=== PATIENT | male | born 1945 | race African-American/Black ===

== ENCOUNTER 2016-11-12 11:59 | Inpatient (IN) | payer OTHER ==
[2016-11-12 12:15] VITALS: BMI 29.2
[2016-11-12] MEDS ORDERED: ONDANSETRON 4 MG/2 ML VIAL IVPUSH ONE (12:57)
[2016-11-12] MEDS ORDERED: ONDANSETRON 4 MG/2 ML VIAL ONE (13:02)
[2016-11-12 13:28] LABS: URINE APPEARANCE SLCLOUDY; URINE BILIRUBIN NEGATIVE (NEGATIVE); URINE COLOR LTYELLOW; URINE GLUCOSE (UA) 3+ (NEGATIVE); URINE KETONE 1+ (NEGATIVE); URINE NITRITE NEGATIVE (NEGATIVE); URINE UROBILINOGEN NEGATIVE E.U./dl (0.2-1.0)
[2016-11-12 13:36] LABS: INR 1.16 (0.82-1.09); PROTHROMBIN TIME (PATIENT) 12.8 SEC (9.98-11.88)
[2016-11-12 13:39] LABS: URINE BLOOD 1+ (NEGATIVE); URINE LEUK ESTERASE 3+ (NEGATIVE); URINE PROTEIN 1+ (NEGATIVE)
[2016-11-12] MEDS ORDERED: SODIUM CHLORIDE 1,000 ML IV STA (13:49)
[2016-11-12 14:21] LABS: URINE RBC 6 /hpf (0-3); URINE WBC 2 /hpf (3-5)
--- NOTE | 2016-11-12 14:52 | PDOC ---
History of Present Illness - General Chief Complaint: Pain Stated Complaint: ABD PAIN Time Seen by Provider: 11/12/16 12:31 History Source: Patient Exam Limitations: No Limitations - History of Present Illness Travel History: No Initial Comments: 11/12/16 13:46 71-year-old male presents to the ED with complaints of worsening abdominal pain , abdominal distention, nausea, and constipation. Patient states was seen here earlier today was discharged home after receiving an enema and did not start the medication prescribed at home due to the above symptoms so decided bring patient to the ER. Patient denies fever, chills, GI disorders, history of constipation, bowel surgery, recent travel, recent illness. Timing/Duration: reports: getting worse Quality: reports: moderate, cramping, fullness Abdominal Pain Onset Location: reports: generalized abdomen Pain Radiation: reports: no radiation Activities at Onset: reports: none Aggravating Factors: improves with: None Alleviating Factors: improves with: None Past History - Past Medical History Allergies/Adverse Reactions: Allergies Allergy/AdvReac Type Severity Reaction Status Date / Time No Known Allergies Allergy Verified 11/12/16 12:12 Home Medications: Ambulatory Orders Canagliflozin [Invokana] 300 mg PO DAILY 11/12/16 Colesevelam HCl [Welchol (Nf)] 3.75 mg PO DAILY 11/12/16 Glipizide 10 mg PO BID 11/12/16 Metformin HCl [Glucophage] 1,000 mg PO BID 11/12/16 Valsartan [Diovan] 160 mg PO DAILY 11/12/16 Diabetes: Yes - Immunization History Immunization Up to Date: No - Psycho/Social/Smoking Cessation Hx Anxiety: No Suicidal Ideation: No Smoking History: Never smoked Have you smoked in the past 12 months: No Information on smoking cessation initiated: No Hx Alcohol Use: No Drug/Substance Use Hx: No Substance Use Type: None Patient Lives Alone: No Lives with/in: spouse/SO Review of Systems - Review of Systems Able to Perform ROS?: Yes Constitutional: No: Symptoms Reported HEENTM: No: Symptoms Reported Respiratory: No: Symptoms reported Cardiac (ROS): No: Symptoms Reported ABD/GI: Yes: Abdominal Distended, Constipated, Nausea, Vomiting, Abdominal cramping : No: Symptoms Reported Musculoskeletal: No: Symptoms Reported Integumentary: No: Symptoms Reported Neurological: No: Symptoms reported Endocrine: No: Symptoms Reported Hematologic/Lymphatic: No: Symptoms Reported *Physical Exam - Vital Signs Last Vital Signs Temp Pulse Resp BP Pulse Ox 97.6 F 86 18 154/78 98 11/12/16 12:12 11/12/16 14:45 11/12/16 14:45 11/12/16 14:45 11/12/16 14:45 - Physical Exam General Appearance: Yes: Nourished, Appropriately Dressed, Mild Distress HEENT: positive: EOMI, TO. negative: Pale Conjunctivae Neck: positive: Supple Respiratory/Chest: positive: Lungs Clear, Normal Breath Sounds. negative: Respiratory Distress, Accessory Muscle Use Gastrointestinal/Abdominal: positive: Normal Bowel Sounds (lower quadrants), Soft, Decreased BS (right upper quadrant), Distended (generalized), Tenderness ( generalized) Musculoskeletal: negative: CVA Tenderness Extremity: positive: Normal Capillary Refill. negative: Pedal Edema Integumentary: positive: Normal Color, Warm, Moist Neurologic: positive: Motor Strength 5/5 (ambulatory) Heart Score/ECG Review - ECG Intrepretation Rhythm: Regular Rhythm (rate 97.) ED Treatment Course - ADDITIONAL ORDERS Additional order review: Laboratory Results 11/12/16 11/12/16 13:14 12:54 INR 1.16 H Urine Color Ltyellow Urine Appearance Slcloudy Urine pH 5.0 Ur Specific [place] 1.021 Urine Protein 1+ H Urine Glucose (UA) 3+ H Urine Ketones 1+ H Urine Blood 1+ H Urine Nitrite Negative Urine Bilirubin Negative Urine Urobilinogen Negative Ur Leukocyte Esterase 3+ H Urine RBC 6 Urine WBC 2 Ur Epithelial Cells Rare - RADIOLOGY Radiology Studies Ordered: Category Date Time Status ABDOMEN & PELVIS CT W/O CONTR [CT] Stat CT Scan 11/12/16 12:58 Completed - Medications Given in the ED: ED Medications Discontinued Medications Generic Name Dose Route Start Last Admin Trade Name Freq PRN Reason Stop Dose Admin Ondansetron HCl 4 mg 11/12/16 12:57 11/12/16 13:09 Zofran Injection IVPUSH 11/12/16 12:58 4 mg ONCE ONE Administration Medical Decision Making - Critical Care Time Total Critical Care Time (minutes): 35 Critical Care Statement: The care of this patient involved high complexity decision making to prevent further life threatening deterioration of the patient 's condition and/or to evalute & treat vital organ system(s) failure or risk of failure. - Medical Decision Making 11/12/16 13:40 Patient with worsening constipation and abdominal distention and nausea. Patient arrives with abdominal distention decreased bowel sounds of the right upper quadrant no complaints of nausea. Patient concerning for obstruction. Patient ordered for additional labs including type and screen and coags including a CT with by mouth contrast. 11/12/16 14:01 Patient unable to tolerate by mouth and started to vomit brown liquid immediately after taking the contrast. Patient ordered for dry CT and will consider NG tube placement once he returns from CT. 11/12/16 14:24 Patient ordered for IV fluids secondary to ketones in urine and vomiting patient also given Zofran following his episode of vomiting in the ER. 11/12/16 14:[address] shows moderate dilatation of the mid small bowel loops with normal sized to terminal ileum consistent with mid to distal small bowel obstruction. Minimal free fluid in the right lower quadrant, pericolic gutter which is of uncertain etiology. Small fat-containing right inguinal hernia also noted. Case discussed with Dr. menezes surgeon who agrees to place NG tube to low wall suction. Preop orders added such as EKG chest x-ray and awaiting callback from GI. Case also discussed with hospitalist since Dr. Clement does not admit his patients. 11/12/16 16:[address] call back from dr Pritchett as of yet *DC/Admit/Observation/Transfer Diagnosis at time of Disposition: Small bowel obstruction - Discharge Dispostion Admit: Yes
--- NOTE | 2016-11-12 15:39 | EKG ---
Test Reason : Blood Pressure : / mmHG Vent. Rate : 097 BPM Atrial Rate : 097 BPM P-R Int : 140 ms QRS Dur : 068 ms QT Int : 334 ms P-R-T Axes : 051 016 009 degrees QTc Int : 424 ms NORMAL SINUS RHYTHM NORMAL ECG NO PREVIOUS ECGS AVAILABLE Confirmed by KARLOS WADE MD ([id number]) on 11/12/2016 3:39:27 PM Referred By: Confirmed By:KARLOS WADE MD
--- NOTE | 2016-11-12 16:02 | CONSULT ---
Consult Consult Specialty:: Surgery: Referred by:: HospitalistMunira M.D. - History of Present Illness Chief Complaint: Abdominal pain since yesterday, last night with vomiting. He has had no prior surgery. Has been having bowel movements, but small amounts. History of Present Illness: As above, abdominal pain , periumbilical since last night with vomiting. - History Source History Provided By: Patient - Past Medical History Endocrine: Yes: Diabetes Mellitus - Alcohol/Substance Use Hx Alcohol Use: No - Smoking History Smoking history: Never smoked Have you smoked in the past 12 months: No Home Medications - Allergies Allergies/Adverse Reactions: Allergies Allergy/AdvReac Type Severity Reaction Status Date / Time No Known Allergies Allergy Verified 11/12/16 12:12 - Home Medications Home Medications: Ambulatory Orders Canagliflozin [Invokana] 300 mg PO DAILY 11/12/16 Colesevelam HCl [Welchol (Nf)] 3.75 mg PO DAILY 11/12/16 Glipizide 10 mg PO BID 11/12/16 Metformin HCl [Glucophage] 1,000 mg PO BID 11/12/16 Valsartan [Diovan] 160 mg PO DAILY 11/12/16 Physical Exam Vital Signs: Vital Signs Temperature 97.6 F 11/12/16 12:12 Pulse Rate 86 11/12/16 14:45 Respiratory Rate 18 11/12/16 14:45 Blood Pressure 154/78 11/12/16 14:45 O2 Sat by Pulse Oximetry (%) 98 11/12/16 14:45 Gastrointestinal: Yes: Distention (Distended abdomen , soft , not tender . No hernia. No palpable mass.) ...Rectal Exam: Yes: WNL Imaging - Results X-ray: Report Reviewed, Image Reviewed (Dilated loops of small bowel in right upper quadrant of abdomen. No free air, no sign of ischemia.) Cat Scan: Report Reviewed, Image Reviewed Problem List - Problems (1) Intestinal obstruction Code(s): K56.60 - UNSPECIFIED INTESTINAL OBSTRUCTION Qualifiers: Intestinal obstruction type: other intestinal obstruction Qualified Code(s): K56.69 - Other intestinal obstruction (2) Abdominal pain Code(s): R10.9 - UNSPECIFIED ABDOMINAL PAIN Qualifiers: Abdominal location: generalized Qualified Code(s): R10.84 - Generalized abdominal pain (3) Vomiting Code(s): R11.10 - VOMITING, UNSPECIFIED Qualifiers: Vomiting type: bilious vomiting (4) Diabetes Code(s): E11.9 - TYPE 2 DIABETES MELLITUS WITHOUT COMPLICATIONS Assessment/Plan Intestinal obstruction, no prior surgery. He has had colonoscopy in 2010. Plan: NG aspiration , hydrate , follow up CT scn of abdomen in a, ,m, If not improved will need surgery.
[2016-11-12] MEDS ORDERED: morphine CARPU-JECT 2 MG/1 ML DISP.SYRIN IVPUSH PRN (16:24)
[2016-11-12] MEDS ORDERED: ONDANSETRON 4 MG/2 ML VIAL IVPB PRN (16:24)
--- NOTE | 2016-11-12 16:28 | CON.GI ---
Consult Consult Specialty:: GI Referred by:: Hospitalists Reason for Consultation:: Vomiting - History of Present Illness Chief Complaint: "I was vomiting" History of Present Illness: 71M admitted for evaluation of vomiting. He was seen at the [facility] ER early this morning for persistent vomiting and abdominal pain from wednesday. He was sent home and returned in the afternoon for continued vomiting. He had a CT scan revealing suspected SBO. He was seen by surgeon Dr. Jj. NGT was placed. He had a colonoscopy in [address] Hensley that revealed a redundant colon and led to the removal of a diminutive hyperplastic polyp in the rectum. He denies any unintentional weight loss, similar episodes in the past, rectal bleeding, melena. His last BM prior to admission was wednesday. - History Source History Provided By: Patient, Family Member, Medical Record Limitations to Obtaining History: No Limitations - Past Medical History Endocrine: Yes: Diabetes Mellitus - Past Surgical History Past Surgical History: Yes: None - Alcohol/Substance Use Hx Alcohol Use: No History of Substance Use: reports: None - Smoking History Smoking history: Never smoked Have you smoked in the past 12 months: No - Social History Usual Living Arrangement: Alone ADL: Independent Place of : Other ([place]) History of Recent Travel: No Home Medications - Allergies Allergies/Adverse Reactions: Allergies Allergy/AdvReac Type Severity Reaction Status Date / Time No Known Allergies Allergy Verified 11/12/16 12:12 - Home Medications Home Medications: Ambulatory Orders Canagliflozin [Invokana] 300 mg PO DAILY 11/12/16 Colesevelam HCl [Welchol (Nf)] 3.75 mg PO DAILY 11/12/16 Glipizide 10 mg PO BID 11/12/16 Metformin HCl [Glucophage] 1,000 mg PO BID 11/12/16 Valsartan [Diovan] 160 mg PO DAILY 11/12/16 Family Disease History - Family Disease History Family Disease History: Other: Father ( 36: bowel obstruction), Mother ( 90: old age) Other Family History: 6 healthy siblings Review of Systems - Review of Systems Constitutional: denies: Unintentional Wgt. Loss Cardiovascular: denies: Chest Pain Respiratory: denies: SOB Gastrointestinal: reports: Abdominal Pain, Nausea, Vomiting. denies: Constipation, Diarrhea, Melena, Rectal Bleeding, Vomiting Blood Physical Exam-GI Vital Signs: Vital Signs Temperature 97.6 F 11/12/16 12:12 Pulse Rate 87 11/12/16 15:45 Respiratory Rate 18 11/12/16 15:45 Blood Pressure 153/90 11/12/16 15:45 O2 Sat by Pulse Oximetry (%) 99 11/12/16 15:45 Constitutional: Yes: Calm Eyes: No: Sclera Icterus Cardiovascular: Yes: Regular Rate and Rhythm. No: Murmur Respiratory: Yes: CTA Bilaterally Gastrointestinal Inspection: Yes: Distention (mildly protuberant) ...Auscultate: Yes: Hypoactive Bowel Sounds ...Palpate: Yes: Tenderness (TTP Mid abdomen). No: Tenderness, Rebound ...Percussion: Yes: Tympanitic (mildly tympanitic) ...Rectal Exam: Yes: Other (No blood/stool 2 + prostate) Edema: No Neurological: Yes: Alert, Oriented Labs: INR, PTT INR 1.16 (0.82-1.09) H 11/12/16 12:54 Laboratory Tests 11/12/16 11/12/16 02:25 02:25 WBC 8.2 Hgb 16.8 Hct 50.1 H Plt Count 185 Neutrophils % 85.2 H Sodium 142 Potassium 4.8 Chloride 97 L Carbon Dioxide 29 BUN 14 Creatinine 1.3 Total Bilirubin 0.8 AST 38 H ALT 53 Alkaline Phosphatase 99 Creatine Kinase 365 H Albumin 4.4 Lipase 110 Imaging - Results Cat Scan: Report Reviewed, Image Reviewed Problem List - Problems (1) Small bowel obstruction Assessment/Plan: Clay abdomen. ? band, ? internal hernia / alternate pathology Evaluated and being managed by surgery NGT to low suction Timing of repeat imaging per surgery Code(s): K56.69 - OTHER INTESTINAL OBSTRUCTION
--- NOTE | 2016-11-12 17:53 | PN ---
Teaching Attending Note Name of Resident: Isi Horne ATTENDING PHYSICIAN STATEMENT I saw and evaluated the patient. I reviewed the resident's note and discussed the case with the resident. I agree with the resident's findings and plan as documented. SUBJECTIVE: This is a 71-year-old man with a history of HTN, hyperlipidemia, type 2 DM who initially came to the ER last night with abdominal pain. He reported that his last BM was 2 days ago. He denied nausea and vomiting. He was afebrile and tachycardic. His abdomen was distended but non-tender. X-rays showed multiple air-fluid levels with air in the colon. He was treated with an enema and discharged with a prescription for Miralax. He returned this afternoon because the pain was worsening and he developed nausea. He denies fever, chills. He has no history of surgery. CT shows SBO. OBJECTIVE: Vital Signs Period Temp Pulse Resp BP Sys/Balbuena Pulse Ox Last 24 Hr 97.6 F-98.8 F 86-107 18-20 127-154/78-98 97-99 HEART: S1 S2, RRR LUNGS: Clear ABDOMEN: Distended, mild tenderness mid abdomen, decreased BS EXTREMITIES: No edema ASSESSMENT AND PLAN: This is a 71-year-old man with a history of HTN, hyperlipidemia, type 2 DM who presented to the ER with worsening abdominal pain, distention and nausea. 1. SBO - NG tube inserted - NPO - IV fluid - Surgery consult 2. Type 2 diabetes mellitus - Hold metformin, glipizied, Invokana - Fingersticks with Novolog sliding scale 3. Hypertension - Hold Diovan while NPO 4. Hyperlipidemia - Hold Welchol while NPO
[2016-11-12] MEDS: DEXTROSE 5%-0.45% SALINE 1,000 ML IV SCH (17:56)
--- NOTE | 2016-11-12 18:09 | HP ---
CHIEF COMPLAINT: nausea/vomiting PCP: HISTORY OF PRESENT ILLNESS: 71 yea r old amke with PMHX, DM, HTN, HLD, present to the ER with nausea and vomiting. HE was here last night for same symptoms. Abdominal film was unremarkable, he was given 2 emenas and sent home. At home patient did not have a BM, and still with persistent nausea and vomiting. He claims he saw brown emesis, with black coffee ground appearance. Patien have never had any surgeries. He had colonoscopy in 2009, with Dr. Marte, revealed hyperplastic polyp. Denies fever, chilld, DIANE, Chest pain, sob. ER course was notable for: (1) Abdominal CT with dilated loops of bowel; possible SBO (2) (3) Recent Travel:no PAST MEDICAL HISTORY: DM, HTN, HLD PAST SURGICAL HISTORY: none Social History: Smoking:no Alcohol:no Drugs: no Family History: Allergies No Known Allergies Allergy (Verified 11/12/16 12:12) HOME MEDICATIONS: Home Medications Medication Instructions Recorded Canagliflozin [Invokana] 300 mg PO DAILY 11/12/16 Colesevelam HCl [Welchol (Nf)] 3.75 mg PO DAILY 11/12/16 Glipizide 10 mg PO BID 11/12/16 Metformin HCl [Glucophage] 1,000 mg PO BID 11/12/16 Valsartan [Diovan] 160 mg PO DAILY 11/12/16 REVIEW OF SYSTEMS CONSTITUTIONAL: Absent: fever, chills, diaphoresis, generalized weakness, malaise, loss of appetite, weight change HEENT: Absent: rhinorrhea, nasal congestion, throat pain, throat swelling, difficulty swallowing, mouth swelling, ear pain, eye pain, visual changes CARDIOVASCULAR: Absent: chest pain, syncope, palpitations, irregular heart rate, lightheadedness , peripheral edema RESPIRATORY: Absent: cough, shortness of breath, dyspnea with exertion, orthopnea, wheezing, stridor, hemoptysis GASTROINTESTINAL: Positive: nausea, vomiting, distention Absent: abdominal pain,diarrhea, constipation, melena, hematochezia GENITOURINARY: Absent: dysuria, frequency, urgency, hesitancy, hematuria, flank pain, genital pain MUSCULOSKELETAL: Absent: myalgia, arthralgia, joint swelling, back pain, neck pain SKIN: Absent: rash, itching, pallor HEMATOLOGIC/IMMUNOLOGIC: Absent: easy bleeding, easy bruising, lymphadenopathy, frequent infections ENDOCRINE: Absent: unexplained weight gain, unexplained weight loss, heat intolerance, cold intolerance NEUROLOGIC: Absent: headache, focal weakness or paresthesias, dizziness, unsteady gait, seizure, mental status changes, bladder or bowel incontinence PSYCHIATRIC: Absent: anxiety, depression, suicidal or homicidal ideation, hallucinations. PHYSICAL EXAMINATION Vital Signs - 24 hr 11/12/16 11/12/16 15:45 17:41 Temperature 98.8 F Pulse Rate 88 Pulse Rate [ 87 Right Radial] Respiratory 18 20 Rate Blood Pressure 139/84 Blood Pressure 153/90 [Right Arm] O2 Sat by Pulse 99 Oximetry (%) GENERAL: Awake, alert, and fully oriented, in no acute distress. HEAD: Normal with no signs of trauma. EYES: Pupils equal, round and reactive to light, extraocular movements intact, sclera anicteric, conjunctiva clear. No lid lag. EARS, NOSE, THROAT: NG tube in place LUNGS: Breath sounds equal, clear to auscultation bilaterally. No wheezes, and no crackles. No accessory muscle use. HEART: Regular rate and rhythm, normal S1 and S2 without murmur, rub or gallop. ABDOMEN: distended, normoactive bowel sounds, no guarding, no rebound, no masses. No hepatomegaly or splenomegaly. MUSCULOSKELETAL: Normal range of motion at all joints. No bony deformities or tenderness. No CVA tenderness. UPPER EXTREMITIES: 2+ pulses, warm, well-perfused. No cyanosis. No clubbing. Cap refill <2 seconds. No peripheral edema. LOWER EXTREMITIES: 2+ pulses, warm, well-perfused. No calf tenderness. No peripheral edema. NEUROLOGICAL: Cranial nerves II-XII intact. Normal speech. Normal gait. PSYCHIATRIC: Cooperative. Good eye contact. Appropriate mood and affect. SKIN: Warm, dry, normal turgor, no rashes or lesions noted. ASSESSMENT/PLAN: 71 year old male with PMHS DM, HTN , HLD, constipation,no previous surgeries, presents with nause and vomiting brown/black emesis x 1 day. 1. Small bowel obstruction: virgin abdomen r/o hernia/CA or other acute pathology -NPO , NG tube, IVF, anti emetic, pain control -CT abdomen today reveals dilated loops of bowel; transition point not seen -Repeat CT in am ; if symptoms do not improve; most likely need surgery; -Surgery/GI consulted 2. DM : -hypergylcemia: SS -NPO for now ; check BS q4h: insulin SS; on IVF w dextrose 3. HTN: -NPO now; monitor vital for elevated bp; medication prn 4. Acute kidney injury: secondary to prerenal/dehydration -IVF; trend BUN/CR FEN: Fluids: dextrose 1/2 NS 100mls/hr Electrolytes: wnl Diet : NPO VTE prophylaxis: scds for now Problem List - Problem (1) Diabetes Code(s): E11.9 - TYPE 2 DIABETES MELLITUS WITHOUT COMPLICATIONS (2) Small bowel obstruction Code(s): K56.69 - OTHER INTESTINAL OBSTRUCTION (3) Vomiting Code(s): R11.10 - VOMITING, UNSPECIFIED Qualifiers: Vomiting type: bilious vomiting (4) Constipation Code(s): K59.00 - CONSTIPATION, UNSPECIFIED Qualifiers: Constipation type: unspecified constipation type Qualified Code(s): K59.00 - Constipation, unspecified (5) HTN (hypertension) Code(s): I10 - ESSENTIAL (PRIMARY) HYPERTENSION Visit type - Emergency Visit Emergency Visit: Yes ED Registration Date: 11/12/16 Care time: The patient presented to the Emergency Department on the above date and was hospitalized for further evaluation of their emergent condition. - New Patient This patient is new to me today: Yes Date on this admission: 11/12/16 - Critical Care Critical Care patient: No
[2016-11-12] MEDS: PANTOPRAZOLE SODIUM 100 ML IVPB SCH (18:25)
[2016-11-12] MEDS: INSULIN SLIDING SCALE (NOVOLOG) 1 VIAL SQ SCH ×2 (18:25→22:20)
[2016-11-12 21:25] LABS: BASOPHIL 0.1 % (0-2.0); EOSINOPHIL 0.2 % (0-4.5); MCH 28.6 pg (25.7-33.7); MCHC 33.6 g/dl (32.0-35.9); MEAN CELL VOLUME 85.1 fl (80-96); MEAN PLT VOLUME 8.1 fl (7.5-11.1); NEUTROPHILS 81.4 % (42.8-82.8); PLATELET COUNT 163 K/MM3 (134-434); RDW 14.7 % (11.9-15.9); WHITE BLOOD COUNT 6.2 K/mm3 (4.0-10.0)
[2016-11-12 21:48] LABS: CALCIUM 8.9 mg/dL (8.5-10.1)
[2016-11-13] MEDS: INSULIN SLIDING SCALE (NOVOLOG) 1 VIAL SQ SCH ×6 (02:36→21:11)
[2016-11-13] MEDS: DEXTROSE 5%-0.45% SALINE 1,000 ML IV SCH (04:30)
[2016-11-13 07:57] LABS: BASOPHIL 0.4 % (0-2.0); EOSINOPHIL 0.4 % (0-4.5); MCH 28.6 pg (25.7-33.7); MCHC 33.4 g/dl (32.0-35.9); MEAN CELL VOLUME 85.8 fl (80-96); MEAN PLT VOLUME 7.9 fl (7.5-11.1); NEUTROPHILS 69.7 % (42.8-82.8); PLATELET COUNT 150 K/MM3 (134-434)
[2016-11-13 08:22] LABS: CALCIUM 8.8 mg/dL (8.5-10.1); MAGNESIUM 3.2 mg/dL (1.8-2.4)
[2016-11-13 08:25] LABS: CREATININE 1.1 mg/dL (0.7-1.3); PHOSPHOROUS 3.5 mg/dL (2.5-4.9)
[2016-11-13] MEDS: PANTOPRAZOLE SODIUM 100 ML IVPB SCH (10:14)
[2016-11-13] MEDS ORDERED: INSULIN (NOVOLOG) ASPART 100 UNITS/ML 10ML VIAL ONE (11:17)
--- NOTE | 2016-11-13 14:55 | PN ---
GI Progress Note Subjective: GI NOte: Pain has resolved. Had several large BMs since the CT contrast. Tolerated liquids and wants more to eat. NO bleeding. CT reveals no obstruction but there are thickened bowel loops which do not extend to involve the ileum. - Objective Vital Signs: Vital Signs Temperature 97.2 F L 11/13/16 14:29 Pulse Rate 92 H 11/13/16 14:29 Respiratory Rate 20 11/13/16 14:29 Blood Pressure 126/77 11/13/16 14:29 O2 Sat by Pulse Oximetry (%) 99 11/13/16 09:00 Constitutional: Calm Gastrointestinal Inspection: Yes: Distention ...Auscultate: Yes: Normoactive Bowel Sounds ...Palpate: Yes: Soft, Other (nontender) ...Percussion: Yes: Tympanitic Labs: CBC, BMP 11/13/16 06:30 11/13/16 06:30 INR, PTT INR 1.16 (0.82-1.09) H 11/12/16 12:54 Assessment/Plan Suspect resolving mesenteric adenitis or other infectious enteritis but cannot exclude Crohn's Disease, a resolved internal hernia or small bowel diverticulitis. Doubt ischemia or neoplasms. Will advance diet as tolerated. If he fails to fully resolve he will need CT enterography and perhaps a capsule endoscopy.
--- NOTE | 2016-11-13 15:42 | PN ---
<Isi Horne - Last Filed: 11/13/16 15:34> Physical Exam: SUBJECTIVE: Patient seen and examined; NG tube D/c'd. 2 loose BM today. No nausea/vomiting. Denies fever, chills, abdominal pain. OBJECTIVE: Vital Signs Period Temp Pulse Resp BP Sys/Balbuena Pulse Ox Last 24 Hr 97.2 F-98.8 F 86-95 18-20 126-153/77-93 99-99 GENERAL: The patient is awake, alert, and fully oriented, in no acute distress. HEAD: Normal with no signs of trauma. EYES: PERRL, extraocular movements intact, sclera anicteric, conjunctiva clear. No ptosis. LUNGS: Breath sounds equal, clear to auscultation bilaterally, no wheezes, no crackles, no accessory muscle use. HEART: Regular rate and rhythm, S1, S2 without murmur, rub or gallop. ABDOMEN: Soft, less distended, hyperactive bowel sounds, no guarding, no rebound, no hepatosplenomegaly, no masses. EXTREMITIES: 2+ pulses, warm, well-perfused, no edema. NEUROLOGICAL: Cranial nerves II through XII grossly intact. Normal speech, gait not observed. PSYCH: Normal mood, normal affect. SKIN: Warm, dry, normal turgor, no rashes or lesions noted Active Medications CBC, BMP 11/13/16 06:30 11/13/16 06:30 Generic Name Dose Route Start Last Admin Trade Name Freq PRN Reason Stop Dose Admin Dextrose/Sodium Chloride 1,000 mls @ 100 mls/hr 11/12/16 16:30 11/13/16 04:30 D5-1/2ns - IV 100 mls/hr ASDIR DEBBIE Administration Pantoprazole Sodium 100 mls @ 200 mls/hr 11/12/16 18:15 11/13/16 10:14 Protonix 40mg Ivpb (Pre-Docked) IVPB 200 mls/hr DAILY DEBBIE Administration Insulin Aspart 1 vial 11/12/16 18:00 11/13/16 11:15 Novolog Vial Sliding Scale - SQ 4 units Q4HPO DEBBIE Administration Protocol Ondansetron HCl 4 mg 11/12/16 16:24 Zofran Injection IVPB Q6H PRN NAUSEA ASSESSMENT/PLAN: 71 year old male with PMHS DM, HTN , HLD, constipation,no previous surgeries, presents with nausea and vomiting brown/black emesis x [address] this am negative for small bowel obstruction. Advance diet to soft. Patient sisters states today that their father of an "obstruction" at age 40, no other detailed history known. 1. Nausea/ vomiting most likely secondary to resolved SBO/acute infective pathology/ hernia ; r/o inflammatory process or other acute pathology -advance diet; if tolerates and H/H/ are stable; d/c in am -f/u GI as outpatient -Surgery/GI consulted 2. DM : -insulin SS -BS ACHS 3. HTN: -restart valsartan 4. Acute kidney injury: secondary to prerenal/dehydration -IVF; trend 01/10.1 FEN: Fluids: NS 100mls/hr Electrolytes: wnl Diet : soft VTE prophylaxis: scds Disposition: d/c in am if stable; dnaiel diet; Problem List - Problems (1) Diabetes Code(s): E11.9 - TYPE 2 DIABETES MELLITUS WITHOUT COMPLICATIONS (2) Small bowel obstruction Code(s): K56.69 - OTHER INTESTINAL OBSTRUCTION (3) Vomiting Code(s): R11.10 - VOMITING, UNSPECIFIED Qualifiers: Vomiting type: bilious vomiting (4) Constipation Code(s): K59.00 - CONSTIPATION, UNSPECIFIED Qualifiers: Constipation type: unspecified constipation type Qualified Code(s): K59.00 - Constipation, unspecified (5) HTN (hypertension) Code(s): I10 - ESSENTIAL (PRIMARY) HYPERTENSION Visit type - Emergency Visit Emergency Visit: Yes ED Registration Date: 11/12/16 Care time: The patient presented to the Emergency Department on the above date and was hospitalized for further evaluation of their emergent condition. - New Patient This patient is new to me today: No - Critical Care Critical Care patient: No <Alexis Bragg - Last Filed: 11/13/16 16:14> Physical Exam: ATTENDING PHYSICIAN STATEMENT I saw and evaluated the patient. I reviewed the resident's note and discussed the case with the resident. I agree with the resident's findings and plan as documented. SUBJECTIVE: seen and evaluated at the bedside OBJECTIVE: resting comfortably in no distress ASSESSMENT AND PLAN: 71 year old man with PMHX, DM, HTN, HLD admitted for possible SBO -repeat CT shows now SBO and thickened small bowel wall -possibly due to gasteroenteritis -pt tolerating liquids; will advance to soft -Hb stable
[2016-11-13] MEDS ORDERED: SODIUM CHLORIDE 1,000 ML IV SCH (15:45)
[2016-11-13] MEDS: VALSARTAN 160 MG TABLET (UD) PO SCH (16:56)
--- NOTE | 2016-11-13 19:15 | PN ---
Progress Note, Physician - Current Medication List Current Medications: Active Medications Insulin Aspart (Novolog Vial Sliding Scale -) 1 vial SQ Q4HPO DEBBIE PRN Reason: Protocol Last Admin: 11/13/16 18:17 Dose: 2 units Ondansetron HCl (Zofran Injection) 4 mg IVPB Q6H PRN PRN Reason: NAUSEA Pantoprazole Sodium (Protonix -) 40 mg PO DAILY DEBBIE Valsartan (Diovan -) 160 mg PO DAILY [facility] Last Admin: 11/13/16 16:56 Dose: 160 mg - Objective Vital Signs: Vital Signs Temperature 98.1 F 11/13/16 16:25 Pulse Rate 88 11/13/16 16:25 Respiratory Rate 20 11/13/16 16:25 Blood Pressure 121/89 11/13/16 16:25 O2 Sat by Pulse Oximetry (%) 99 11/13/16 09:00 Labs: CBC, BMP 11/13/16 06:30 11/13/16 06:30 INR, PTT INR 1.16 (0.82-1.09) H 11/12/16 12:54 Problem List - Problems (1) Intestinal obstruction Code(s): K56.60 - UNSPECIFIED INTESTINAL OBSTRUCTION Qualifiers: Intestinal obstruction type: other intestinal obstruction Qualified Code(s): K56.69 - Other intestinal obstruction (2) Abdominal pain Code(s): R10.9 - UNSPECIFIED ABDOMINAL PAIN Qualifiers: Abdominal location: generalized Qualified Code(s): R10.84 - Generalized abdominal pain (3) Vomiting Code(s): R11.10 - VOMITING, UNSPECIFIED Qualifiers: Vomiting type: bilious vomiting (4) Diabetes Code(s): E11.9 - TYPE 2 DIABETES MELLITUS WITHOUT COMPLICATIONS Assessment/Plan Patient seen early this morning and again in the evening. Has no abdominal pain . Has had several bowel movements. Abdomen is soft , not tender. Very minimal NG drainage. CT scan shows no intestinal obstruction but enteritis. D/C NG tube , resume feeding. Medical management of enteritis.
[2016-11-14] MEDS ORDERED: INSULIN SLIDING SCALE (NOVOLOG) 1 VIAL SQ SCH (07:00)
[2016-11-14 07:41] LABS: BASOPHIL 0.5 % (0-2.0); EOSINOPHIL 1.7 % (0-4.5); MCH 28.7 pg (25.7-33.7); MCHC 33.2 g/dl (32.0-35.9); MEAN CELL VOLUME 86.7 fl (80-96); MEAN PLT VOLUME 7.8 fl (7.5-11.1); NEUTROPHILS 46.7 % (42.8-82.8); PLATELET COUNT 120 K/MM3 (134-434); RDW 14.8 % (11.9-15.9); WHITE BLOOD COUNT 3.8 K/mm3 (4.0-10.0)
[2016-11-14 08:07] LABS: ALBUMIN 3.4 g/dl (3.4-5.0); ANION GAP 11 (8-16); CALCIUM 8.5 mg/dL (8.5-10.1); CO2 29 mmol/L (21-32); GLUCOSE,RANDOM 149 mg/dL (74-106); SGOT/AST 24 U/L (15-37)
[2016-11-14 08:10] LABS: ALK PHOS 64 U/L (45-117); BILIRUBIN,TOTAL 0.7 mg/dL (0.2-1.0); C-REACTIVE PROTEIN 4.4 MG/DL (0.00-0.3); CREATININE 1.1 mg/dL (0.7-1.3); LDH 216 U/L (87-241); SGPT/ALT 33 U/L (12-78); TOT PROT 6.1 g/dl (6.4-8.2)
[2016-11-14] MEDS ORDERED: PT OWN MED DRAWER 7, Y5N ONE (09:18)
[2016-11-14] MEDS: VALSARTAN 160 MG TABLET (UD) PO SCH (09:21)
--- NOTE | 2016-11-14 09:49 | DS ---
Physical Examination Vital Signs: Vital Signs Temperature 98.8 F 11/14/16 06:00 Pulse Rate 79 11/14/16 06:00 Respiratory Rate 16 11/14/16 06:00 Blood Pressure 119/53 11/14/16 06:00 O2 Sat by Pulse Oximetry (%) 99 11/13/16 21:00 Labs: CBC, BMP 11/14/16 06:00 11/14/16 06:00 Discharge Summary Reason For Visit: SMALL BOWEL OBSTRUCTION Current Active Problems Abdominal pain (Acute) Diabetes (Acute) HTN (hypertension) (Acute) Intestinal obstruction (Acute) Small bowel obstruction (Acute) Vomiting (Acute) Hospital Course: 71 yea r old amke with PMHX, DM, HTN, HLD, present to the ER with nausea and vomiting. HE was here last night for same symptoms. Abdominal film was unremarkable, he was given 2 emenas and sent home. At home patient did not have a BM, and still with persistent nausea and vomiting. He claims he saw brown emesis, with black coffee ground appearance. Patien have never had any surgeries. He had colonoscopy in 2009, with Dr. Marte, revealed hyperplastic polyp. Denies fever, chilld, DIANE, Chest pain, sob. 71 year old man with PMHX, DM, HTN, HLD admitted for possible SBO -repeat CT shows now SBO and thickened small bowel wall -possibly due to gasteroenteritis -tolerating diet well -Hb showed slight decrease but likely dilutional as pt was getting IVF hydration and platelets decreased as well -to follow up with PCP as an outpatient I spent greater than 40 minutes preparing this discharge - Instructions Referrals: Mikie Clement MD [Primary Care Provider] - 2 Weeks - Home Medications Comprehensive Discharge Medication List: Ambulatory Orders Canagliflozin [Invokana] 300 mg PO DAILY 11/12/16 Colesevelam HCl [Welchol (Nf)] 3.75 mg PO DAILY 11/12/16 Glipizide 10 mg PO BID 11/12/16 Metformin HCl [Glucophage] 1,000 mg PO BID 11/12/16 Valsartan [Diovan] 160 mg PO DAILY 11/12/16 This patient is new to me today: No Emergency Visit: Yes ED Registration Date: 11/12/16 Care time: The patient presented to the Emergency Department on the above date and was hospitalized for further evaluation of their emergent condition. Critical Care patient: No - Discharge Referral Referred to [facility] Yes Physician Referral: Mikie Lombardo MD ([facility])
[2016-11-14] MEDS ORDERED: PANTOPRAZOLE 40 MG TABLET (FP) PO SCH (10:00)
[2016-11-14 10:16] VITALS: BP 125/76; PULSE 84; TEMP 98.7
== END 2016-11-14 11:19 | disposition home or self-care (01) | DRG 392 ==
LOC: JER 11:59 → JERBED 15:06 → J8W 16:03
PROVIDERS: ADMIT Internal Medicine; ATTEND Internal Medicine
PROC: 0D9670Z Drainage of Stomach with Drainage Device, Via Natural or Artificial Opening (ICD-10-PCS; principal; 2016-11-13)
DX: K52.9 Noninfective gastroenteritis and colitis, unspecified (principal); N17.9 Acute kidney failure, unspecified; E86.0 Dehydration; E78.5 Hyperlipidemia, unspecified; E11.9 Type 2 diabetes mellitus without complications; I10 Essential (primary) hypertension; Z79.84 Long term (current) use of oral hypoglycemic drugs; K59.00 Constipation, unspecified
CPT/HCPCS: 36415; 71010-TC; 74020-TC; 74176-TC; 80048; 80053; 81003; 81015; 82550; 82553; 83605; 83615; 83690; 83735; 84100; 84484; 85025; 85610; 86140; 86671; 86850; 86900; 86901; 93005; 93010; 99283-25; 99284-25; Q9967

== ENCOUNTER 2018-01-20 07:02 | Emergency (ER) | payer OTHER ==
--- NOTE | 2018-01-20 07:15 | PDOC ---
History of Present Illness - General Stated Complaint: RIGHT KNEE PAIN Time Seen by Provider: 01/20/18 07:15 - History of Present Illness Initial Comments: 01/20/18 07:16 Mr. Cullen is a 73 yo male w/ pmh of DM, HTN, HLD who presents complaining of knee pain since he walked into a chair this morning at approximately 2am on his way to the bathroom. He reports it had initially swollen up a lot but that swelling has now decreased. He is able to walk currently however does so with a limp. He has no other complaints at this time. The patient denies chest pain, shortness of breath, headache and dizziness. Denies fever, chills, nausea, vomit, diarrhea and constipation. Denies dysuria, frequency, urgency and hematuria. Allergies: NKDA Past History - Past Medical History Allergies/Adverse Reactions: Allergies Allergy/AdvReac Type Severity Reaction Status Date / Time No Known Allergies Allergy Verified 11/12/16 12:12 Home Medications: Ambulatory Orders Canagliflozin [Invokana] 300 mg PO DAILY 11/12/16 Colesevelam HCl [Welchol (Nf)] 3.75 mg PO DAILY 11/12/16 Metformin HCl [Glucophage] 1,000 mg PO BID 11/12/16 Exenatide [Byetta] 10 mcg SQ DAILY 01/20/18 Simvastatin 40 mg PO DAILY 01/20/18 Diabetes: Yes HTN: Yes - Immunization History Immunization Up to Date: No - Suicide/Smoking/Psychosocial Hx Smoking History: Never smoked Have you smoked in the past 12 months: No Hx Alcohol Use: No Drug/Substance Use Hx: No Substance Use Type: None Hx Substance Use Treatment: No Review of Systems - Review of Systems Comments:: 01/20/18 07:26 GENERAL/CONSTITUTIONAL: No fever or chills. No weakness. HEAD, EYES, EARS, NOSE AND THROAT: No change in vision. No ear pain or discharge. No sore throat. CARDIOVASCULAR: No chest pain or shortness of breath RESPIRATORY: No cough, wheezing, or hemoptysis. GASTROINTESTINAL: No nausea, vomiting, diarrhea or constipation. GENITOURINARY: No dysuria, frequency, or change in urination. MUSCULOSKELETAL: +Right outside knee pain at impact site SKIN: No rash NEUROLOGIC: No headache, vertigo, loss of consciousness, or change in strength/ sensation. ENDOCRINE: No increased thirst. No abnormal weight change HEMATOLOGIC/LYMPHATIC: No anemia, easy bleeding, or history of blood clots. ALLERGIC/IMMUNOLOGIC: No hives or skin allergy. *Physical Exam - Physical Exam Comments: 01/20/18 07:27 GENERAL: Awake, alert, and fully oriented, in no acute distress HEAD: No signs of trauma, normocephalic, atraumatic EYES: PERRLA, EOMI, sclera anicteric, conjunctiva clear ENT: Auricles normal inspection, hearing grossly normal, nares patent, oropharynx clear without exudates. Moist mucosa NECK: Normal ROM, supple, no lymphadenopathy, JVD, or masses LUNGS: No distress, speaks full sentences, clear to auscultation bilaterally HEART: Regular rate and rhythm, normal S1 and S2, no murmurs, rubs or gallops, peripheral pulses normal and equal bilaterally. ABDOMEN: Soft, nontender, normoactive bowel sounds. No guarding, no rebound. No masses EXTREMITIES: +Right knee appears swollen anteriorly with tenderness to palpation on lateral superior aspect. No limitation of motion. NEUROLOGICAL: Cranial nerves II through XII grossly intact. Normal speech, normal gait, no focal sensorimotor deficits SKIN: Warm, Dry, normal turgor, no rashes or lesions noted. Medical Decision Making - Medical Decision Making 01/20/18 07:28 Mr. Cullen is a 73 yo male w/ pmh as described who presents for evaluation of right knee pain. He is able to walk with a slight limp at this time and declines pain medication. Reports he came here "to get checked out" only. Patient able to range knee completely with only mild swelling and TTP at this time. Patient is retired and will be able to rest and ice knee as needed. Discussed pain control with OTC medicines and patient verbalized understanding and agreement. Will discharge with ortho follow-up as needed. Discharging patient to home. *DC/Admit/Observation/Transfer Diagnosis at time of Disposition: Bursitis of right knee Qualifiers: Knee bursitis location: unspecified Qualified Code(s): M70.51 - Other bursitis of knee, right knee - Discharge Dispostion Disposition: HOME - Referrals Referrals: Mikie Clement MD [Primary Care Provider] - Carter Morales MD [Staff Physician] - - Patient Instructions Printed Discharge Instructions: DI for Knee Pain, DI for Bursitis Additional Instructions: Please return to ER if any increase in pain, fever, chills, or other concerning symptoms. Rest knee and elevate as discussed and take over the counter medications per package instructions for pain control. Follow-up with orthopedics as needed for further evaluation. - Post Discharge Activity
[2018-01-20 07:33] VITALS: BP 155/100; PULSE 85; TEMP 98.1; BMI 29.7
--- NOTE | 2018-01-20 07:51 | PDOC ---
Attending Attestation - Resident Resident Name: Montana Walsh - ED Attending Attestation I have performed the following: I have examined & evaluated the patient, The case was reviewed & discussed with the resident, I agree w/resident's findings & plan, Exceptions are as noted - HPI HPI: 01/20/18 07:51 73y M hx of dm, htn, hl presents with R knee pain after bumping his knee last night against a chair, noticed some swelling and pain on his knee. Notes the swelling has improved and the pain is minimal. Denies any redness/ numnbess/ tingling, no falls or other injuries. GENERAL: The patient is awake, alert, and fully oriented, Nontoxic - in no acute distress. R KNEE Exam: swelling of the R knee bursa, minimal tenderness, no erythema, warmth no focal bony tenderness, normal ROM of R knee. Normal gait. n/v intact distally dx: traumatic bursitis supportive care at home - motrin/tylenol, rest, elevation PMD fu - Physicial Exam PE: 01/20/18 08:07 see above - Medical Decision Making 01/20/18 08:06 see above
== END 2018-01-20 08:27 | disposition home or self-care (01) ==
LOC: JER 07:02
DX: E78.00 Pure hypercholesterolemia, unspecified (principal); E11.9 Type 2 diabetes mellitus without complications; Z79.84 Long term (current) use of oral hypoglycemic drugs; W22.03XA Walked into furniture, initial encounter; Y93.89 Activity, other specified; Y92.038 Other place in apartment as the place of occurrence of the external cause; Y99.8 Other external cause status
CPT/HCPCS: 99282-25

== ENCOUNTER 2019-08-16 18:10 | Inpatient (IN) | payer OTHER ==
[2019-08-16 18:16] VITALS: BMI 30.4
--- NOTE | 2019-08-16 18:17 | PDOC ---
Rapid Medical Evaluation Chief Complaint: Rectal Bleed Time Seen by Provider: 08/16/19 18:13 Medical Evaluation: Allergies Allergy/AdvReac Type Severity Reaction Status Date / Time No Known Allergies Allergy Verified 11/12/16 12:12 08/16/19 18:14 Patient c/o: rectal bleeding since seen by urologist today, states something was put up there and felt some pressure, had 4 bms since this afternoon, no abd pain, + rectal pain Patient on brief exam: tachy, no abd tenderness Patient ordered for: labs, type and screen , iv, ekg Patient to proceed to the ED Discharge Disposition - Diagnosis Rectal bleeding - Discharge Dispostion Condition at time of disposition: Fair - Referrals - Patient Instructions - Post Discharge Activity
[2019-08-16 18:50] LABS: BASO % 0.4 % (0-2.0); EOS % 0.1 % (0-4.5); HEMATOCRIT 40.8 % (35.4-49); HEMOGLOBIN 13.6 GM/dL (11.7-16.9); LYMPH % 18.8 % (8-40); MCH 27.1 pg (25.7-33.7); MCHC 33.3 g/dl (32.0-35.9); MEAN CELL VOLUME 81.3 fl (80-96); MEAN PLT VOLUME 7.3 fl (7.5-11.1); MONO % 6.1 % (3.8-10.2); NEUT % 74.6 % (42.8-82.8); PLATELET COUNT 192 K/MM3 (134-434); RBC 5.02 M/mm3 (4.00-5.60); RDW 17.6 % (11.9-15.9); WHITE BLOOD COUNT 5.9 K/mm3 (4.0-10.0)
[2019-08-16 19:06] LABS: BILIRUBIN,TOTAL 0.6 mg/dL (0.2-1); BLOOD UREA NITROGEN 12.3 mg/dL (7-18); CALCIUM 8.8 mg/dL (8.5-10.1); CREATININE 1.3 mg/dL (0.55-1.3); POTASSIUM 4.2 mmol/L (3.5-5.1)
--- NOTE | 2019-08-16 19:37 | PDOC ---
History of Present Illness - General Chief Complaint: Rectal Bleed Stated Complaint: RECTAL BLEEDING Time Seen by Provider: 08/16/19 18:13 - History of Present Illness Initial Comments: 08/16/19 19:37 74 yo M PMH DM, HTN, HLD, enlarged prostate, p/w bloody bowel movements. Patient reports that he saw his urologist (Dr. Celeste) for some procedure today, and had had 4 bloody bowel movements since then. Patient with poor insight, does not know what the procedure was or the reason it was being performed. Complains of generalized weakness, but denies CP, SOB, abd pain, constipation/ diarrhea, DIAEN. Patient reports that the bowel movements have alternated between bright red, black, and brown streaked with blood. Has no prior history of rectal bleeding and is not on any blood thinners. Past History - Past Medical History Allergies/Adverse Reactions: Allergies Allergy/AdvReac Type Severity Reaction Status Date / Time No Known Allergies Allergy Verified 08/16/19 18:15 Home Medications: Ambulatory Orders Canagliflozin [Invokana] 300 mg PO DAILY 11/12/16 Colesevelam HCl [Welchol (Nf)] 3.75 mg PO DAILY 11/12/16 Metformin HCl [Glucophage] 1,000 mg PO BID 11/12/16 Exenatide [Byetta] 10 mcg SQ DAILY 01/20/18 Simvastatin 40 mg PO DAILY 01/20/18 Brimonidine/Dorzolamide/Pf [Brimonidine 0.15%-Dorzolam 2%] 10 ml OP DAILY Insulin Glargine,Hum.rec.anlog [Tonadeen Solostar] 300 unit SQ WEEKLY 08/16/19 Semaglutide [Ozempic] 0.25 mg SQ DAILY 08/16/19 COPD: No Diabetes: Yes HTN: Yes - Immunization History Immunization Up to Date: No - Psycho Social/Smoking Cessation Hx Smoking History: Never smoked Have you smoked in the past 12 months: No Information on smoking cessation initiated: No Hx Alcohol Use: No Drug/Substance Use Hx: No Substance Use Type: None Hx Substance Use Treatment: No *Physical Exam - Vital Signs Last Vital Signs Temp Pulse Resp BP Pulse Ox 97.6 F 123 H 19 137/82 100 08/16/19 18:13 08/16/19 18:13 08/16/19 18:13 08/16/19 18:13 08/16/19 18:13 - Physical Exam 08/17/19 02:41 Gen: well-developed, well-nourished, NAD Neuro: AAOX4, CN II-XII intact, FTN intact, EOMI, PERRLA, 5/5 strength, SILT HEENT: atraumatic, normocephalic, dry mucous membranes Neck: trachea midline, supple CV: tachycardic, regular rhythm, no murmurs, rubs, or gallops Pulm: CTA b/l, no wheezing Abd: soft, non-distended, non-tender Rectal: dried blood around anus, no apparent hemorrhoids, teresita red blood on exam MSK: full ROM, intact pulses Extr: no edema, no deformities Skin: warm, dry ED Treatment Course - LABORATORY CBC & Chemistry Diagram: 08/16/19 22:50 08/16/19 18:30 - ADDITIONAL ORDERS Additional order review: Laboratory Results 08/16/19 08/16/19 18:30 18:30 Sodium 138 Potassium 4.2 Chloride 104 Carbon Dioxide 24 Anion Gap 10 BUN 12.3 Creatinine 1.3 Est GFR (CKD-EPI)AfAm 63.18 Est GFR (CKD-EPI)NonAf 54.51 Random Glucose 273 H Calcium 8.8 Total Bilirubin 0.6 AST 26 ALT 29 Alkaline Phosphatase 89 Total Protein 7.0 Albumin 4.0 Blood Type O NEGATIVE Antibody Screen Negative 08/16/19 18:30 RBC 5.02 MCV 81.3 MCHC 33.3 RDW 17.6 H MPV 7.3 L Neutrophils % 74.6 D Lymphocytes % 18.8 D Monocytes % 6.1 Eosinophils % 0.1 D Basophils % 0.4 Medical Decision Making - Medical Decision Making 08/16/19 20:48 Concern for acute GI bleed. Potential etiologies include PUD, diverticulosis, hemorrhoids. - CBC, CMP - EKG - PT/INR, PTT - heme occult - 1L LR Initial Hgb 13.6, however patient with dried blood around the anus and bright red stool on heme occult. EKG sinus tachycardia at 113 bpm. Will get repeat CBC to track change. 08/17/19 22:30 Repeat Hgb 12.5. Heme occult with trace blood. Patient with another bloody bowel movement. Unable to contact urologist to clarify what procedure was performed. Will admit. Discharge - Discharge Information Problems reviewed: Yes Clinical Impression/Diagnosis: Rectal bleeding Condition: Fair - Follow up/Referral - Patient Discharge Instructions - Post Discharge Activity
[2019-08-16] MEDS ORDERED: LACTATED RINGERS SOLUTION 1,000 ML/1,000 ML INFUS.BAG IV STA (19:38)
--- NOTE | 2019-08-16 20:42 | PDOC ---
Documentation entered by Alexandro Matthew SCRIBE, acting as scribe for Jennie Begum DO. Jennie Begum DO: This documentation has been prepared by the Vipul childers Xhesika, SCRIBE, under my direction and personally reviewed by me in its entirety. I confirm that the documentation accurately reflects all work, treatment, procedures, and medical decision making performed by me. Attending Attestation - Resident Resident Name: [email or web address] - ED Attending Attestation I have performed the following: I have examined & evaluated the patient, The case was reviewed & discussed with the resident, I agree w/resident's findings & plan, Exceptions are as noted - HPI HPI: 08/16/19 20:13 The patient is a 74 year old male with a significant PMH of IDDM, HTN, HLD and enlarged prostate who presents to the emergency department for rectal bleeding. Patient states he had a procedure with his urologist Dr. Celeste (does not know the name of the procedure) today and since then pt endorsed 4 bowel movements with streaks of blood/ clots and associated weakness. The patient denies chest pain, shortness of breath, headache and dizziness. Denies fever, chills, cough, nausea, vomiting. Denies dysuria, frequency, urgency and hematuria. Allergies: NKDA PCP: Dr. Noonan Urologist: Dr. Elaina Thapa - Physicial Exam PE: 08/16/19 20:32 GENERAL: Awake, alert, and fully oriented, in no acute distress LUNGS: Breath sounds equal, clear to auscultation bilaterally. No wheezes, and no crackles HEART: +tachy. Normal S1 and S2, no murmurs, rubs or gallops ABDOMEN: Soft, nontender, normoactive bowel sounds. No guarding, no rebound. No masses EXTREMITIES: Normal range of motion, no edema. No clubbing or cyanosis. No cords, erythema, or tenderness NEUROLOGICAL: Cranial nerves II through XII grossly intact. SKIN: Warm, Dry, normal turgor, no rashes or lesions noted. - Medical Decision Making 08/16/19 20:39 I, Dr. Jennie Begum DO, attest that this document has been prepared under my direction and personally reviewed by me in its entirety. I further attest, that it accurately reflects all work, treatment, procedures and medical decision -making performed by me. a/p: 74yo male who had a rectal procedure for his prostate today in the office with Dr. Celeste and has had 6 episodes of rectal bleeding since the procedure -feels generally weak -pt arrives tachy -labs sent from [facility] reviewed - hgb 13 however, BRBPR on exam, will monitor and repeat hgb will also discuss with Dr. Joni Thapa -pt follows with a GI specialist - has had 2 colonoscopy in the past 08/16/19 23:12 hgb down to 12 still stable multiple calls placed to Dr. Angeles without a call back 08/16/19 23:35 case discussed with BRITTNY who accepts pt to service Discharge - Discharge Information Problems reviewed: Yes Clinical Impression/Diagnosis: Rectal bleeding Condition: Fair - Admission Yes - Follow up/Referral Referrals: Mikie Clement MD [Primary Care Provider] - - Patient Discharge Instructions - Post Discharge Activity Heart Score/ECG Review - ECG Intrepretation Comment:: 08/16/19 20:59 sinus tach at 113, nl axis, nl interval, no acute st/t wave findings
[2019-08-16 20:56] LABS: INR 1.41 (0.83-1.09); PROTHROMBIN TIME (PATIENT) 16.7 SEC (9.7-13.0)
[2019-08-16 20:59] LABS: ACTIVATED PTT 25.1 SECONDS (25.2-36.5)
[2019-08-16 22:56] LABS: HEMOGLOBIN 12.5 GM/dL (11.7-16.9); MCH 27.2 pg (25.7-33.7); MCHC 33.7 g/dl (32.0-35.9)
[2019-08-16 23:01] LABS: HEMATOCRIT 37.1 % (35.4-49); MEAN CELL VOLUME 80.7 fl (80-96); MEAN PLT VOLUME 6.9 fl (7.5-11.1); PLATELET COUNT 158 K/MM3 (134-434); RDW 17.6 % (11.9-15.9)
--- NOTE | 2019-08-16 23:23 | PN ---
Teaching Attending Note Name of Resident: Arturo Franks ATTENDING PHYSICIAN STATEMENT I saw and evaluated the patient. I reviewed the resident's note and discussed the case with the resident. I agree with the resident's findings and plan as documented. SUBJECTIVE: Patient is a 74 year old man with a PMH of Insulin-treated DM, HTN, HLD and BPH who presents to the ER for rectal bleeding. Patient states he had a procedure with his urologist Dr. Celeste (does not know the name of the procedure) today and since then has had 4 bowel movements with streaks of blood/clots and associated weakness. Has about 6 loose BMs. Patient denies chest pain, shortness of breath, headache, dizziness, fever, chills, cough, nausea, vomiting , dysuria, frequency, urgency and hematuria. Denies tobacco, alcohol or illicit drug use. No recent travels or sick contact. OBJECTIVE: Alert Vital Signs Period Temp Pulse Resp BP Sys/Balbuena Pulse Ox Last 24 Hr 97.6 F 104-123 19-20 108-137/74-82 99-100 HEENT: No Jaundice, eye redness or discharge, PERRLA, EOMI. Normocephalic, atraumatic. External ears are normal and hearing is grossly intact. No nasal discharge. Neck: Supple, nontender. No palpable adenopathy or thyromegaly. No JVD Chest: Good effort. Clear to auscultation and percussion. Heart: Regular. No S3, rub or murmur Abdomen: Not distended, soft, nontender and no HSM. No rebound or guarding. Normal bowel sounds. Ext: Peripheral pulses intact. No leg edema. Skin: Warm and dry. No petechiae, rash or ecchymosis. Neuro: Alert. Oriented x3. CN 2-12 grossly intact. Sensation grossly intact in all four extremities and DTR are symmetric. Psych: Appropriate mood and affect. Good insight. Home Medications Medication Instructions Recorded Canagliflozin [Invokana] 300 mg PO DAILY 11/12/16 Colesevelam HCl [Welchol (Nf)] 3.75 mg PO DAILY 11/12/16 Metformin HCl [Glucophage] 1,000 mg PO BID 11/12/16 Exenatide [Byetta] 10 mcg SQ DAILY 01/20/18 Simvastatin 40 mg PO DAILY 01/20/18 Brimonidine/Dorzolamide/Pf 10 ml OP DAILY 08/16/19 [Brimonidine 0.15%-Dorzolam 2%] Insulin Glargine,Hum.rec.anlog 300 unit SQ WEEKLY 08/16/19 [Tounupur Nuriseddie] Semaglutide [Ozempic] 0.25 mg SQ DAILY 08/16/19 Abnormal Lab Results 08/16/19 08/16/19 08/16/19 18:30 18:30 20:30 RDW 17.6 H MPV 7.3 L Nucleated RBC % 1 H PT with INR 16.70 H INR 1.41 H PTT (Actin FS) 25.1 L Random Glucose 273 H 08/16/19 22:50 RDW 17.6 H MPV 6.9 L Nucleated RBC % PT with INR INR PTT (Actin FS) Random Glucose ASSESSMENT AND PLAN: 1. Rectal bleeding - Patient is unsure, but likely had a prostate biopsy and the loose BMs may be due to the bowel prep he had. Hematocrit is stable bu his EKG shows sinus tachycardia with no significant ST-T wave changes. Will monitor hematocrit q 6 hours, get urinalysis and hydrate him. During the day, will get more details about the procedure he had from his urologist. Will continue comprehensive care for all of patients comorbid conditions. 2. Uncontrolled DM For now, we will hold the home diabetes drugs and implement sliding scale insulin regimen. Provide comprehensive diabetes care with patient teaching and counseling about the importance of adherence to prescribed diabetes regimen, euglycemia, eye care and foot care. 3. Obesity Counseled on the risks associated with obesity. Will provide patient all the necessary assistance, counseling and positive reinforcement to facilitate weight loss. Consult routing clerk. 4. Hypertension - Restart suitable outpatient antihypertensive drugs when clinically appropriate. Revise regimen to ensure [id number] excellent BP control and auto travel counselor patient on the injurious effects of uncontrolled hypertension. Nonpharmacologic measures to control hypertension like weight loss , salt restriction and exercise discussed. Importance of adherence to treatment regimen and attainment of normotension emphasized. 5. DVT prophylaxis - SCD 6. Advance directives - Full code
--- NOTE | 2019-08-16 23:36 | HP ---
CHIEF COMPLAINT: Bloody BM PCP: Dr. Lombardo HISTORY OF PRESENT ILLNESS: 74 y/o male PMH HTN, HLD, insulin treated DM, and enlarged prostate c/o x6 bloody BM s/p procedure with Dr. Omalley today 16 Aug 2019. He is not sure what procedure was done but description is consistent with prostate biopsy. He states that after the procedure he went home and not BRB IA and experienced generalized weakness. He does not have hemorrhoids, this has never happened before, and there was no mucous. He denies recent wt loss, night sweats and FNV , chills and constipation. He hash had no sick contacts, recent illness or recent travel. His last colonoscopy was in 2017 and was NL. He saw both arts and crafts instructor and optho in last year. He denies NSAID use, CP, SOB, DIANE, and dizziness, Recent Travel: denies PAST MEDICAL HISTORY: as above PAST SURGICAL HISTORY: denies Social History: Smoking: denies Alcohol: social Drugs: denies Allergies: No Known Allergies Allergy (Verified 08/16/19 18:15) HOME MEDICATIONS: Medication Instructions Recorded Canagliflozin [Invokana] 300 mg PO DAILY 11/12/16 Colesevelam HCl [Welchol (Nf)] 3.75 mg PO DAILY 11/12/16 Metformin HCl [Glucophage] 1,000 mg PO BID 11/12/16 Exenatide [Byetta] 10 mcg SQ DAILY 01/20/18 Simvastatin 40 mg PO DAILY 01/20/18 Brimonidine/Dorzolamide/Pf 10 ml OP DAILY 08/16/19 [Brimonidine 0.15%-Dorzolam 2%] Insulin Glargine,Hum.rec.anlog 300 unit SQ WEEKLY 08/16/19 [Katerina Infante] Semaglutide [Ozempic] 0.25 mg SQ DAILY 08/16/19 REVIEW OF SYSTEMS CONSTITUTIONAL: Absent: fever, chills, diaphoresis, generalized weakness, malaise, loss of appetite, weight change HEENT: Absent: rhinorrhea, nasal congestion, throat pain, throat swelling, difficulty swallowing, mouth swelling, ear pain, eye pain, visual changes CARDIOVASCULAR: Absent: chest pain, syncope, palpitations, irregular heart rate, lightheadedness , peripheral edema RESPIRATORY: Absent: cough, shortness of breath, dyspnea with exertion, orthopnea, wheezing, stridor, hemoptysis GASTROINTESTINAL: Absent: abdominal pain, abdominal distension, nausea, vomiting, diarrhea, constipation, melena, hematochezia GENITOURINARY: Absent: dysuria, frequency, urgency, hesitancy, hematuria, flank pain, genital pain MUSCULOSKELETAL: Absent: myalgia, arthralgia, joint swelling, back pain, neck pain SKIN: Absent: rash, itching, pallor HEMATOLOGIC/IMMUNOLOGIC: Absent: easy bleeding, easy bruising, lymphadenopathy, frequent infections ENDOCRINE: Absent: unexplained weight gain, unexplained weight loss, heat intolerance, cold intolerance NEUROLOGIC: Absent: headache, focal weakness or paresthesias, dizziness, unsteady gait, seizure, mental status changes, bladder or bowel incontinence PSYCHIATRIC: Absent: anxiety, depression, suicidal or homicidal ideation, hallucinations. PHYSICAL EXAMINATION Vital Signs - 24 hr 08/16/19 08/16/19 18:13 20:32 Temperature 97.6 F Pulse Rate 123 H Pulse Rate [ 104 H Left Radial] Respiratory 19 20 Rate Blood Pressure 137/82 Blood Pressure 108/74 [Right Arm] O2 Sat by Pulse 100 99 Oximetry (%) Orthostatic POSTIVE GENERAL: AOx3, in no acute distress. HEAD: NCAT EYES: SHILA, EOMI, conjunctiva clear. ENT: Ears normal, nares patent, oropharynx clear without exudates. Moist mucous membranes. NECK: Normal range of motion, supple without lymphadenopathy, JVD, or masses. LUNGS: CTAB. No wheezes, and no crackles. No accessory muscle use. HEART: Tachy to 112, RR s1 s2 ABDOMEN: Soft, BS present in all 4 quadrants, non-distended, no JVD. EYAL: gross dried blood at glut cleft and anus, good tone, firm prostate, no stool in vault , teresita dried blood on glove MUSCULOSKELETAL: No bony deformities or tenderness. No CVA tenderness. UPPER EXTREMITIES: 2+ pulses, warm, well-perfused. No cyanosis. No clubbing. No peripheral edema. LOWER EXTREMITIES: 2+ pulses, warm, well-perfused. No calf tenderness. No peripheral edema. NEUROLOGICAL: No focal deficits. Cranial nerves II-XII intact. Normal speech. Gait not appreciated. PSYCHIATRIC: Cooperative. Good eye contact. Appropriate mood and affect. SKIN: Warm, dry, normal turgor, no rashes or lesions noted, normal capillary refill. Laboratory Results - last 24 hr 08/16/19 08/16/19 08/16/19 18:30 18:30 18:30 WBC 5.9 RBC 5.02 Hgb 13.6 Hct 40.8 MCV 81.3 MCH 27.1 MCHC 33.3 RDW 17.6 H Plt Count 192 D MPV 7.3 L Absolute Neuts (auto) 4.4 Neutrophils % 74.6 D Lymphocytes % 18.8 D Monocytes % 6.1 Eosinophils % 0.1 D Basophils % 0.4 Nucleated RBC % 1 H PT with INR INR PTT (Actin FS) Sodium 138 Potassium 4.2 Chloride 104 Carbon Dioxide 24 Anion Gap 10 BUN 12.3 Creatinine 1.3 Est GFR (CKD-EPI)AfAm 63.18 Est GFR (CKD-EPI)NonAf 54.51 Random Glucose 273 H Calcium 8.8 Total Bilirubin 0.6 AST 26 ALT 29 Alkaline Phosphatase 89 Total Protein 7.0 Albumin 4.0 Stool Occult Blood Blood Type O NEGATIVE Antibody Screen Negative 08/16/19 08/16/19 08/16/19 19:55 20:30 22:50 WBC 7.0 RBC 4.60 Hgb 12.5 Hct 37.1 MCV 80.7 MCH 27.2 MCHC 33.7 RDW 17.6 H Plt Count 158 MPV 6.9 L Absolute Neuts (auto) 5.1 Neutrophils % Cap Inspector Lymphocytes % Cap Inspector Monocytes % Cap Inspector Eosinophils % Cap Inspector Basophils % Cap Inspector Nucleated RBC % 0 PT with INR 16.70 H INR 1.41 H PTT (Actin FS) 25.1 L Sodium Potassium Chloride Carbon Dioxide Anion Gap BUN Creatinine Est GFR (CKD-EPI)AfAm Est GFR (CKD-EPI)NonAf Random Glucose Calcium Total Bilirubin AST ALT Alkaline Phosphatase Total Protein Albumin Stool Occult Blood Trace Blood Type Antibody Screen ASSESSMENT/PLAN: 74 y/o male PMH HTN, HLD, insulin treated DM, and enlarged prostate c/o x6 bloody BM. Multiple BM consistent with bowel prep. No obvious bleeding outside of that from procedure but low h/h should be trended for possible bleed. # Poss GI bleed - ML 2/2 procedure - IVF - UA - Repeat CBC # DM - Hold home regimen - ISS ACHS # HTN - Cont. curent home regimen # HLD - Cont. curent home regimen #F/E/N - NS slowly - Cont. to monitor - Low sodium DM diet # DVT prophylaxis - SCD # Disposition - Admit to med/surg Arturo Franks MD Visit type - Emergency Visit Emergency Visit: Yes ED Registration Date: 08/17/19 Care time: The patient presented to the Emergency Department on the above date and was hospitalized for further evaluation of their emergent condition. - New Patient This patient is new to me today: Yes Date on this admission: 08/18/19 - Critical Care Critical Care patient: No ATTENDING PHYSICIAN STATEMENT I saw and evaluated the patient. I reviewed the resident's note and discussed the case with the resident. I agree with the resident's findings and plan as documented. SUBJECTIVE: OBJECTIVE: ASSESSMENT AND PLAN:
[2019-08-17] MEDS ORDERED: SODIUM CHLORIDE 1,000 ML IV SCH (01:15)
[2019-08-17 07:10] LABS: HEMATOCRIT 36.5 % (35.4-49); HEMOGLOBIN 12.1 GM/dL (11.7-16.9); MCH 27.1 pg (25.7-33.7); MCHC 33.3 g/dl (32.0-35.9); MEAN CELL VOLUME 81.4 fl (80-96); PLATELET COUNT 144 K/MM3 (134-434); RBC 4.48 M/mm3 (4.00-5.60); RDW 18.4 % (11.9-15.9); WHITE BLOOD COUNT 5.3 K/mm3 (4.0-10.0)
[2019-08-17] MEDS: INSULIN SLIDING SCALE (NOVOLOG) 1 VIAL SQ SCH ×3 (07:14→17:10)
[2019-08-17 07:33] LABS: ALBUMIN 3.4 g/dl (3.4-5.0); BILIRUBIN,TOTAL 0.6 mg/dL (0.2-1); BLOOD UREA NITROGEN 13.3 mg/dL (7-18); CALCIUM 8.6 mg/dL (8.5-10.1); CREATININE 1.1 mg/dL (0.55-1.3); MAGNESIUM 2.3 mg/dL (1.8-2.4); PHOSPHOROUS 3.3 mg/dL (2.5-4.9); POTASSIUM 4.4 mmol/L (3.5-5.1); TOT PROT 6.3 g/dl (6.4-8.2)
[2019-08-17] MEDS ORDERED: COLESEVELAM HCL PO SCH (10:00)
[2019-08-17] MEDS ORDERED: PATIENT'S OWN MEDICATION (NON-FORMULARY) (Brimonidine/Dorzolamide/Pf [Brimonidine 0.15%-Do OP SCH (10:00)
[2019-08-17] MEDS ORDERED: DORZOLAMIDE 2% HCL OPHTHALMIC SOLUTION 10 ML BOTTLE OU SCH (10:00)
[2019-08-17] MEDS ORDERED: PATIENT'S OWN MEDICATION (NON-FORMULARY) (Simvastatin [Simvastatin] 40 MG) PO SCH (10:00)
[2019-08-17] MEDS ORDERED: BRIMONIDINE TARTRATE 0.2% OPHTHALMIC 5 ML BOTTLE OU SCH (10:00)
--- NOTE | 2019-08-17 10:43 | EKG ---
Test Reason : Blood Pressure : / mmHG Vent. Rate : 113 BPM Atrial Rate : 113 BPM P-R Int : 128 ms QRS Dur : 068 ms QT Int : 314 ms P-R-T Axes : 051 024 043 degrees QTc Int : 430 ms POOR DATA QUALITY, INTERPRETATION MAY BE ADVERSELY AFFECTED SINUS TACHYCARDIA OTHERWISE NORMAL ECG WHEN COMPARED WITH ECG OF 12-NOV-2016 15:13, NO SIGNIFICANT CHANGE WAS FOUND Confirmed by MAURO FAY, KARLOS ([id number]) on 08/17/2019 10:42:35 AM Referred By: Confirmed By:KARLOS WADE MD
--- NOTE | 2019-08-17 12:47 | PN ---
Teaching Attending Note Name of Resident: Jelani Schmidt ATTENDING PHYSICIAN STATEMENT I saw and evaluated the patient. I reviewed the resident's note and discussed the case with the resident. I agree with the resident's findings and plan as documented. SUBJECTIVE: Patient is comfortable with no acute distress, no further bleed. at bedside. OBJECTIVE: Vital Signs Temperature 98.0 F 08/17/19 11:11 Pulse Rate 82 08/17/19 11:11 Respiratory Rate 18 08/17/19 11:11 Blood Pressure 132/73 08/17/19 11:11 O2 Sat by Pulse Oximetry (%) 99 08/17/19 11:11 GENERAL: The patient is awake, alert, and fully oriented, in no acute distress. HEAD: Normal with no signs of trauma. EYES: PERRL, extraocular movements intact, sclera anicteric, conjunctiva clear. ENT: Ears normal, oropharynx clear without exudates, moist mucous membranes. NECK: Trachea midline, full range of motion, supple. LUNGS: Breath sounds equal, clear to auscultation bilaterally, no wheezes, no crackles, no accessory muscle use. HEART: Regular rate and rhythm, S1, S2 without murmur, rub or gallop. ABDOMEN: Soft, nontender, nondistended, normoactive bowel sounds, no guarding, no rebound, no hepatosplenomegaly, no masses. EXTREMITIES: 2+ pulses, warm, well-perfused, no edema. NEUROLOGICAL: Cranial nerves II through XII grossly intact. Normal speech, gait not observed. PSYCH: Normal mood, normal affect. SKIN: Warm, dry, normal turgor, no rashes or lesions noted WBC 5.3 K/mm3 (4.0-10.0) 08/17/19 06:40 RBC 4.48 M/mm3 (4.00-5.60) 08/17/19 06:40 Hgb 12.1 GM/dL (11.7-16.9) 08/17/19 06:40 Hct 36.5 % (35.4-49) 08/17/19 06:40 MCV 81.4 fl (80-96) 08/17/19 06:40 MCHC 33.3 g/dl (32.0-35.9) 08/17/19 06:40 RDW 18.4 % (11.9-15.9) H 08/17/19 06:40 Plt Count 144 K/MM3 (134-434) 08/17/19 06:40 MPV 7.0 fl (7.5-11.1) L 08/17/19 06:40 CMP Sodium 141 mmol/L (136-145) 08/17/19 06:40 Potassium 4.4 mmol/L (3.5-5.1) 08/17/19 06:40 Chloride 107 mmol/L (98-107) 08/17/19 06:40 Carbon Dioxide 29 mmol/L (21-32) 08/17/19 06:40 Anion Gap 6 MMOL/L (8-16) L 08/17/19 06:40 BUN 13.3 mg/dL (7-18) 08/17/19 06:40 Creatinine 1.1 mg/dL (0.55-1.3) 08/17/19 06:40 Random Glucose 115 mg/dL (74-106) H 08/17/19 06:40 Calcium 8.6 mg/dL (8.5-10.1) 08/17/19 06:40 Total Bilirubin 0.6 mg/dL (0.2-1) 08/17/19 06:40 AST 23 U/L (15-37) 08/17/19 06:40 ALT 23 U/L (13-61) 08/17/19 06:40 Alkaline Phosphatase 72 U/L (45-117) 08/17/19 06:40 Total Protein 6.3 g/dl (6.4-8.2) L 08/17/19 06:40 Albumin 3.4 g/dl (3.4-5.0) 08/17/19 06:40 Current Medications Generic Name Dose Route Start Last Admin Trade Name Freq PRN Reason Stop Dose Admin Atorvastatin Calcium 20 mg 08/17/19 22:00 Lipitor - PO HS DEBBIE Brimonidine Tartrate 1 drop 08/17/19 10:00 08/17/19 12:37 Alphagan 0.2% - OU 1 drop BID DEBBIE Administration Dorzolamide HCl 1 drop 08/17/19 10:00 08/17/19 12:37 Trusopt 2% OU 1 drop BID DEBBIE Administration Sodium Chloride 1,000 mls @ 50 mls/hr 08/17/19 01:15 08/17/19 04:07 Normal Saline - IV 08/18/19 01:09 50 mls/hr ASDIR DEBBIE Administration Insulin Aspart 1 vial 08/17/19 07:00 08/17/19 12:38 Novolog Vial Sliding Scale - SQ Not Given TIDAC [facility] Protocol Non-Formulary Medication 3.75 mg 08/17/19 10:00 Colesevelam Hcl [Welchol (Nf)] PO DAILY [facility] Home Medications Medication Instructions Recorded Canagliflozin [Invokana] 300 mg PO DAILY 11/12/16 Colesevelam HCl [Welchol (Nf)] 3.75 mg PO DAILY 11/12/16 Metformin HCl [Glucophage] 1,000 mg PO BID 11/12/16 Exenatide [Byetta] 10 mcg SQ DAILY 01/20/18 Simvastatin 40 mg PO DAILY 01/20/18 Brimonidine/Dorzolamide/Pf 10 ml OP DAILY 08/16/19 [Brimonidine 0.15%-Dorzolam 2%] Insulin Glargine,Hum.rec.anlog 300 unit SQ WEEKLY 08/16/19 [Tounupur [place]] Semaglutide [Ozempic] 0.25 mg SQ DAILY 08/16/19 ASSESSMENT AND PLAN: Patient is a 74 yom with PMHx HTN, HLD, insulin treated DM, and enlarged prostate presented with bloody stool and was found to have hematuria s/p prostate bx by Dr. Acharya. #Hematuria improved, no further bleed noted. also discussed with dr. Diaz , patient was explained that after the procedure can bleed from the site,repeat H/ H is stable . will discharge the patient home. with follow up with in 2 weeks if not sooner. # DM continue home meds # HTN continue current home meds # HLD cont. current home regimen dc patient home
--- NOTE | 2019-08-17 13:20 | PN ---
Physical Exam: SUBJECTIVE: Patient seen and examined 74 y/o M, pmh of HTN, HLD, insulin treated DM, and enlarged prostate is admitted s/p prostate bx 08/[address] Linares is admitted for recurrent rectal bleed. Currently, pt is c/o of mild dizziness when he gets up. Pt reports bloody bowel movement today morning but much more improved than before. Pt is otherwise in good state of health and has no further c/o. Denies f/c/n/v/d/sob/ chest pain. OBJECTIVE: Vital Signs Period Temp Pulse Resp BP Sys/Balbuena Pulse Ox Last 24 Hr 97.6 F-98.0 F 82-123 16-20 108-141/73-86 97-100 GENERAL: The patient is awake, alert, and fully oriented, in no acute distress. EYES: PERRL, extraocular movements intact, sclera anicteric, ENT: oropharynx clear without exudates, moist mucous membranes. NECK: full range of motion, supple. LUNGS: Breath sounds equal, clear to auscultation bilaterally, no wheezes, no crackles HEART: Regular rate and rhythm, S1, S2 without murmur, rub or gallop. ABDOMEN: Soft, nontender, mildly distended but reports its normal for pt, normoactive bowel sounds, no guarding, EXTREMITIES: 2+ pulses, warm, well-perfused, no edema. NEUROLOGICAL: Cranial nerves II through XII grossly intact. Normal speech PSYCH: Normal mood, normal affect. SKIN: Warm, dry, normal turgor Laboratory Results - last 24 hr CBC,CMP WBC 5.3 K/mm3 (4.0-10.0) 08/17/19 06:40 Corrected WBC (auto) Cancelled 08/17/19 11:10 RBC 4.48 M/mm3 (4.00-5.60) 08/17/19 06:40 Hgb 12.1 GM/dL (11.7-16.9) 08/17/19 06:40 Hct 36.5 % (35.4-49) 08/17/19 06:40 MCV 81.4 fl (80-96) 08/17/19 06:40 MCH 27.1 pg (25.7-33.7) 08/17/19 06:40 MCHC 33.3 g/dl (32.0-35.9) 08/17/19 06:40 RDW 18.4 % (11.9-15.9) H 08/17/19 06:40 Plt Count 144 K/MM3 (134-434) 08/17/19 06:40 MPV 7.0 fl (7.5-11.1) L 08/17/19 06:40 Absolute Neuts (auto) 5.1 K/mm3 (1.5-8.0) 08/16/19 22:50 Neutrophils % 76.0 % (42.8-82.8) 08/16/19 22:50 Neutrophils % (Manual) 73.0 % (42.8-82.8) 08/16/19 22:50 Band Neutrophils % 3.0 % 08/16/19 22:50 Lymphocytes % 18.0 % (8-40) 08/16/19 22:50 Lymphocytes % (Manual) 18.0 % (8-40) 08/16/19 22:50 Monocytes % 6.0 % (3.8-10.2) 08/16/19 22:50 Monocytes % (Manual) 6 % (3.8-10.2) 08/16/19 22:50 Eosinophils % Block Mason 08/16/19 22:50 Basophils % Block Mason 08/16/19 22:50 Nucleated RBC % 0 % (0-0) 08/16/19 22:50 Platelet Estimate Cancelled 08/17/19 11:10 Platelet Comment Cancelled 08/17/19 11:10 Sodium 141 mmol/L (136-145) 08/17/19 06:40 Potassium 4.4 mmol/L (3.5-5.1) 08/17/19 06:40 Chloride 107 mmol/L (98-107) 08/17/19 06:40 Carbon Dioxide 29 mmol/L (21-32) 08/17/19 06:40 Anion Gap 6 MMOL/L (8-16) L 08/17/19 06:40 BUN 13.3 mg/dL (7-18) 08/17/19 06:40 Creatinine 1.1 mg/dL (0.55-1.3) 08/17/19 06:40 Est GFR (CKD-EPI)AfAm 77.32 08/17/19 06:40 Est GFR (CKD-EPI)NonAf 66.71 08/17/19 06:40 POC Glucometer 106 UNITS (80-120) 08/17/19 12:33 Random Glucose 115 mg/dL (74-106) H 08/17/19 06:40 Calcium 8.6 mg/dL (8.5-10.1) 08/17/19 06:40 Phosphorus 3.3 mg/dL (2.5-4.9) 08/17/19 06:40 Magnesium 2.3 mg/dL (1.8-2.4) 08/17/19 06:40 Total Bilirubin 0.6 mg/dL (0.2-1) 08/17/19 06:40 AST 23 U/L (15-37) 08/17/19 06:40 ALT 23 U/L (13-61) 08/17/19 06:40 Alkaline Phosphatase 72 U/L (45-117) 08/17/19 06:40 Total Protein 6.3 g/dl (6.4-8.2) L 08/17/19 06:40 Albumin 3.4 g/dl (3.4-5.0) 08/17/19 06:40 Active Medications Generic Name Dose Route Start Last Admin Trade Name Freq PRN Reason Stop Dose Admin Atorvastatin Calcium 20 mg 08/17/19 22:00 Lipitor - PO HS DEBBIE Brimonidine Tartrate 1 drop 08/17/19 10:00 08/17/19 12:37 Alphagan 0.2% - OU 1 drop BID DEBBIE Administration Dorzolamide HCl 1 drop 08/17/19 10:00 08/17/19 12:37 Trusopt 2% OU 1 drop BID DEBBIE Administration Sodium Chloride 1,000 mls @ 50 mls/hr 08/17/19 01:15 08/17/19 04:07 Normal Saline - IV 08/18/19 01:09 50 mls/hr ASDIR DEBBIE Administration Insulin Aspart 1 vial 08/17/19 07:00 08/17/19 12:38 Novolog Vial Sliding Scale - SQ Not Given TIDAC [facility] Protocol Non-Formulary Medication 3.75 mg 08/17/19 10:00 Colesevelam Hcl [Welchol (Nf)] PO DAILY DEBBIE ASSESSMENT/PLAN: 74 y/o M, pmh of HTN, HLD, insulin treated DM, and enlarged prostate is admitted s/p prostate bx 08/[address] Linares is admitted for recurrent rectal bleed #Rectal bleed s/p prostate bx likely 2/2 to procedure BM improved in blood content Heme occult shows trace blood Hb 12.1 today R/p CBC ordered- will f/u #HTN #HLD #DM ISS FEN Diabetic diet IVF at 1000 Visit type - Emergency Visit Emergency Visit: Yes ED Registration Date: 08/17/19 Care time: The patient presented to the Emergency Department on the above date and was hospitalized for further evaluation of their emergent condition. - New Patient This patient is new to me today: Yes Date on this admission: 08/20/19 - Critical Care Critical Care patient: No - Discharge Referral Referred to [facility] Med P.C.: No ATTENDING PHYSICIAN STATEMENT I saw and evaluated the patient. I reviewed the resident's note and discussed the case with the resident. I agree with the resident's findings and plan as documented. SUBJECTIVE: OBJECTIVE: ASSESSMENT AND PLAN:
[2019-08-17 13:24] LABS: HEMATOCRIT 37.8 % (35.4-49); HEMOGLOBIN 12.7 GM/dL (11.7-16.9); MCH 27.2 pg (25.7-33.7); MCHC 33.5 g/dl (32.0-35.9); MEAN CELL VOLUME 81.3 fl (80-96); PLATELET COUNT 155 K/MM3 (134-434); RBC 4.65 M/mm3 (4.00-5.60); RDW 18.4 % (11.9-15.9); WHITE BLOOD COUNT 5.2 K/mm3 (4.0-10.0)
[2019-08-17 15:31] VITALS: BP 109/61; PULSE 89; TEMP 98.4
--- NOTE | 2019-08-17 17:45 | DS ---
Physical Exam: SUBJECTIVE: Patient seen and examined 74 y/o M, pmh of HTN, HLD, insulin treated DM, and enlarged prostate is admitted s/p prostate bx 08/[address] Linares is admitted for recurrent rectal bleed. Currently, pt is c/o of mild dizziness when he gets up. Pt reports bloody bowel movement today morning but much more improved than before. Pt is otherwise in good state of health and has no further c/o. Denies f/c/n/v/d/sob/ chest pain. OBJECTIVE: Vital Signs Period Temp Pulse Resp BP Sys/[place]ena Pulse Ox Last 24 Hr 97.6 F-98.4 F 82-123 16-20 108-141/61-86 97-100 PHYSICAL EXAM GENERAL: The patient is awake, alert, and fully oriented, in no acute distress. EYES: PERRL, extraocular movements intact, sclera anicteric, ENT: oropharynx clear without exudates, moist mucous membranes. NECK: full range of motion, supple. LUNGS: Breath sounds equal, clear to auscultation bilaterally, no wheezes, no crackles HEART: Regular rate and rhythm, S1, S2 without murmur, rub or gallop. ABDOMEN: Soft, nontender, mildly distended but reports its normal for pt, normoactive bowel sounds, no guarding, EXTREMITIES: 2+ pulses, warm, well-perfused, no edema. NEUROLOGICAL: Cranial nerves II through XII grossly intact. Normal speech PSYCH: Normal mood, normal affect. SKIN: Warm, dry, normal turgor LABS Laboratory Results - last 24 hr CBC,CMP WBC 5.2 K/mm3 (4.0-10.0) 08/17/19 12:50 Corrected WBC (auto) Cancelled 08/17/19 11:10 RBC 4.65 M/mm3 (4.00-5.60) 08/17/19 12:50 Hgb 12.7 GM/dL (11.7-16.9) 08/17/19 12:50 Hct 37.8 % (35.4-49) 08/17/19 12:50 MCV 81.3 fl (80-96) 08/17/19 12:50 MCH 27.2 pg (25.7-33.7) 08/17/19 12:50 MCHC 33.5 g/dl (32.0-35.9) 08/17/19 12:50 RDW 18.4 % (11.9-15.9) H 08/17/19 12:50 Plt Count 155 K/MM3 (134-434) 08/17/19 12:50 MPV 7.0 fl (7.5-11.1) L 08/17/19 12:50 Absolute Neuts (auto) 5.1 K/mm3 (1.5-8.0) 08/16/19 22:50 Neutrophils % 76.0 % (42.8-82.8) 08/16/19 22:50 Neutrophils % (Manual) 73.0 % (42.8-82.8) 08/16/19 22:50 Band Neutrophils % 3.0 % 08/16/19 22:50 Lymphocytes % 18.0 % (8-40) 08/16/19 22:50 Lymphocytes % (Manual) 18.0 % (8-40) 08/16/19 22:50 Monocytes % 6.0 % (3.8-10.2) 08/16/19 22:50 Monocytes % (Manual) 6 % (3.8-10.2) 08/16/19 22:50 Eosinophils % [employer] 08/16/19 22:50 Basophils % [employer] 08/16/19 22:50 Nucleated RBC % 0 % (0-0) 08/16/19 22:50 Platelet Estimate Cancelled 08/17/19 11:10 Platelet Comment Cancelled 08/17/19 11:10 Sodium 141 mmol/L (136-145) 08/17/19 06:40 Potassium 4.4 mmol/L (3.5-5.1) 08/17/19 06:40 Chloride 107 mmol/L (98-107) 08/17/19 06:40 Carbon Dioxide 29 mmol/L (21-32) 08/17/19 06:40 Anion Gap 6 MMOL/L (8-16) L 08/17/19 06:40 BUN 13.3 mg/dL (7-18) 08/17/19 06:40 Creatinine 1.1 mg/dL (0.55-1.3) 08/17/19 06:40 Est GFR (CKD-EPI)AfAm 77.32 08/17/19 06:40 Est GFR (CKD-EPI)NonAf 66.71 08/17/19 06:40 POC Glucometer 150 UNITS (80-120) 08/17/19 17:07 Random Glucose 115 mg/dL (74-106) H 08/17/19 06:40 Calcium 8.6 mg/dL (8.5-10.1) 08/17/19 06:40 Phosphorus 3.3 mg/dL (2.5-4.9) 08/17/19 06:40 Magnesium 2.3 mg/dL (1.8-2.4) 08/17/19 06:40 Total Bilirubin 0.6 mg/dL (0.2-1) 08/17/19 06:40 AST 23 U/L (15-37) 08/17/19 06:40 ALT 23 U/L (13-61) 08/17/19 06:40 Alkaline Phosphatase 72 U/L (45-117) 08/17/19 06:40 Total Protein 6.3 g/dl (6.4-8.2) L 08/17/19 06:40 Albumin 3.4 g/dl (3.4-5.0) 08/17/19 06:40 Home Medications Current Medications Atorvastatin Calcium (Lipitor -) 20 mg PO HS [facility] Brimonidine Tartrate (Alphagan 0.2% -) 1 drop OU BID [facility] Last Admin: 08/17/19 12:37 Dose: 1 drop Dorzolamide HCl (Trusopt 2%) 1 drop OU BID [facility] Last Admin: 08/17/19 12:37 Dose: 1 drop Sodium Chloride (Normal Saline -) 1,000 mls @ 50 mls/hr IV ASDIR [facility] Stop: 08/18/19 01:09 Last Admin: 08/17/19 04:07 Dose: 50 mls/hr Insulin Aspart (Novolog Vial Sliding Scale -) 1 vial SQ TIDAC [facility]; Protocol Last Admin: 08/17/19 17:10 Dose: Not Given Non-Formulary Medication (Colesevelam Hcl [Welchol (Nf)]) 3.75 mg PO DAILY [facility] HOSPITAL COURSE: Date of Admission:08/17/19 74 y/o M, pmh of HTN, HLD, insulin treated DM, and enlarged prostate is admitted s/p prostate bx 08/[address] Linares is admitted for recurrent rectal bleed. Pt was seen at Dr. Joni Thapa's for a prostate biopsy procedure which was uneventful. However, later on pt began to develop multiple bloody bowel movements. He was admitted and we worked him up for a GI bleed. Within a few hours, his bowel movements began to return to normal color with less blood each time. Pt stated that his bowel movement are improving. CBC was normal for hg/ Hct. R/p CBC came back normal as well. Pt's symptoms could have been 2/2 to excess blood loss causing dizziness and fatigue. His SOBT was only positive for trace blood. EKG was nsr. Pt was given fluids and then later on a diet to eat. His symptoms improved and he was discharged home. EKG shows sinus tachycardia with no significant ST-T wave changes Date of Discharge: 08/17/19 Minutes to complete discharge: 35 Discharge Summary Problems reviewed: Yes Reason For Visit: RECTAL HEMORRHAGE Condition: Improved - Instructions Diet, Activity, Other Instructions: You were admitted to the hospital for bloody bowel movements after you had a Prostate biopsy done. While you were here, we evaluated you with blood work, lab work, tests including an EKG of your heart. We found that your bloody bowel movements were likely as a result of your prostate biopsy procedure. After a couple of bowel movements, your bloody bowel movement improved. Bloody bowel movements are common after prostate biopsy are done. You will need to complete your course of antibiotics, Levofloxacin prescribed to you by Dr. Omalley Please take all your medications as prescribed Please follow up with Dr. Omalley in 1 week for the results of your prostate biopsy Follow up with your primary care physician in 1 week Return to the emergency room, if you experience any worsening of your symptoms, worsening bloody bowel movements, nausea, vomiting, chest pain, shortness of breath or any other symptoms. Referrals: Alphonso Mcginnis [Other] - 2 Weeks Mikie Clement MD [Primary Care Provider] - 1 Week Disposition: HOME - Home Medications Comprehensive Discharge Medication List: Ambulatory Orders Canagliflozin [Invokana] 300 mg PO DAILY 11/12/16 Metformin HCl [Glucophage] 1,000 mg PO BID 11/12/16 Simvastatin 40 mg PO DAILY 01/20/18 Brimonidine/Dorzolamide/Pf [Brimonidine 0.15%-Dorzolam 2%] 10 ml OU BID Insulin Glargine,Hum.rec.anlog [Katerina Lawlerostchichi] 38 unit SQ HS 08/16/19 Semaglutide [Ozempic] 0.5 mg SQ WEEKLY 08/16/19 Ezetimibe [Zetia] 10 mg PO DAILY 08/17/19 Insulin Lispro [Humalog] 10 unit SQ TID 08/17/19 Levofloxacin [Levaquin] 1 tab PO DAILY 08/17/19 Tamsulosin HCl [Flomax] 0.4 mg PO DAILY 08/17/19 This patient is new to me today: Yes Date on this admission: 08/20/19 Emergency Visit: Yes ED Registration Date: 08/17/19 Care time: The patient presented to the Emergency Department on the above date and was hospitalized for further evaluation of their emergent condition. Critical Care patient: No - Discharge Referral Referred to [facility] No ATTENDING PHYSICIAN STATEMENT I saw and evaluated the patient. I reviewed the resident's note and discussed the case with the resident. I agree with the resident's findings and plan as documented. SUBJECTIVE: OBJECTIVE: ASSESSMENT AND PLAN:
[2019-08-17] MEDS ORDERED: ATORVASTATIN CA 20 MG TABLET (FP) PO SCH (22:00)
== END 2019-08-17 19:37 | disposition home or self-care (01) | DRG 920 ==
LOC: JER 18:10 → UNDOADMIN 23:35 → JERBED 23:35 → OBSVTOIN 08-17 01:06 → JERBED 08-17 10:31
PROVIDERS: ADMIT Internal Medicine; ATTEND Internal Medicine
DX: K91.841 Postprocedural hemorrhage of a digestive system organ or structure following other procedure (principal); K92.2 Gastrointestinal hemorrhage, unspecified; E11.9 Type 2 diabetes mellitus without complications; N40.0 Benign prostatic hyperplasia without lower urinary tract symptoms; E78.5 Hyperlipidemia, unspecified; I10 Essential (primary) hypertension; E66.9 Obesity, unspecified; Z68.30 Body mass index [BMI] 30.0-30.9, adult; R31.9 Hematuria, unspecified; Z79.4 Long term (current) use of insulin
CPT/HCPCS: 36415; 80053; 82272; 82962; 83735; 84100; 85025; 85027; 85610; 85730; 86850; 86900; 86901; 93005; 93010; 99285-25; G0378; J7030

== ENCOUNTER 2019-10-04 16:08 | Inpatient (IN) | payer OTHER ==
[2019-10-04] MEDS ORDERED: ACETAMINOPHEN 1000 MG/100 ML VIAL (NON FORMULARY) IVPB ONE (16:23)
--- NOTE | 2019-10-04 16:24 | PDOC ---
Rapid Medical Evaluation Time Seen by Provider: 10/04/19 16:18 Medical Evaluation: Allergies Allergy/AdvReac Type Severity Reaction Status Date / Time No Known Allergies Allergy Verified 10/04/19 16:17 10/04/19 16:18 Pt presents for generalized weakness for two days. Also admits to generalized body aches Exam: lungs CTAB, tachy Orders: labs, flu Pt to proceed to the ER for further evaluation Discharge Disposition - Diagnosis Weakness - Referrals - Patient Instructions - Post Discharge Activity
--- NOTE | 2019-10-04 16:39 | PDOC ---
Attending Attestation - Resident Resident Name: Issac Ramirez - ED Attending Attestation I have performed the following: I have examined & evaluated the patient, The case was reviewed & discussed with the resident, I agree w/resident's findings & plan, Exceptions are as noted Heart Score/ECG Review - ECG Intrepretation Comment:: 10/04/19 16:46 sinus tach at 120, nl axis, t wave flattening diffusely, no acute st changes
--- NOTE | 2019-10-04 16:39 | PDOC ---
History of Present Illness - General Chief Complaint: Cold Symptoms Stated Complaint: WEAKNESS Time Seen by Provider: 10/04/19 16:18 - History of Present Illness Initial Comments: The pt is a 74M w/ a history of HTN, HLD, DM, BPH who presents for evaluation of 2 days of fevers, cough, generalized weakness, and generalized myalgias. He denies any other associated symptoms. Denies chest pain, trouble breathing, abdominal pain, N/V/C/D, dysuria, hematuria, or changes in sensation 10/04/19 16:56 Past History - Past Medical History Allergies/Adverse Reactions: Allergies Allergy/AdvReac Type Severity Reaction Status Date / Time No Known Allergies Allergy Verified 10/04/19 16:17 Home Medications: Ambulatory Orders Canagliflozin [Invokana] 100 mg PO DAILY 11/12/16 Metformin HCl [Glucophage] 1,000 mg PO BID 11/12/16 Brimonidine/Dorzolamide/Pf [Brimonidine 0.15%-Dorzolam 2%] 1 drop OU BID Semaglutide [Ozempic] 2 mg SQ WEEKLY 08/16/19 Ezetimibe [Zetia] 10 mg PO DAILY 08/17/19 Insulin Lispro [Humalog] 12 unit SQ TID 08/17/19 Tamsulosin HCl [Flomax] 0.4 mg PO DAILY 08/17/19 Glipizide 10 mg PO BID 10/04/19 Latanoprost 0.005% Eye Drops [Xalatan 0.005% Eye Drops -] 1 drop AU HS 10/04/19 COPD: No Diabetes: Yes HTN: Yes - Immunization History Immunization Up to Date: No - Psycho Social/Smoking Cessation Hx Smoking History: Never smoked Have you smoked in the past 12 months: No Hx Alcohol Use: No Drug/Substance Use Hx: No Substance Use Type: None Hx Substance Use Treatment: No Review of Systems - Review of Systems Able to Perform ROS?: Yes Comments:: GENERAL/CONSTITUTIONAL: +fevers, generalized weakness, myalgias HEAD, EYES, EARS, NOSE AND THROAT: No change in vision. No change in hearing. No sore throat CARDIOVASCULAR: No chest pain or shortness of breath RESPIRATORY: +cough; Denies hemoptysis GASTROINTESTINAL: No nausea, vomiting, diarrhea or constipation GENITOURINARY: No dysuria, frequency, or change in urination MUSCULOSKELETAL: No joint or muscle swelling or pain. No neck or back pain SKIN: No rash NEUROLOGIC: No headache, vertigo, loss of consciousness, or change in strength/ sensation ENDOCRINE: No increased thirst. No abnormal weight change HEMATOLOGIC/LYMPHATIC: No anemia, easy bleeding, or history of blood clots ALLERGIC/IMMUNOLOGIC: No hives or skin allergy 10/04/19 16:38 Is the patient limited Mohawk proficient: No *Physical Exam - Vital Signs Last Vital Signs Temp Pulse Resp BP Pulse Ox 102.5 F H 127 H 18 139/83 98 10/04/19 16:17 10/04/19 16:17 10/04/19 16:17 10/04/19 16:17 10/04/19 16:17 - Physical Exam GENERAL: Awake, alert, and oriented to person/place/time HEAD: No signs of trauma, normoc ephalic, atraumatic EYES: PERRLA, EOMI, sclera anicteric, conjunctiva clear ENT: Hearing grossly normal, nares patent, oropharynx clear without exudates. Moist mucosa LUNGS: No distress, speaks in full sentences, clear to auscultation bilaterally HEART: Tachycardic rate with regular rhythm, normal S1 and S2, no murmurs appreciated, peripheral pulses normal and equal bilaterally ABDOMEN: Soft, nontender, normoactive bowel sounds. No guarding, no rebound EXTREMITIES: Normal inspection, Normal range of motion, no edema. No clubbing or cyanosis NEUROLOGICAL: Cranial nerves II through XII grossly intact. Normal speech, normal gait, no focal sensorimotor deficits SKIN: Warm, Dry 10/04/19 16:39 ED Treatment Course - LABORATORY CBC & Chemistry Diagram: 10/05/19 08:45 10/05/19 08:45 - RADIOLOGY Radiology Studies Ordered: Category Date Time Status CHEST X-RAY PORTABLE* [RAD] Stat Radiology 10/04/19 16:37 Ordered Medical Decision Making - Medical Decision Making The pt is a 74M w/ a history of HTN, HLD, DM, BPH who presents for evaluation of 2 days of fevers, cough, generalized weakness, and generalized myalgias. ED Course Sepsis labs sent ECG CXR Tylenol for fever 10/04/19 17:19 ECG w/ sinus tachycardia; HR 120; QTc 407; nonspecific TW abn, no PORFIRIO, no axis deviation; abn ecg UA w/ evidence of UTI, will treat with Ceftriaxone 1g IV once 10/04/19 17:23 No leukocytosis No anemia Lytes unremarkable Cr 1.7, elevated from 1.1, LIDIA noted LFTs unremarkable LA 2.5 Trop I neg IVF 10/04/19 17:48 Zofran 4mg IV once given for vomiting Flat and upright XR with non-obstructive bowel gas pattern Microblog sent at 1750, awaiting call back 10/04/19 18:36 Pt signed out to [facility] Admitting Discharge - Discharge Information Problems reviewed: Yes Clinical Impression/Diagnosis: Weakness, Myalgia Vomiting Qualifiers: Vomiting type: unspecified Vomiting Intractability: non-intractable Nausea presence: with nausea Qualified Code(s): R11.2 - Nausea with vomiting, unspecified UTI (urinary tract infection) Qualifiers: Urinary tract infection type: site unspecified Hematuria presence: with hematuria Qualified Code(s): N39.0 - Urinary tract infection, site not specified Sepsis Qualifiers: Sepsis type: sepsis due to unspecified organism Sepsis acute organ dysfunction status: unspecified Qualified Code(s): A41.9 - Sepsis, unspecified organism Condition: Good - Admission Yes - Follow up/Referral - Patient Discharge Instructions - Post Discharge Activity
[2019-10-04 17:12] LABS: BASO % 0.4 % (0-2.0); HEMATOCRIT 42.6 % (35.4-49); LYMPH % 7.9 % (8-40); MCH 26.6 pg (25.7-33.7); MCHC 32.9 g/dl (32.0-35.9); MEAN CELL VOLUME 80.7 fl (80-96); MEAN PLT VOLUME 7.2 fl (7.5-11.1); MONO % 7.8 % (3.8-10.2); NEUT % 83.9 % (42.8-82.8); PLATELET COUNT 126 K/MM3 (134-434); RBC 5.29 M/mm3 (4.00-5.60); RDW 19.7 % (11.9-15.9); WHITE BLOOD COUNT 7.9 K/mm3 (4.0-10.0)
[2019-10-04 17:13] LABS: VENOUS PH 7.49 (7.31-7.41); VENOUS PO2 59.4 mmHg (28-48)
[2019-10-04 17:19] LABS: EPI CELLS 1.7 /HPF (0-5/HPF); HYALINE CASTS 2 /lpf (0-8); URINE APPEARANCE CLOUDY; URINE BACTERIA 19.8 /hpf (NEGATIVE); URINE BILIRUBIN NEGATIVE (NEGATIVE); URINE COLOR YELLOW; URINE GLUCOSE (UA) 3+ (NEGATIVE); URINE KETONE TRACE (NEGATIVE); URINE LEUK ESTERASE NEGATIVE (NEGATIVE); URINE NITRITE POSITIVE (NEGATIVE); URINE PROTEIN 2+ (NEGATIVE); URINE RBC 2 /hpf (0-4); URINE UROBILINOGEN 0.2 mg/dL (0.2-1.0); URINE WBC 3 /hpf (0-5)
[2019-10-04] MEDS ORDERED: SODIUM CHLORIDE 0.9% 500 ML INFUS.BAG IV ONE ×2 (17:21→17:56)
[2019-10-04] MEDS ORDERED: CEFTRIAXONE 1,000 MG in DEXTROSE 5%-WATER - 50 ML IVPB ONE (17:24)
--- NOTE | 2019-10-04 17:25 | PDOC ---
Documentation entered by Alexandro Matthew SCRIBE, acting as scribe for Jennie Begum DO. Jennie Begum DO: This documentation has been prepared by the Vipul childers Xhesika, SCRIBE, under my direction and personally reviewed by me in its entirety. I confirm that the documentation accurately reflects all work, treatment, procedures, and medical decision making performed by me. Attending Attestation - Resident Resident Name: Issac Ramirez - ED Attending Attestation I have performed the following: I have examined & evaluated the patient, The case was reviewed & discussed with the resident, I agree w/resident's findings & plan, Exceptions are as noted - HPI HPI: 10/04/19 17:09 The patient is a 74 year old male with a significant PMH of HTN, HLD, DM, BPH who presents to the emergency department for 2 days of fever, cough, generalized weakness and generalized myalgia. Pt states he did not recieve his flu shot vaccine this year. The patient denies chest pain, shortness of breath, headache and dizziness. Denies chills, nausea, vomiting, diarrhea and constipation. Denies dysuria, frequency, urgency and hematuria. Allergies: NKDA - Physicial Exam PE: 10/04/19 17:50 GENERAL: Awake, alert, and fully oriented, + ill appearing. +warm to touch HEAD: No signs of trauma ENT: Auricles normal inspection, hearing grossly normal, nares patent. + actively vomiting bright yellow fluid. NECK: Normal ROM, supple, no lymphadenopathy, JVD, or masses LUNGS: Breath sounds equal, clear to auscultation bilaterally. No wheezes, and no crackles HEART: +tachy. normal S1 and S2, no murmurs, rubs or gallops ABDOMEN:+protuberant belly, Soft, nontender, normoactive bowel sounds. No guarding, no rebound. No masses EXTREMITIES: Normal range of motion, no edema. No clubbing or cyanosis. No cords, erythema, or tenderness NEUROLOGICAL: Cranial nerves II through XII grossly intact. SKIN: Warm, Dry, normal turgor, no rashes or lesions noted. - Medical Decision Making 10/04/19 18:01 a/p: 74yo male with fever x 2 days, body aches, generalized weakness -pt with active vomiting in the ER -pt febrile, tachy, ill appearing -labs, cultures, flu sent -pt c/o intermittent dysuria -pt denies abd pain -no cva ttp -protuberant abd -will order xray, hx of ngt in the past, will eval for obstruction -ivf, tylenol ordered -UA +nitrates, bacteria - will start abx -will monitor and reassess 10/04/19 18:06 flu neg cxr clear 10/04/19 18:07 pt with LIDIA trop neg 10/04/19 18:27 microblog sent to [facility] for admission for lidia, uti 10/04/19 18:50 resident discussed the case with [facility] who accepts pt to service Heart Score/ECG Review - ECG Intrepretation Comment:: 10/04/19 17:24 SINUS TACH AT 120, NL AXIS, NL INTERVAL, T WAVE FLATTENING DIFFUSELY, NO ACUTE ST SEGMENT CHANGES
[2019-10-04] MEDS ORDERED: ACETAMINOPHEN INJECTION 100 ML IVPB ONE (17:31)
[2019-10-04] MEDS ORDERED: CEFTRIAXONE 1 GM/50 ML BAG ONE (17:31)
[2019-10-04 17:39] LABS: INR 1.39 (0.83-1.09); PROTHROMBIN TIME (PATIENT) 16.4 SEC (9.7-13.0)
[2019-10-04] MEDS ORDERED: ONDANSETRON 4 MG/2 ML VIAL ONE (17:40)
[2019-10-04 17:41] LABS: ALBUMIN 3.8 g/dl (3.4-5.0); ALK PHOS 110 U/L (45-117); ANION GAP 12 MMOL/L (8-16); BILIRUBIN,TOTAL 0.8 mg/dL (0.2-1); CALCIUM 8.6 mg/dL (8.5-10.1); CHLORIDE 100 mmol/L (98-107); CO2 22 mmol/L (21-32); CREATININE 1.7 mg/dL (0.55-1.3); GLUCOSE,RANDOM 284 mg/dL (74-106); POTASSIUM 3.9 mmol/L (3.5-5.1); SGOT/AST 91 U/L (15-37); SGPT/ALT 54 U/L (13-61); SODIUM 134 mmol/L (136-145); TOT PROT 7.4 g/dl (6.4-8.2)
[2019-10-04] MEDS ORDERED: ONDANSETRON 4 MG/2 ML VIAL IVPUSH ONE (17:43)
[2019-10-04 18:42] LABS: YEAST RARE (NEGATIVE)
--- NOTE | 2019-10-04 18:54 | PN ---
Teaching Attending Note ATTENDING PHYSICIAN STATEMENT I saw and evaluated the patient. I reviewed the resident's note and discussed the case with the resident. I agree with the resident's findings and plan as documented. SUBJECTIVE: OBJECTIVE: ASSESSMENT AND PLAN:
[2019-10-04] MEDS ORDERED: PIPERACILLIN/TAZOB 3.375 GM 3.375 GM in DEXTROSE 5%-WATER - 50 ML IVPB ONE (19:41)
--- NOTE | 2019-10-04 20:00 | HP ---
CHIEF COMPLAINT: weakness and fever PCP: Dr. Lombardo HISTORY OF PRESENT ILLNESS: Esteban Cullen is a 74 year old male with a past medical history of DM, HTN, HLD , and BPH, and a recent TURP procedure [address] Gracia, who presents with a 2 day history of generalized weakness and fevers. Patient reports he has had decreased appetite, nausea, lightheadedness, and weakness which worsened yesterday. Also endorsed myalgias throughout. He also reports urinary frequency and some dysuria, but denies any hematuria and hesitancy. He had 2 episodes of emesis in the ED of yellow liquid, no bile or blood. Endorsed poor appetite yesterday but did have adequate PO fluid intake yesterday. Patient denies any chest pain, shortness of breath, cough, abdominal pain, constipation, diarrhea, headache, or other problems at this time. He received his flu shot and pneumonia shot. No recent sickness. No recent travel. 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 Allergies No Known Allergies Allergy (Verified 10/04/19 16:17) HOME MEDICATIONS: Home Medications Medication Instructions Recorded Canagliflozin [Invokana] 300 mg PO DAILY 11/12/16 Metformin HCl [Glucophage] 1,000 mg PO BID 11/12/16 Simvastatin 40 mg PO DAILY 01/20/18 Brimonidine/Dorzolamide/Pf 10 ml OU BID 08/16/19 [Brimonidine 0.15%-Dorzolam 2%] Insulin Glargine,Hum.rec.anlog 38 unit SQ HS 08/16/19 [Katerina Infante] Semaglutide [Ozempic] 0.5 mg SQ WEEKLY 08/16/19 Ezetimibe [Zetia] 10 mg PO DAILY 08/17/19 Insulin Lispro [Humalog] 10 unit SQ TID 08/17/19 Levofloxacin [Levaquin] 1 tab PO DAILY 08/17/19 Tamsulosin HCl [Flomax] 0.4 mg PO DAILY 08/17/19 REVIEW OF SYSTEMS CONSTITUTIONAL: fever, generalized weakness, loss of appetite Absent: chills, diaphoresis, malaise, weight change HEENT: Absent: rhinorrhea, nasal congestion, throat pain, throat swelling, difficulty swallowing, visual changes CARDIOVASCULAR: lightheadedness Absent: chest pain, syncope, palpitations, irregular heart rate, RESPIRATORY: Absent: cough, shortness of breath, dyspnea with exertion, orthopnea, wheezing GASTROINTESTINAL: nausea, vomiting Absent: abdominal pain, abdominal distension, diarrhea, constipation, melena, hematochezia GENITOURINARY: dysuria, frequency Absent: urgency, hesitancy, hematuria, flank pain, genital pain MUSCULOSKELETAL: myalgia Absent: arthralgia, joint swelling, back pain, neck pain SKIN: Absent: rash, itching, pallor HEMATOLOGIC/IMMUNOLOGIC: Absent: easy bleeding, easy bruising, lymphadenopathy, frequent infections ENDOCRINE: Absent: unexplained weight gain, unexplained weight loss, heat intolerance, cold intolerance NEUROLOGIC: Absent: headache, focal weakness or paresthesias, dizziness, unsteady gait, seizure, mental status changes, bladder or bowel incontinence PSYCHIATRIC: Absent: anxiety, depression, suicidal or homicidal ideation, hallucinations. PHYSICAL EXAMINATION Vital Signs - 24 hr 10/04/19 16:17 Temperature 102.5 F H Pulse Rate 127 H Respiratory 18 Rate Blood Pressure 139/83 O2 Sat by Pulse 98 Oximetry (%) GENERAL: Awake, alert, and fully oriented, in no acute distress. HEAD: Normal with no signs of trauma. EYES: Pupils equal, round and reactive to light, extraocular movements intact, sclera anicteric, conjunctiva clear. EARS, NOSE, THROAT: Oropharynx clear without exudates. Dry mucous membranes. NECK: Normal range of motion, supple without lymphadenopathy, JVD. LUNGS: Breath sounds equal, clear to auscultation bilaterally. No wheezes, and no crackles. No accessory muscle use. HEART: Tachycardic rate and regular rhythm, normal S1 and S2 without murmur, rub. ABDOMEN: Soft, nontender, sensation of pressure when palpated in suprapubic region, not distended, normoactive bowel sounds, no guarding, no rebound, no masses. MUSCULOSKELETAL: Normal range of motion at all joints. No bony deformities or tenderness. No CVA tenderness. UPPER EXTREMITIES: 2+ pulses, warm, well-perfused. No cyanosis. No clubbing. No peripheral edema. LOWER EXTREMITIES: 2+ pulses, warm, well-perfused. No calf tenderness. No peripheral edema. NEUROLOGICAL: Cranial nerves II-XII intact. 5/5 muscle strength bilaterally upper and lower extremities. PSYCHIATRIC: Cooperative. Good eye contact. Appropriate mood and affect. SKIN: Warm, dry, normal turgor, no rashes or lesions noted, normal capillary refill. Laboratory Results - last 24 hr 10/04/19 10/04/19 10/04/19 16:30 16:33 16:33 WBC 7.9 RBC 5.29 Hgb 14.0 Hct 42.6 MCV 80.7 MCH 26.6 MCHC 32.9 RDW 19.7 H Plt Count 126 L MPV 7.2 L Absolute Neuts (auto) 6.6 Neutrophils % 83.9 H Lymphocytes % 7.9 L D Monocytes % 7.8 Eosinophils % 0.0 D Basophils % 0.4 Nucleated RBC % 0 PT with INR INR PTT (Actin FS) VBG pH POC VBG pCO2 POC VBG pO2 VBG HCO3 VBG O2 Sat (Kota) VBG Base Excess Sodium Potassium Chloride Carbon Dioxide Anion Gap BUN Creatinine Est GFR (CKD-EPI)AfAm Est GFR (CKD-EPI)NonAf Random Glucose Lactic Acid Calcium Total Bilirubin AST ALT Alkaline Phosphatase Troponin I Total Protein Albumin Urine Color Yellow Urine Appearance Cloudy Urine pH 5.0 Ur Specific Dewar 1.022 Urine Protein 2+ H Urine Glucose (UA) 3+ H Urine Ketones Trace H Urine Blood 2+ H Urine Nitrite Positive H Urine Bilirubin Negative Urine Urobilinogen 0.2 Ur Leukocyte Esterase Negative Urine WBC (Auto) 3 Urine RBC (Auto) 2 Urine Casts (Auto) 2 U Epithel Cells (Auto) 1.7 Urine Bacteria (Auto) 19.8 Urine Yeast (Auto) Rare Influenza A (Rapid) Negative Influenza B (Rapid) Negative 10/04/19 10/04/19 10/04/19 16:33 16:33 16:33 WBC RBC Hgb Hct MCV MCH MCHC RDW Plt Count MPV Absolute Neuts (auto) Neutrophils % Lymphocytes % Monocytes % Eosinophils % Basophils % Nucleated RBC % PT with INR INR PTT (Actin FS) VBG pH 7.49 H POC VBG pCO2 30.0 L POC VBG pO2 59.4 H VBG HCO3 22.9 L VBG O2 Sat (Kota) 91.2 H VBG Base Excess 1.0 Sodium 134 L Potassium 3.9 Chloride 100 Carbon Dioxide 22 Anion Gap 12 BUN 20.0 H Creatinine 1.7 H Est GFR (CKD-EPI)AfAm 45.68 Est GFR (CKD-EPI)NonAf 39.41 Random Glucose 284 H Lactic Acid 2.5 H* Calcium 8.6 Total Bilirubin 0.8 AST 91 H ALT 54 Alkaline Phosphatase 110 Troponin I < 0.02 Total Protein 7.4 Albumin 3.8 Urine Color Urine Appearance Urine pH Ur Specific Dewar Urine Protein Urine Glucose (UA) Urine Ketones Urine Blood Urine Nitrite Urine Bilirubin Urine Urobilinogen Ur Leukocyte Esterase Urine WBC (Auto) Urine RBC (Auto) Urine Casts (Auto) U Epithel Cells (Auto) Urine Bacteria (Auto) Urine Yeast (Auto) Influenza A (Rapid) Influenza B (Rapid) 10/04/19 16:50 WBC RBC Hgb Hct MCV MCH MCHC RDW Plt Count MPV Absolute Neuts (auto) Neutrophils % Lymphocytes % Monocytes % Eosinophils % Basophils % Nucleated RBC % PT with INR 16.40 H INR 1.39 H PTT (Actin FS) 41.0 H VBG pH POC VBG pCO2 POC VBG pO2 VBG HCO3 VBG O2 Sat (Koat) VBG Base Excess Sodium Potassium Chloride Carbon Dioxide Anion Gap BUN Creatinine Est GFR (CKD-EPI)AfAm Est GFR (CKD-EPI)NonAf Random Glucose Lactic Acid Calcium Total Bilirubin AST ALT Alkaline Phosphatase Troponin I Total Protein Albumin Urine Color Urine Appearance Urine pH Ur Specific Dewar Urine Protein Urine Glucose (UA) Urine Ketones Urine Blood Urine Nitrite Urine Bilirubin Urine Urobilinogen Ur Leukocyte Esterase Urine WBC (Auto) Urine RBC (Auto) Urine Casts (Auto) U Epithel Cells (Auto) Urine Bacteria (Auto) Urine Yeast (Auto) Influenza A (Rapid) Influenza B (Rapid) EKG--> Sinus tachycardia, non-specific T wave changes, no ST segment changes, QTc 407 ASSESSMENT/PLAN: Esteban Cullen is a 74 year old male with a past medical history of DM, HTN, HLD , and BPH, and a recent TURP procedure admitted for sepsis secondary to UTI due to recent instrumentation. Sepsis secondary to UTI - recent instrumentation in the penis - Temp 102.5, HR 127, UA with positive nitrites, lots of glucose in urine predisposing to infection - elevated lactic acid on admission, trended down to 1.8 - given ceftriaxone in ED - continue Zosyn 3.375 q6h - continue LR at 100cc/hr - urine and blood cultures pending - CT abd/pelvis prelim read noting Left renal collecting system dilation seen. No definite obstructing calculus. This may be due to passed stone, or urinary tract infection. Mild prostate enlargement noted. - urology consulted - ID consulted - will need to get records from Dr. Gracia's office as to what procedure was performed in the office LIDIA - baseline CRE 1.1-1.3 - likely in setting of sepsis - kidney/bladder U/S - FeNa 0.4% suggesting pre-renal LIDIA, continue to hydrate and monitor for resolution - I+Os, weights Elevated Liver Enzymes - likely in setting of sepsis - continue hydration - monitor for resolution DM - BGM q4h - ISS q4h - can decrease rate of checks as BGMs improve - A1c - on Ozempic on Fridays Thrombocytopenia - likely component of sepsis - continue to monitor as sepsis is treated HLD - continue home Zetia BPH - continue home tamsulosin DVT PPx - heparin 5000 units subq tid FEN - LR at 100cc/hr, encourage PO intake - continue to monitor electrolytes and replete as necessary, minor hyponatremia noted and giving fluids - diabetic/sodium/fat controlled diet Dispo - admit to Med-surg Family Medical History Family Hx Cardiac Disorders: Mother (HTN), Father (unknown cardiac disorder) Family Hx Congestive Heart Failure: Mother Family Hx Diabetes: Mother Visit type - Emergency Visit Emergency Visit: Yes ED Registration Date: 10/04/19 Care time: The patient presented to the Emergency Department on the above date and was hospitalized for further evaluation of their emergent condition. - New Patient This patient is new to me today: Yes Date on this admission: 10/05/19 - Critical Care Critical Care patient: No
[2019-10-04] MEDS ORDERED: PIPERACILLIN/TAZOB 3.375 GM 3.375 GM/50 ML BAG IVPB ONE (20:09)
[2019-10-04] MEDS: LACTATED RINGERS SOLUTION 1,000 ML IV SCH (20:53)
[2019-10-04] MEDS ORDERED: INSULIN SLIDING SCALE (NOVOLOG) 1 VIAL SQ SCH (22:00)
[2019-10-04] MEDS ORDERED: PATIENT'S OWN MEDICATION (NON-FORMULARY) (Brimonidine/Dorzolamide/Pf [Brimonidine 0.15%-Do OU SCH (22:00)
[2019-10-04] MEDS ORDERED: HEPARIN NA (PORCINE) 5,000 UNITS/ML 1ML VIAL ONE (22:35)
[2019-10-04] MEDS ORDERED: INSULIN (NOVOLOG) ASPART 100 UNITS/ML 10ML VIAL ONE (22:42)
[2019-10-04] MEDS: HEPARIN NA (PORCINE) 5,000 UNITS/ML 1ML VIAL SQ SCH (22:43)
--- NOTE | 2019-10-04 23:11 | PN ---
Teaching Attending Note Name of Resident: Bipin Morejon ATTENDING PHYSICIAN STATEMENT I saw and evaluated the patient. I reviewed the resident's note and discussed the case with the resident. I agree with the resident's findings and plan as documented. SUBJECTIVE: 74 year old male with a past medical history of DM, HTN, HLD, and BPH, and a recent TURP procedure [address] Gracia, complains of a 2 to 3-day history of fevers, chills, generalized weakness, nausea, dysuria associated with at least 2 episodes of vomitingnon-bilious/nonbloody. No recent travels or sick contacts. Reported receiving antibiotics postop but cannot remember which ones. Patient is a very poor historian and was not very reliable for history. Given Rocephin in the emergency room as well as IV fluid. Subsequently added Zosyn for additional coverage in light of sepsis. OBJECTIVE: Last Vital Signs Temp Pulse Resp BP Pulse Ox 102.5 F H 127 H 18 139/83 98 10/04/19 16:17 10/04/19 16:17 10/04/19 16:17 10/04/19 16:17 10/04/19 16:17 GENERAL: Well developed, well nourished. Awake and alert. No acute distress. HEENT: Normocephalic, atraumatic. PERRLA, EOMI. No conjunctival pallor. Sclera are non- icteric. Moist mucous membranes. Oropharynx is clear. NECK: Supple. Full ROM. No JVD. Carotid pulses 2+ and symmetric, without bruits. No thyromegaly. No lymphadenopathy. CARDIOVASCULAR: Regular rate and rhythm. No murmurs, rubs, or gallops. Distal pulses are 2+ and symmetric. PULMONARY: No evidence of respiratory distress. Lungs clear to auscultation bilaterally. No wheezing, rales or rhonchi. ABDOMINAL: Soft. Non-tender. Non-distended. No rebound or guarding. No organomegaly. Normoactive bowel sounds. MUSCULOSKELETAL Normal range of motion at all joints. No bony deformities or tenderness. No CVA tenderness. EXTREMITIES: No cyanosis. No clubbing. No edema. No calf tenderness. SKIN: Warm and dry. Normal capillary refill. No rashes. No jaundice. PSYCHIATRIC: Cooperative. Good eye contact. Appropriate mood and affect. Patient thought to have borderline dysarthria however may be dialect of Hungarian. As per his sister, Jeimy Cullen, the speech pattern is chronic Abnormal Lab Results 10/04/19 10/04/19 10/04/19 16:33 16:33 16:33 RDW 19.7 H Plt Count 126 L MPV 7.2 L Neutrophils % 83.9 H Lymphocytes % 7.9 L D PT with INR INR PTT (Actin FS) VBG pH POC VBG pCO2 POC VBG pO2 VBG HCO3 VBG O2 Sat (Kota) Sodium 134 L BUN 20.0 H Creatinine 1.7 H Random Glucose 284 H Lactic Acid AST 91 H Urine Protein 2+ H Urine Glucose (UA) 3+ H Urine Ketones Trace H Urine Blood 2+ H Urine Nitrite Positive H Ur Random Sodium Ur Random Chloride 10/04/19 10/04/19 10/04/19 16:33 16:33 16:50 RDW Plt Count MPV Neutrophils % Lymphocytes % PT with INR 16.40 H INR 1.39 H PTT (Actin FS) 41.0 H VBG pH 7.49 H POC VBG pCO2 30.0 L POC VBG pO2 59.4 H VBG HCO3 22.9 L VBG O2 Sat (Kota) 91.2 H Sodium BUN Creatinine Random Glucose Lactic Acid 2.5 H* AST Urine Protein Urine Glucose (UA) Urine Ketones Urine Blood Urine Nitrite Ur Random Sodium Ur Random Chloride 10/04/19 16:50 RDW Plt Count MPV Neutrophils % Lymphocytes % PT with INR INR PTT (Actin FS) VBG pH POC VBG pCO2 POC VBG pO2 VBG HCO3 VBG O2 Sat (Kota) Sodium BUN Creatinine Random Glucose Lactic Acid AST Urine Protein Urine Glucose (UA) Urine Ketones Urine Blood Urine Nitrite Ur Random Sodium 25 L Ur Random Chloride 19 L Imaging studies reviewed ASSESSMENT AND PLAN: 74-year-old male with severely uncontrolled diabetes mellitus with sepsis secondary to complicated urinary tract infection in light of recent TURP. Suspect bacterial seeding status post procedure. Suspect metabolic encephalopathy secondary to infection. Mild lactic acidosis, thrombocytopenia, AKIlikely secondary to sepsis. Neutrophil predominance on CBC dif. Should rule out postsurgical complications with abdomen/pelvic imaging. Flu swab was negative in the emergency room. Continue with empiric Zosyn 3.375 IV every 6 hours IV fluid hydration Blood and urine cultures were sent Infectious disease consultation Urology consultationDr. Joni Hoover Repeat lactic acid to ensure improvement CT of abdomen/pelvis to rule out any postsurgical complications #AKIsecondary to sepsis Avoid nephrotoxins I's and O's Daily weights Urine lites #Uncontrolled diabetes mellitus NovoLog sliding scale Glargine insulin Diabetic diet A1c #BPH Continue with home dose Flomax #DVT prophylaxisheparin subcutaneously
[2019-10-05 00:13] VITALS: BMI 30.3
[2019-10-05] MEDS: LACTATED RINGERS SOLUTION 1,000 ML IV SCH ×2 (01:01→11:11)
[2019-10-05] MEDS ORDERED: PIPERACILLIN/TAZOBACTAM 3.375 GM VIAL IVPB ONE ×2 (01:09→08:37)
[2019-10-05] MEDS ORDERED: DEXTROSE 5%-WATER - 50 ML IVPB ONE ×2 (01:09→08:38)
[2019-10-05] MEDS: PIPERACILLIN/TAZOB 3.375 GM 3.375 GM in DEXTROSE 5%-WATER - 50 ML IVPB SCH ×2 (03:00→08:44)
[2019-10-05] MEDS ORDERED: PIPERACILLIN/TAZOB 3.375 GM 3.375 GM in DEXTROSE 5%-WATER - 50 ML IVPB SCH (03:00)
[2019-10-05] MEDS: HEPARIN NA (PORCINE) 5,000 UNITS/ML 1ML VIAL SQ SCH ×3 (06:10→21:16)
[2019-10-05] MEDS: INSULIN SLIDING SCALE (NOVOLOG) 1 VIAL SQ SCH ×5 (06:11→21:22)
[2019-10-05] MEDS ORDERED: TAMSULOSIN HCL 0.4 MG CAP PO SCH ×2 (08:30→10:42)
[2019-10-05] MEDS: EZETIMIBE 10 MG TABLET (FP) PO SCH ×2 (08:42→09:43)
[2019-10-05 09:40] LABS: BASO % 0.5 % (0-2.0); HEMATOCRIT 36.9 % (35.4-49); HEMOGLOBIN 12.1 GM/dL (11.7-16.9); LYMPH % 11.8 % (8-40); MCH 26.5 pg (25.7-33.7); MCHC 32.9 g/dl (32.0-35.9); MEAN CELL VOLUME 80.5 fl (80-96); MEAN PLT VOLUME 7.4 fl (7.5-11.1); MONO % 12.1 % (3.8-10.2); NEUT % 75.6 % (42.8-82.8); RBC 4.58 M/mm3 (4.00-5.60); RDW 19.7 % (11.9-15.9); WHITE BLOOD COUNT 6.1 K/mm3 (4.0-10.0)
[2019-10-05] MEDS ORDERED: LATANOPROST 0.005% OPHTH SOLN 2.5ML BOTTLE OU SCH (10:00)
[2019-10-05 10:06] LABS: ALBUMIN 3.1 g/dl (3.4-5.0); BILIRUBIN,TOTAL 0.7 mg/dL (0.2-1); BLOOD UREA NITROGEN 16.5 mg/dL (7-18); CALCIUM 7.8 mg/dL (8.5-10.1); CREATININE 1.5 mg/dL (0.55-1.3); MAGNESIUM 2.1 mg/dL (1.8-2.4); PHOSPHOROUS 1.8 mg/dL (2.5-4.9); POTASSIUM 3.8 mmol/L (3.5-5.1); TOT PROT 6.3 g/dl (6.4-8.2)
[2019-10-05] MEDS ORDERED: SODIUM CHLORIDE 500 ML IV STA (10:43)
[2019-10-05] MEDS ORDERED: MEROPENEM 500 MG in DEXTROSE 5%-WATER 100 ML IVPB SCH ×2 (10:45→13:00)
[2019-10-05] MEDS ORDERED: FINASTERIDE 5 MG TABLET (FP) PO SCH (10:45)
[2019-10-05] MEDS ORDERED: MEROPENEM 500 MG VIAL (RESTRICTED TO ID) IVPB ONE (11:12)
[2019-10-05] MEDS ORDERED: DEXTROSE 5%-WATER 100 ML IVPB ONE ×2 (11:12→16:05)
[2019-10-05 11:42] LABS: PLATELET COUNT 85 K/MM3 (134-434)
[2019-10-05] MEDS ORDERED: ACETAMINOPHEN 325 MG TABLET (FP) PO PRN (12:46)
--- NOTE | 2019-10-05 12:57 | PN ---
<Jordan Martínez - Last Filed: 10/05/19 16:47> Physical Exam: SUBJECTIVE: Patient seen and examined at bedside. Denies any complaints. States he is urinatin okay and no burning at this time. Bolused pt with 500cc NS to help rehydrate him, pre-renal azotemia as Cr elevated from baseline. OBJECTIVE: Vital Signs Period Temp Pulse Resp BP Sys/Balbuena Pulse Ox Last 24 Hr 97.6 F-102.7 F 77-127 18-20 135-150/76-83 98-98 GENERAL: The patient is awake, alert, and fully oriented, in no acute distress. HEAD: Normal with no signs of trauma. NECK: supple. LUNGS: Breath sounds equal, clear to auscultation bilaterally, no wheezes, no crackles, no accessory muscle use. HEART: Regular rate and rhythm, S1, S2 without murmur, rub or gallop. ABDOMEN: Soft, nontender, nondistended, normoactive bowel sounds, no guarding, no rebound, no hepatosplenomegaly, no masses. EXTREMITIES: 2+ pulses, warm, well-perfused, no edema. NEUROLOGICAL: Cranial nerves II through XII grossly intact. Normal speech, gait not observed. no weakness in extremities 5/5. sensation intact b/l. PSYCH: Normal mood, normal affect. SKIN: dry skin on back (chronic) normal turgor, no rashes or lesions noted Laboratory Results - last 24 hr 10/04/19 10/04/19 10/04/19 16:30 16:33 16:33 WBC 7.9 RBC 5.29 Hgb 14.0 Hct 42.6 MCV 80.7 MCH 26.6 MCHC 32.9 RDW 19.7 H Plt Count 126 L MPV 7.2 L Absolute Neuts (auto) 6.6 Neutrophils % 83.9 H Lymphocytes % 7.9 L D Monocytes % 7.8 Eosinophils % 0.0 D Basophils % 0.4 Nucleated RBC % 0 PT with INR INR PTT (Actin FS) VBG pH POC VBG pCO2 POC VBG pO2 VBG HCO3 VBG O2 Sat (Kota) VBG Base Excess Sodium Potassium Chloride Carbon Dioxide Anion Gap BUN Creatinine Est GFR (CKD-EPI)AfAm Est GFR (CKD-EPI)NonAf POC Glucometer Random Glucose Hemoglobin A1c % Lactic Acid Calcium Phosphorus Magnesium Total Bilirubin AST ALT Alkaline Phosphatase Troponin I Total Protein Albumin Urine Color Yellow Urine Appearance Cloudy Urine pH 5.0 Ur Specific [place] 1.022 Urine Protein 2+ H Urine Glucose (UA) 3+ H Urine Ketones Trace H Urine Blood 2+ H Urine Nitrite Positive H Urine Bilirubin Negative Urine Urobilinogen 0.2 Ur Leukocyte Esterase Negative Urine WBC (Auto) 3 Urine RBC (Auto) 2 Urine Casts (Auto) 2 U Epithel Cells (Auto) 1.7 Urine Bacteria (Auto) 19.8 Urine Yeast (Auto) Rare Ur Random Creatinine Ur Random Sodium Ur Random Potassium Ur Random Chloride Influenza A (Rapid) Negative Influenza B (Rapid) Negative Active Medications Generic Name Dose Route Start Last Admin Trade Name Freq PRN Reason Stop Dose Admin Acetaminophen 650 mg 10/05/19 12:46 Tylenol - PO Q6H PRN FEVER Acetaminophen 1,000 mg 10/05/19 12:46 Ofirmev Injection - IVPB 10/05/19 12:47 ONCE ONE Ezetimibe 10 mg 10/05/19 10:00 10/05/19 09:43 Zetia - PO Not Given DAILY DEBBIE Heparin Sodium (Porcine) 5,000 unit 10/04/19 22:00 10/05/19 06:10 Heparin - SQ 5,000 unit TID DEBBIE Administration Meropenem 500 mg/ Dextrose 100 mls @ 200 mls/hr 10/05/19 10:45 IVPB Q12H DEBBIE Lactated Ringer's 1,000 mls @ 125 mls/hr 10/05/19 10:41 10/05/19 11:11 Lactated Ringers Solution IV 125 mls/hr ASDIR DEBBIE Administration Meropenem 500 mg/ Dextrose 100 mls @ 200 mls/hr 10/05/19 13:00 IVPB 10/06/19 13:29 Q12H DEBBIE Insulin Aspart 1 vial 10/05/19 06:15 10/05/19 09:57 Novolog Vial Sliding Scale - SQ 4 units Q4HPO DEBBIE Administration Protocol Latanoprost 1 drop 10/05/19 22:00 Xalatan 0.005% Eye Drops - OU HS DEBBIE Non-Formulary Medication 1 drop 10/04/19 22:00 Brimonidine/Dorzolamide/Pf [Brimonidine 0.15%-Dorzolam 2%] OU BID DEBBIE Non-Formulary Medication 0.5 mg 10/06/19 10:00 Semaglutide [Ozempic] SQ WEEKLY [facility] Tamsulosin HCl 0.4 mg 10/05/19 11:54 Flomax - PO DAILY@0830 [facility] ASSESSMENT/PLAN: EKG--> Sinus tachycardia, non-specific T wave changes, no ST segment changes, QTc 407 Esteban Cullen is a 74 year old male with a past medical history of DM, HTN, HLD , and BPH, and a recent TURP procedure admitted for sepsis secondary to UTI due to recent instrumentation. Sepsis secondary to UTI - recent cystoscopy done a few wks back per Uro. - Temp 102.5, sinus tach with UA with positive nitrites, lots of glucose in urine predisposing to infection - normalized lactate - increased ceftriaxone to 2g to cover complicated UTI - d/c Zosyn switched to meropenem 500mg BID - increased LR to 125cc/hr - urine and blood cultures pending - CT abd/pelvis noting Left renal hydro but per uro its chronic 2/2 BPH. No obstructing calculus. - urology Dr. SAUL Thapa will see pt during admission - ID consulted recommended stat dose vanco in addition to tawanna. - will need to get records from Dr. Celeste's office as to what procedure was performed in the office LIDIA - baseline CRE 1.1-1.3 - todays Cr 1.5 - pre-renal likely in setting of sepsis given FeNA less than 1% - PVR initially increased and will rpt - continue to hydrate LR 125 CC/hr and monitor for resolution - I+Os, - weights Elevated Liver Enzymes - likely in setting of sepsis - continue hydration - monitor for resolution DM - BGM Q4H - ISS AQ4H - can decrease rate of checks as BGMs improve - A1c 7 - on Ozempic on Fridays Thrombocytopenia - likely component of sepsis - continue to monitor as sepsis is treated HLD - continue home Zetia BPH - continue home tamsulosin 0.4, s/w uro who does not think increasing flomax will improve his BPH. DVT PPx - heparin 5000 units subq tid FEN - LR at 125 cc/hr, encourage PO intake - continue to monitor electrolytes and replete as necessary - diabetic/sodium/fat controlled diet Visit type - Emergency Visit Emergency Visit: Yes ED Registration Date: 10/04/19 Care time: The patient presented to the Emergency Department on the above date and was hospitalized for further evaluation of their emergent condition. - New Patient This patient is new to me today: Yes Date on this admission: 10/05/19 - Critical Care Critical Care patient: No - Discharge Referral Referred to [facility] Med P.C.: No ATTENDING PHYSICIAN STATEMENT I saw and evaluated the patient. I reviewed the resident's note and discussed the case with the resident. I agree with the resident's findings and plan as documented. SUBJECTIVE: OBJECTIVE: ASSESSMENT AND PLAN: <YoanJomar - Last Filed: 10/06/19 17:42> Physical Exam: SUBJECTIVE: Patient seen and examined OBJECTIVE: Vital Signs Period Temp Pulse Resp BP Sys/Balbuena Pulse Ox Last 24 Hr 99.1 F-102.9 F 90-114 16-20 138-180/60-91 97 GENERAL: The patient is awake, alert, and fully oriented, in no acute distress. HEAD: Normal with no signs of trauma. EYES: PERRL, extraocular movements intact, sclera anicteric, conjunctiva clear. No ptosis. ENT: Ears normal, nares patent, oropharynx clear without exudates, moist mucous membranes. NECK: Trachea midline, full range of motion, supple. LUNGS: Breath sounds equal, clear to auscultation bilaterally, no wheezes, no crackles, no accessory muscle use. HEART: Regular rate and rhythm, S1, S2 without murmur, rub or gallop. ABDOMEN: Soft, nontender, nondistended, normoactive bowel sounds, no guarding, no rebound, no hepatosplenomegaly, no masses. EXTREMITIES: 2+ pulses, warm, well-perfused, no edema. NEUROLOGICAL: Cranial nerves II through XII grossly intact. Normal speech, gait not observed. PSYCH: Normal mood, normal affect. SKIN: Warm, dry, normal turgor, no rashes or lesions noted Laboratory Results - last 24 hr 10/05/19 10/05/19 10/05/19 08:45 13:13 17:17 WBC RBC Hgb Hct MCV MCH MCHC RDW Plt Count 85 L D MPV Absolute Neuts (auto) Neutrophils % Lymphocytes % Monocytes % Eosinophils % Basophils % Nucleated RBC % Sodium Potassium Chloride Carbon Dioxide Anion Gap BUN Creatinine Est GFR (CKD-EPI)AfAm Est GFR (CKD-EPI)NonAf POC Glucometer 212 169 Random Glucose Calcium Total Bilirubin AST ALT Alkaline Phosphatase Total Protein Albumin 10/05/19 10/06/19 10/06/19 21:19 02:18 04:30 WBC RBC Hgb Hct MCV MCH MCHC RDW Plt Count MPV Absolute Neuts (auto) Neutrophils % Lymphocytes % Monocytes % Eosinophils % Basophils % Nucleated RBC % Sodium Potassium Chloride Carbon Dioxide Anion Gap BUN Creatinine Est GFR (CKD-EPI)AfAm Est GFR (CKD-EPI)NonAf POC Glucometer 218 154 149 Random Glucose Calcium Total Bilirubin AST ALT Alkaline Phosphatase Total Protein Albumin 10/06/19 10/06/19 10/06/19 07:22 07:22 09:59 WBC 5.8 RBC 4.85 Hgb 12.7 Hct 38.9 MCV 80.2 MCH 26.2 MCHC 32.6 RDW 20.0 H Plt Count 68 L MPV 8.1 Absolute Neuts (auto) 4.1 Neutrophils % 70.2 Lymphocytes % 13.0 Monocytes % 16.1 H Eosinophils % 0.0 Basophils % 0.7 Nucleated RBC % 0 Sodium 137 Potassium 4.1 Chloride 102 Carbon Dioxide 26 Anion Gap 8 BUN 15.1 Creatinine 1.3 Est GFR (CKD-EPI)AfAm 63.18 Est GFR (CKD-EPI)NonAf 54.51 POC Glucometer 202 Random Glucose 131 H Calcium 8.2 L Total Bilirubin 1.0 AST 99 H ALT 65 H Alkaline Phosphatase 95 Total Protein 6.9 Albumin 3.3 L Active Medications Generic Name Dose Route Start Last Admin Trade Name Freq PRN Reason Stop Dose Admin Acetaminophen 1,000 mg 10/06/19 00:00 10/06/19 08:17 Ofirmev Injection - IVPB 10/07/19 00:00 1,000 mg Q6H PRN Administration FEVER Ezetimibe 10 mg 10/05/19 10:00 10/06/19 09:09 Zetia - PO 10 mg DAILY DEBBIE Administration Heparin Sodium (Porcine) 5,000 unit 10/04/19 22:00 10/06/19 05:58 Heparin - SQ 5,000 unit TID DEBBIE Administration Lactated Ringer's 1,000 mls @ 125 mls/hr 10/05/19 10:41 10/06/19 07:24 Lactated Ringers Solution IV 125 mls/hr ASDIR DEBBIE Administration Meropenem 1 gm/ Dextrose 100 mls @ 200 mls/hr 10/05/19 18:00 10/06/19 09:09 IVPB 200 mls/hr Q8H-IV DEBBIE Administration Insulin Aspart 1 vial 10/05/19 06:15 10/06/19 10:02 Novolog Vial Sliding Scale - SQ 4 units Q4HPO DEBBIE Administration Protocol Latanoprost 1 drop 10/05/19 22:00 10/05/19 21:17 Xalatan 0.005% Eye Drops - OU 1 drop HS DEBBIE Administration Non-Formulary Medication 1 drop 10/04/19 22:00 Brimonidine/Dorzolamide/Pf [Brimonidine 0.15%-Dorzolam 2%] OU BID DEBBIE Tamsulosin HCl 0.4 mg 10/05/19 11:54 10/06/19 08:16 Flomax - PO 0.4 mg DAILY@0830 DEBBIE Administration ASSESSMENT/PLAN: ATTENDING PHYSICIAN STATEMENT I saw and evaluated the patient. I reviewed the resident's note and discussed the case with the resident. I agree with the resident's findings and plan as documented. SUBJECTIVE: OBJECTIVE: ASSESSMENT AND PLAN:
[2019-10-05] MEDS ORDERED: ACETAMINOPHEN 1000 MG/100 ML VIAL (NON FORMULARY) IVPB ONE (13:15)
--- NOTE | 2019-10-05 15:08 | PN ---
Progress Note (short form) - Note Progress Note: ID CONSULT DICTATED SEPSIS ? SOURCE HYDRONEPHROSIS BPH S/P TURP LACTIC ACIDOSIS THROMBOCYTOPENIA AZOTEMIA TRANSAMINITIS AWAIT SEPSIS W/U EMPIRIC MEROPENEM + STAT DOSE VANCOMYCIN EVALUATION
--- NOTE | 2019-10-05 15:12 | EKG ---
Test Reason : Blood Pressure : / mmHG Vent. Rate : 120 BPM Atrial Rate : 120 BPM P-R Int : 142 ms QRS Dur : 068 ms QT Int : 288 ms P-R-T Axes : 046 013 028 degrees QTc Int : 407 ms SINUS TACHYCARDIA POSSIBLE LEFT ATRIAL ENLARGEMENT NONSPECIFIC T WAVE ABNORMALITY ABNORMAL ECG WHEN COMPARED WITH ECG OF 16-AUG-2019 18:25, NONSPECIFIC T WAVE ABNORMALITY NOW EVIDENT IN INFERIOR LEADS NONSPECIFIC T WAVE ABNORMALITY NOW EVIDENT IN ANTEROLATERAL LEADS Confirmed by KARLOS WADE MD ([id number]) on 10/05/2019 3:11:54 PM Referred By: Confirmed By:KARLOS WADE MD
--- NOTE | 2019-10-05 15:40 | CONS ---
INFECTIOUS DISEASE CONSULTATION DATE OF CONSULTATION: DATE OF DICTATION: 10/05/2019 HISTORY: The patient is a 74-year-old male who was evaluated for fever. History was obtained primarily from the chart as well as the patient's sister as he does not give a reliable history. She reports that he underwent a urologic procedure on Sunday, September 29, 2019, presumably a TURP. She was unaware of whether or not he had taken antibiotics around the time of the procedure. He is now admitted with complaints of 2 days of worsening generalized weakness, arthralgias, myalgias, dysuria, fever, and dry cough. He was evaluated in the emergency room where he was noted to be febrile above 102. He was also tachycardic. Patient had experienced vomiting in the ER. A CAT scan of the abdomen and pelvis was performed and showed evidence of hydronephrosis without obvious obstruction. An influenza swab was performed and was negative. His chest x-ray was negative for acute infiltrate. At the present time, he is awake. He complains of generalized weakness. He also complains of some dysuria. No reports of hematuria. PAST MEDICAL HISTORY: Positive for hypertension, hyperlipidemia, diabetes mellitus BPH. ALLERGIES: No known allergies. MEDICATIONS: Include Zosyn, meropenem, Tylenol, ceftriaxone, Zetia, Flomax. SOCIAL HISTORY: Lives at home in the community. He is a nonsmoker. SYSTEMS REVIEW: Neurologic: No loss of consciousness, seizure activity, focal weakness. Cardiac: Negative chest pain or palpitations. Respiratory: Positive for cough. Gastrointestinal: Positive for vomiting. No diarrhea. Genitourinary: As per HPI. LABORATORY DATA: White count 6.1, hematocrit 36.9, platelets 85, creatinine 1.5. Influenza swab negative. Urinalysis, 3 white cells, 2 red cells. Lactic acid 2.5, total bilirubin 0.7, alkaline phosphatase 86, AST 88. PHYSICAL EXAMINATION: General: He is ill appearing. Vital Signs: Maximum temperature 102.7, blood pressure 147/76, pulse 109 regular, respirations 18 per minute. HEENT: Sclerae anicteric. Heart: Sounds tachycardic. S1, S2. Lungs: Clear. Abdomen: Distended. Tympanitic. No tenderness elicited. No suprapubic tenderness or flank tenderness. Extremities: Negative for edema. IMPRESSION: 1. Sepsis possibly secondary to genitourinary focus. 2. Hydronephrosis. 3. Status post transurethral resection of the prostate. 4. Lactic acidosis. 5. Thrombocytopenia possibly secondary to sepsis. 6. Azotemia. 7. Transaminitis. PLAN: Await sepsis workup. Empiric antibiotic coverage with meropenem plus STAT dose of vancomycin. Urology evaluation. We will follow. Thank you for the kind referral. HOWIE RICHARD M.D. [id number]
[2019-10-05] MEDS ORDERED: VANCOMYCIN 1 GRAM (PRE-DOCKED) 1,000 MG/250 ML BAG IVPB ONE (15:45)
[2019-10-05] MEDS ORDERED: MEROPENEM 1 GM VIAL (RESTRICTED TO ID) IVPB ONE (16:05)
[2019-10-05] MEDS: MEROPENEM 1 GM in DEXTROSE 5%-WATER 100 ML IVPB SCH (17:15)
[2019-10-05] MEDS: LATANOPROST 0.005% OPHTH SOLN 2.5ML BOTTLE OU SCH (21:17)
[2019-10-06] MEDS: ACETAMINOPHEN 1000 MG/100 ML VIAL (NON FORMULARY) IVPB PRN ×2 (00:10→08:17)
[2019-10-06] MEDS ORDERED: MEROPENEM 1 GM VIAL (RESTRICTED TO ID) IVPB ONE ×3 (02:08→16:08)
[2019-10-06] MEDS ORDERED: DEXTROSE 5%-WATER 100 ML IVPB ONE ×3 (02:09→16:08)
[2019-10-06] MEDS: MEROPENEM 1 GM in DEXTROSE 5%-WATER 100 ML IVPB SCH ×3 (02:19→17:02)
[2019-10-06] MEDS: INSULIN SLIDING SCALE (NOVOLOG) 1 VIAL SQ SCH ×6 (02:22→21:56)
[2019-10-06] MEDS: HEPARIN NA (PORCINE) 5,000 UNITS/ML 1ML VIAL SQ SCH (05:58)
--- NOTE | 2019-10-06 06:57 | PN ---
Physical Exam: SUBJECTIVE: Patient seen and examined at bedside today. No acute complaints. He vomited once small amount nbnb emesis. 102 temp over night again subsided with ofirmev. OBJECTIVE: Vital Signs Period Temp Pulse Resp BP Sys/Balbuena Pulse Ox Last 24 Hr 99.4 F-102.9 F 90-110 18-20 138-158/60-90 97-98 GENERAL: The patient is awake, alert, and fully oriented, in no acute distress. NECK: supple. LUNGS: Breath sounds equal, clear to auscultation bilaterally, no wheezes, no crackles, no accessory muscle use. HEART: Regular rate and rhythm, S1, S2 without murmur, rub or gallop. ABDOMEN: Soft, nontender, nondistended EXTREMITIES: 2+ pulses, warm, well-perfused, no edema. NEUROLOGICAL: Cranial nerves II through XII grossly intact. Normal speech, gait not observed. PSYCH: Normal mood, normal affect. SKIN: Warm, dry skin on back, no rashes or lesions noted Laboratory Results - last 24 hr 10/05/19 10/05/19 10/05/19 08:45 08:45 08:45 WBC 6.1 RBC 4.58 Hgb 12.1 Hct 36.9 MCV 80.5 MCH 26.5 MCHC 32.9 RDW 19.7 H Plt Count 85 L D MPV 7.4 L Absolute Neuts (auto) 4.6 Neutrophils % 75.6 Lymphocytes % 11.8 D Monocytes % 12.1 H Eosinophils % 0.0 Basophils % 0.5 Nucleated RBC % 0 Sodium 136 Potassium 3.8 Chloride 104 Carbon Dioxide 24 Anion Gap 8 BUN 16.5 Creatinine 1.5 H Est GFR (CKD-EPI)AfAm 53.14 Est GFR (CKD-EPI)NonAf 45.85 POC Glucometer Random Glucose 178 H Hemoglobin A1c % 7.0 H Calcium 7.8 L Phosphorus 1.8 L Magnesium 2.1 Total Bilirubin 0.7 AST 88 H ALT 54 Alkaline Phosphatase 86 Total Protein 6.3 L Albumin 3.1 L 10/05/19 10/05/19 10/05/19 09:44 13:13 17:17 WBC RBC Hgb Hct MCV MCH MCHC RDW Plt Count MPV Absolute Neuts (auto) Neutrophils % Lymphocytes % Monocytes % Eosinophils % Basophils % Nucleated RBC % Sodium Potassium Chloride Carbon Dioxide Anion Gap BUN Creatinine Est GFR (CKD-EPI)AfAm Est GFR (CKD-EPI)NonAf POC Glucometer 222 212 169 Random Glucose Hemoglobin A1c % Calcium Phosphorus Magnesium Total Bilirubin AST ALT Alkaline Phosphatase Total Protein Albumin 10/05/19 10/06/19 10/06/19 21:19 02:18 04:30 WBC RBC Hgb Hct MCV MCH MCHC RDW Plt Count MPV Absolute Neuts (auto) Neutrophils % Lymphocytes % Monocytes % Eosinophils % Basophils % Nucleated RBC % Sodium Potassium Chloride Carbon Dioxide Anion Gap BUN Creatinine Est GFR (CKD-EPI)AfAm Est GFR (CKD-EPI)NonAf POC Glucometer 218 154 149 Random Glucose Hemoglobin A1c % Calcium Phosphorus Magnesium Total Bilirubin AST ALT Alkaline Phosphatase Total Protein Albumin Active Medications Generic Name Dose Route Start Last Admin Trade Name Freq PRN Reason Stop Dose Admin Acetaminophen 1,000 mg 10/06/19 00:00 10/06/19 00:10 Ofirmev Injection - IVPB 10/07/19 00:00 1,000 mg Q6H PRN Administration FEVER Ezetimibe 10 mg 10/05/19 10:00 10/05/19 09:43 Zetia - PO Not Given DAILY DEBBIE Heparin Sodium (Porcine) 5,000 unit 10/04/19 22:00 10/06/19 05:58 Heparin - SQ 5,000 unit TID DEBBIE Administration Lactated Ringer's 1,000 mls @ 125 mls/hr 10/05/19 10:41 10/05/19 11:11 Lactated Ringers Solution IV 125 mls/hr ASDIR DEBBIE Administration Meropenem 1 gm/ Dextrose 100 mls @ 200 mls/hr 10/05/19 18:00 10/06/19 02:19 IVPB 200 mls/hr Q8H-IV DEBBIE Administration Insulin Aspart 1 vial 10/05/19 06:15 10/06/19 05:55 Novolog Vial Sliding Scale - SQ Not Given Q4HPO DEBBIE Protocol Latanoprost 1 drop 10/05/19 22:00 10/05/19 21:17 Xalatan 0.005% Eye Drops - OU 1 drop HS DEBBIE Administration Non-Formulary Medication 1 drop 10/04/19 22:00 Brimonidine/Dorzolamide/Pf [Brimonidine 0.15%-Dorzolam 2%] OU BID DEBBIE Non-Formulary Medication 0.5 mg 10/06/19 10:00 Semaglutide [Ozempic] SQ WEEKLY [facility] Tamsulosin HCl 0.4 mg 10/05/19 11:54 Flomax - PO DAILY@0830 [facility] ASSESSMENT/PLAN: EKG--> Sinus tachycardia, non-specific T wave changes, no ST segment changes, QTc 407 Esteban Cullen is a 74 year old male with a past medical history of DM, HTN, HLD , and BPH, and a recent TURP procedure admitted for sepsis secondary to UTI due to recent instrumentation. Sepsis secondary to UTI - recent cystoscopy done a few wks back per Uro. - Temp 102.5, sinus tach with UA with positive nitrites, lots of glucose in urine predisposing to infection - normalized lactate - increased ceftriaxone to 2g to cover complicated UTI - continue meropenem 500mg BID - c/w LR 125cc/hr - urine and blood cultures pending - CT abd/pelvis noting Left renal hydro but per uro its chronic 2/2 BPH. No obstructing calculus. - urology Dr. SAUL Thapa would like him to f/u as o/p. Pt sent home on macrobid for 10 days post cysto for UTI coverage. Await UA cultures. - stat dose vanco given yesterday in addition to tawanna. LIDIA - baseline CRE 1.1-1.3 - pre-renal likely in setting of sepsis given FeNA less than 1% - PVR initially increased and will rpt - continue to hydrate LR 125 CC/hr and monitor for resolution - I+Os, - weights Elevated Liver Enzymes - likely in setting of sepsis - continue hydration - monitor for resolution DM - BGM Q4H - ISS AQ4H - can decrease rate of checks as BGMs improve - A1c 7 - on Ozempic on Fridays Thrombocytopenia - likely component of sepsis - continue to monitor as sepsis is treated HLD - continue home Zetia BPH - continue home tamsulosin 0.4, s/w uro who does not think increasing flomax will improve his BPH. DVT PPx - holding heparin in view of thrombocytopenia - ? HIT so will monitor plt's after d/c of heparin - SCD's in place FEN - LR at 125 cc/hr, encourage PO intake - continue to monitor electrolytes and replete as necessary - diabetic/sodium/fat controlled diet Visit type - Emergency Visit Emergency Visit: Yes ED Registration Date: 10/04/19 Care time: The patient presented to the Emergency Department on the above date and was hospitalized for further evaluation of their emergent condition. - New Patient This patient is new to me today: No - Critical Care Critical Care patient: No - Discharge Referral Referred to [facility] Med P.C.: No ATTENDING PHYSICIAN STATEMENT I saw and evaluated the patient. I reviewed the resident's note and discussed the case with the resident. I agree with the resident's findings and plan as documented. SUBJECTIVE: OBJECTIVE: ASSESSMENT AND PLAN:
[2019-10-06] MEDS: LACTATED RINGERS SOLUTION 1,000 ML IV SCH ×3 (07:24→18:05)
[2019-10-06 08:04] LABS: BASO % 0.7 % (0-2.0); HEMATOCRIT 38.9 % (35.4-49); HEMOGLOBIN 12.7 GM/dL (11.7-16.9); MCH 26.2 pg (25.7-33.7); MCHC 32.6 g/dl (32.0-35.9); MEAN CELL VOLUME 80.2 fl (80-96); MEAN PLT VOLUME 8.1 fl (7.5-11.1); MONO % 16.1 % (3.8-10.2); NEUT % 70.2 % (42.8-82.8); PLATELET COUNT 68 K/MM3 (134-434); RBC 4.85 M/mm3 (4.00-5.60); WHITE BLOOD COUNT 5.8 K/mm3 (4.0-10.0)
--- NOTE | 2019-10-06 08:14 | CON.GU ---
Consult Consult Specialty:: urology - History of Present Illness Chief Complaint: uti History of Present Illness: Patient is a 74 year old male s/p office cystoscopy about 10 days ago who had been placed on macrobid for one week post procedure. Patient presents with uti and fever to ER. Patient is doing well and denies gross hematuria ane is afebrile. Patient denies difficulty voiding. Blood cultures have been negative and urine cultures are pending. The patient is currently afebrile with a normal WBC. Patient denies flank pain. - Past Medical History Endocrine: Yes: Diabetes Mellitus - Past Surgical History Past Surgical History: Yes: None - Alcohol/Substance Use Hx Alcohol Use: No History of Substance Use: reports: None - Smoking History Smoking history: Never smoked Have you smoked in the past 12 months: No - Social History Usual Living Arrangement: Alone ADL: Independent History of Recent Travel: No Home Medications - Allergies Allergies/Adverse Reactions: Allergies Allergy/AdvReac Type Severity Reaction Status Date / Time No Known Allergies Allergy Verified 10/04/19 16:17 - Home Medications Home Medications: Ambulatory Orders Canagliflozin [Invokana] 100 mg PO DAILY 11/12/16 Metformin HCl [Glucophage] 1,000 mg PO BID 11/12/16 Brimonidine/Dorzolamide/Pf [Brimonidine 0.15%-Dorzolam 2%] 1 drop OU BID Semaglutide [Ozempic] 2 mg SQ WEEKLY 08/16/19 Ezetimibe [Zetia] 10 mg PO DAILY 08/17/19 Insulin Lispro [Humalog] 12 unit SQ TID 08/17/19 Tamsulosin HCl [Flomax] 0.4 mg PO DAILY 08/17/19 Glipizide 10 mg PO BID 10/04/19 Latanoprost 0.005% Eye Drops [Xalatan 0.005% Eye Drops -] 1 drop AU HS 10/04/19 Physical Exam- Vital Signs: Vital Signs Temperature 101.4 F H 10/06/19 08:04 Pulse Rate 106 H 10/06/19 08:04 Respiratory Rate 16 10/06/19 08:04 Blood Pressure 155/89 10/06/19 08:04 O2 Sat by Pulse Oximetry (%) 97 10/05/19 21:00 Constitutional: Yes: Well Nourished, No Distress, Calm Eyes: Yes: WNL, Conjunctiva Clear, EOM Intact HENT: Yes: WNL, Atraumatic, Normocephalic Neck: Yes: WNL, Supple, Trachea Midline Cardiovascular: Yes: Regular Rate and Rhythm Respiratory: Yes: Regular Gastrointestinal: Yes: WNL, Normal Bowel Sounds, Soft Renal/: Yes: WNL Kidneys: Yes: WNL Pelvis: Yes: WNL Testicles: Yes: WNL Scrotum: Yes: WNL Prostate Exam: Yes: Swollen (no fluctuance) Musculoskeletal: Yes: WNL Imaging - Results Cat Scan: Report Reviewed Ultrasound: Report Reviewed Assessment/Plan imp chronic kidney disease mild left hydronephrosis secondary to bph bph uti plan change to po antibiotics once urine cultures are available will follow up as outpatient continue flomax
[2019-10-06] MEDS: TAMSULOSIN HCL 0.4 MG CAP PO SCH (08:16)
[2019-10-06 08:36] LABS: ALBUMIN 3.3 g/dl (3.4-5.0); BLOOD UREA NITROGEN 15.1 mg/dL (7-18); CALCIUM 8.2 mg/dL (8.5-10.1); CREATININE 1.3 mg/dL (0.55-1.3); POTASSIUM 4.1 mmol/L (3.5-5.1); TOT PROT 6.9 g/dl (6.4-8.2)
[2019-10-06] MEDS: EZETIMIBE 10 MG TABLET (FP) PO SCH (09:09)
[2019-10-06] MEDS ORDERED: SEMAGLUTIDE 0.5 MG SQ SCH (10:00)
[2019-10-06] MEDS ORDERED: INSULIN (NOVOLOG) ASPART 100 UNITS/ML 10ML VIAL ONE (10:01)
--- NOTE | 2019-10-06 11:28 | PN ---
Teaching Attending Note Name of Resident: Jelani Schmidt ATTENDING PHYSICIAN STATEMENT I saw and evaluated the patient. I reviewed the resident's note and discussed the case with the resident. I agree with the resident's findings and plan as documented. Seen and examined; please see resident note for further historical information. I personally verified all david historical information and exam findings. Personally interpreted all imaging and diagnostics and reviewed appropriate consults. I reviewed all labs and vital signs as per resident note and EMR as documented. I agree with the above assessment and plan unless supplemented by myself in the following. Seen and examined, denies flank pain, hemodynamically stable and afebrile. Pending urology evaluation. Discussed with her service over the phone and is indicated that the patient had a cystoscopy rather than a true TURP. Infectious disease continues to follow, appreciate expert opinion. Monitoring on the floor. Please see my addendum to the attending note from yesterday for the 24-hour for billing for yesterday. 10 item review of systems completed and is negative aside from as discussed in the subjective data in my own/the resident documentation. VS, labs, imaging reviewed NAD, AAO, resting comfortably in bed. RRR s1/2 no mgr Normal muscle tone, moves all 5 extremities with normal apparent strength Neck is supple, trachea midline, no teresita LN Lungs CTAB with sym expansion NT ND +BS no teresita organomegaly CN2-12 wnl; no FND NC AT EOMI PERRLA Normal mood, appropriate behavior, euthymic affect No skin breakdown or rashes noted No signs of bowel obstruction with fecal retention throughout the colon noted on abdominal x-ray. Ultrasound of the kidney and bladder show morphologically normal kidneys and urinary bladder with no evidence of hydronephrosis large postvoid residual volume with prostatic hypertrophy. Requested repeat PVR. Pending CT abdomen and pelvis shows mild left-sided hydronephrosis and hydroureter without obstruction. Prostate enlargement with calcification posterior to the seminal vesicles is noted with no additional evidence of acute pathology. The patient is noted to have prostatomegaly to 5.6-4 0.6 to 5.5 cm. No growth to date blood or urine cultures Assessment and plan: Patient is noted to present with sepsis secondary to urinary tract infection with recent urologic procedure. Urology is following, pending consultation. Renal function is noted to be improved compared to admission trending down to 1.5. Hyperglycemia is controlled. Transaminitis is persisting with normal bilirubin. Hypoalbuminemia noted to 3.3. Influenza negative. Infectious diseases seen the patient and they recommend empiric antibiotic coverage with meropenem plus a stat dose of vancomycin with the urology evaluation. Problems include: Sepsis secondary to a urinary source, sepsis improved UTI with recent cystoscopy, pending urology evaluation. Mild left-sided hydronephrosis with hydroureter without obstruction as noted on CT scan. Disagrees with renal ultrasound. Considering follow-up imaging. BPH with calcification, uptitrating tamsulosin. Diabetes mellitus with hyperglycemia. Hypoalbuminemia History of hypertension, avoid antihypertensives in the setting of sepsis. Fecal retention, daily MiraLAX.
[2019-10-06] MEDS: ACETAMINOPHEN 500 MG TABLET (FP) PO PRN ×2 (16:14→22:22)
--- NOTE | 2019-10-06 17:05 | PN ---
Progress Note, Physician History of Present Illness: SUPINE IN BED C/O LOOSE BMS DENIES DYSURIA REMAINS INTERMITTANTLY FEBRILE WBC WNL THROMBOCYTOPENIC LACTIC ACIDOSIS RESOLVED F/U NOTED - Current Medication List Current Medications: Active Medications Acetaminophen (Tylenol -) 1,000 mg PO Q6H PRN PRN Reason: FEVER Last Admin: 10/06/19 16:14 Dose: 1,000 mg Ezetimibe (Zetia -) 10 mg PO DAILY [facility] Last Admin: 10/06/19 09:09 Dose: 10 mg Lactated Ringer's (Lactated Ringers Solution) 1,000 mls @ 125 mls/hr IV ASDIR DEBBIE Last Admin: 10/06/19 16:09 Dose: 125 mls/hr Meropenem 1 gm/ Dextrose 100 mls @ 200 mls/hr IVPB Q8H-IV DEBBIE Last Admin: 10/06/19 17:02 Dose: 200 mls/hr Insulin Aspart (Novolog Vial Sliding Scale -) 1 vial SQ Q4HPO [facility]; Protocol Last Admin: 10/06/19 13:49 Dose: 4 units Latanoprost (Xalatan 0.005% Eye Drops -) 1 drop OU HS DEBBIE Last Admin: 10/05/19 21:17 Dose: 1 drop Non-Formulary Medication (Brimonidine/Dorzolamide/Pf [Brimonidine 0.15%- Dorzolam 2%]) 1 drop OU BID DEBBIE Tamsulosin HCl (Flomax -) 0.4 mg PO DAILY@0830 [facility] Last Admin: 10/06/19 08:16 Dose: 0.4 mg - Objective Vital Signs: Vital Signs Temperature 100.5 F H 10/06/19 16:07 Pulse Rate 98 H 10/06/19 15:09 Respiratory Rate 10/06/19 15:09 Blood Pressure 152/96 10/06/19 15:09 O2 Sat by Pulse Oximetry (%) 97 10/06/19 09:00 Constitutional: Yes: No Distress Cardiovascular: Yes: Regular Rate and Rhythm, S1, S2 Respiratory: Yes: CTA Bilaterally Gastrointestinal: Yes: Normal Bowel Sounds, Soft, Other (DISTENDED, TYMPANITIC) . No: Tenderness Edema: No Labs: CBC, BMP 10/06/19 07:22 10/06/19 07:22 INR, PTT INR 1.39 (0.83-1.09) H 10/04/19 16:50 Assessment/Plan FEVER ? SEPSIS SECONDARY TO SOURCE S/P CYSTO, COURSE OF NITROFURANTOIN BPH HYDRONEPHROSIS THROMBOCYTOPENIA ? SEPSIS LACTIC ACIDOSIS RESOLVED AWAIT C/S CONTINUE MEROPENEM
--- NOTE | 2019-10-06 17:54 | PN ---
Teaching Attending Note Name of Resident: Jordan Martínez ATTENDING PHYSICIAN STATEMENT I saw and evaluated the patient. I reviewed the resident's note and discussed the case with the resident. I agree with the resident's findings and plan as documented. Seen and examined; please see resident note for further historical information. I personally verified all david historical information and exam findings. Personally interpreted all imaging and diagnostics and reviewed appropriate consults. I reviewed all labs and vital signs as per resident note and EMR as documented. I agree with the above assessment and plan unless supplemented by myself in the following. Clinically improved today, urology saw the patient and states that the mild left hydro-is secondary to BPH and to change to p.o. antibiotics when cultures are available. He did have a fever later on in the day. Repeating renal ultrasound tomorrow 10 item review of systems completed and is negative aside from as discussed in the subjective data in my own/the resident documentation. VS, labs, imaging reviewed NAD, AAO, resting comfortably in bed. RRR s1/2 no mgr Normal muscle tone, moves all 5 extremities with normal apparent strength Neck is supple, trachea midline, no teresita LN Lungs CTAB with sym expansion NT ND +BS no teresita organomegaly CN2-12 wnl; no FND NC AT EOMI PERRLA Normal mood, appropriate behavior, euthymic affect No skin breakdown or rashes noted No signs of bowel obstruction with fecal retention throughout the colon noted on abdominal x-ray. Ultrasound of the kidney and bladder show morphologically normal kidneys and urinary bladder with no evidence of hydronephrosis large postvoid residual volume with prostatic hypertrophy. Requested repeat PVR. Pending CT abdomen and pelvis shows mild left-sided hydronephrosis and hydroureter without obstruction. Prostate enlargement with calcification posterior to the seminal vesicles is noted with no additional evidence of acute pathology. The patient is noted to have prostatomegaly to 5.6-4 0.6 to 5.5 cm. No growth to date blood or urine cultures Assessment and plan: Improved, renal function improving. Did have fever later on in the day. Continue with antibiotics per ID. Rechecking ultrasound and will reculture if necessary. Still no growth to date. Did have a small bowel movement, if he does not have a moderate to normal size tomorrow we can give a dose of lactulose alongside the MiraLAX. Problems include: Sepsis secondary to a urinary source, sepsis improved UTI with recent cystoscopy, pending urology evaluation. Mild left-sided hydronephrosis with hydroureter without obstruction as noted on CT scan. Disagrees with renal ultrasound. Considering follow-up imaging. BPH with calcification, uptitrating tamsulosin. Diabetes mellitus with hyperglycemia. Hypoalbuminemia History of hypertension, avoid antihypertensives in the setting of sepsis. Fecal retention, daily MiraLAX. Full code
[2019-10-06] MEDS: ONDANSETRON 4 MG/2 ML VIAL IVPUSH PRN (18:03)
[2019-10-06] MEDS: POLYETHYLENE GLYCOL 3350 119 GM BTL PO SCH (18:06)
[2019-10-06] MEDS: LATANOPROST 0.005% OPHTH SOLN 2.5ML BOTTLE OU SCH (22:00)
[2019-10-07] MEDS ORDERED: MEROPENEM 1 GM VIAL (RESTRICTED TO ID) IVPB ONE ×3 (01:02→17:49)
[2019-10-07] MEDS ORDERED: DEXTROSE 5%-WATER 100 ML IVPB ONE ×3 (01:02→17:49)
[2019-10-07] MEDS: MEROPENEM 1 GM in DEXTROSE 5%-WATER 100 ML IVPB SCH ×3 (01:08→18:08)
[2019-10-07] MEDS: HEPARIN NA (PORCINE) 5,000 UNITS/ML 1ML VIAL SQ SCH (01:16)
[2019-10-07] MEDS: INSULIN SLIDING SCALE (NOVOLOG) 1 VIAL SQ SCH ×6 (01:54→22:06)
[2019-10-07] MEDS: ACETAMINOPHEN 500 MG TABLET (FP) PO PRN ×2 (05:27→22:08)
[2019-10-07] MEDS: LACTATED RINGERS SOLUTION 1,000 ML IV SCH ×3 (06:18→18:56)
[2019-10-07 06:53] LABS: BASO % 0.7 % (0-2.0); EOS % 0.1 % (0-4.5); HEMATOCRIT 37.3 % (35.4-49); HEMOGLOBIN 12.3 GM/dL (11.7-16.9); LYMPH % 22.3 % (8-40); MCH 26.2 pg (25.7-33.7); MCHC 32.9 g/dl (32.0-35.9); MEAN CELL VOLUME 79.7 fl (80-96); MEAN PLT VOLUME 8.7 fl (7.5-11.1); NEUT % 48.9 % (42.8-82.8); PLATELET COUNT 61 K/MM3 (134-434); RBC 4.68 M/mm3 (4.00-5.60); RDW 19.9 % (11.9-15.9); WHITE BLOOD COUNT 4.1 K/mm3 (4.0-10.0)
[2019-10-07 07:15] LABS: ALBUMIN 3.1 g/dl (3.4-5.0); BILIRUBIN,TOTAL 0.7 mg/dL (0.2-1); BLOOD UREA NITROGEN 14.1 mg/dL (7-18); CALCIUM 8.4 mg/dL (8.5-10.1); CREATININE 1.1 mg/dL (0.55-1.3); POTASSIUM 3.9 mmol/L (3.5-5.1); TOT PROT 6.6 g/dl (6.4-8.2)
[2019-10-07] MEDS: TAMSULOSIN HCL 0.4 MG CAP PO SCH (08:18)
[2019-10-07] MEDS: EZETIMIBE 10 MG TABLET (FP) PO SCH (11:03)
[2019-10-07] MEDS: POLYETHYLENE GLYCOL 3350 119 GM BTL PO SCH (11:05)
[2019-10-07] MEDS ORDERED: INSULIN (NOVOLOG) ASPART 100 UNITS/ML 10ML VIAL ONE ×2 (11:07→15:42)
--- NOTE | 2019-10-07 11:13 | PN ---
Physical Exam: SUBJECTIVE: Patient seen and examined; had BM and will move miralax to PRN dosing tomorrow. No fevers. Will discuss with infectious disease regarding tapering off of the antibiotics and converting to an oral course. He has ongoing chronic thrombocytopenia but now he is less than half of his most recent low at 126, with a thrombocytopenia dating back to 2017. We are checking HCV and HIV and can consult hematology nonurgently. No bleeding noted 10 item review of systems completed and is negative aside from as discussed in the subjective data in my own/the resident documentation. OBJECTIVE: Vital Signs Period Temp Pulse Resp BP Sys/Balbuena Pulse Ox Last 24 Hr 98.6 F-101.3 F 92-98 16-20 146-160/90-98 97 GENERAL: The patient is awake, alert, and fully oriented, in no acute distress. HEAD: Normal with no signs of trauma. EYES: PERRL, extraocular movements intact, sclera anicteric, conjunctiva clear. No ptosis. ENT: Ears normal, nares patent, oropharynx clear without exudates, moist mucous membranes. NECK: Trachea midline, full range of motion, supple. LUNGS: Breath sounds equal, clear to auscultation bilaterally, no wheezes, no crackles, no accessory muscle use. HEART: Regular rate and rhythm, S1, S2 without murmur, rub or gallop. ABDOMEN: Soft, nontender, nondistended, normoactive bowel sounds, no guarding, no rebound, no hepatosplenomegaly, no masses. EXTREMITIES: 2+ pulses, warm, well-perfused, no edema. NEUROLOGICAL: Cranial nerves II through XII grossly intact. Normal speech, gait not observed. PSYCH: Normal mood, normal affect. SKIN: Warm, dry, normal turgor, no rashes or lesions noted Laboratory Results - last 24 hr 10/06/19 10/06/19 10/06/19 13:46 17:31 21:42 WBC RBC Hgb Hct MCV MCH MCHC RDW Plt Count MPV Absolute Neuts (auto) Neutrophils % Lymphocytes % Monocytes % Eosinophils % Basophils % Nucleated RBC % Sodium Potassium Chloride Carbon Dioxide Anion Gap BUN Creatinine Est GFR (CKD-EPI)AfAm Est GFR (CKD-EPI)NonAf POC Glucometer 216 214 186 Random Glucose Calcium Total Bilirubin AST ALT Alkaline Phosphatase Total Protein Albumin 01/25/20 01/25/20 01/25/20 01:52 05:51 06:00 WBC 4.1 RBC 4.68 Hgb 12.3 Hct 37.3 MCV 79.7 L MCH 26.2 MCHC 32.9 RDW 19.9 H Plt Count 61 L MPV 8.7 Absolute Neuts (auto) 2.0 Neutrophils % 48.9 D Lymphocytes % 22.3 D Monocytes % 28.0 H Eosinophils % 0.1 D Basophils % 0.7 Nucleated RBC % 0 Sodium Potassium Chloride Carbon Dioxide Anion Gap BUN Creatinine Est GFR (CKD-EPI)AfAm Est GFR (CKD-EPI)NonAf POC Glucometer 177 145 Random Glucose Calcium Total Bilirubin AST ALT Alkaline Phosphatase Total Protein Albumin 10/07/19 10/07/19 06:00 10:16 WBC RBC Hgb Hct MCV MCH MCHC RDW Plt Count MPV Absolute Neuts (auto) Neutrophils % Lymphocytes % Monocytes % Eosinophils % Basophils % Nucleated RBC % Sodium 136 Potassium 3.9 Chloride 103 Carbon Dioxide 28 Anion Gap 6 L BUN 14.1 Creatinine 1.1 Est GFR (CKD-EPI)AfAm 77.32 Est GFR (CKD-EPI)NonAf 66.71 POC Glucometer 226 Random Glucose 141 H Calcium 8.4 L Total Bilirubin 0.7 AST 83 H ALT 53 Alkaline Phosphatase 88 Total Protein 6.6 Albumin 3.1 L Active Medications Generic Name Dose Route Start Last Admin Trade Name Freq PRN Reason Stop Dose Admin Acetaminophen 1,000 mg 10/06/19 15:47 10/07/19 05:27 Tylenol - PO 1,000 mg Q6H PRN Administration FEVER Ezetimibe 10 mg 10/05/19 10:00 10/07/19 11:03 Zetia - PO 10 mg DAILY DEBBIE Administration Meropenem 1 gm/ Dextrose 100 mls @ 200 mls/hr 10/05/19 18:00 10/07/19 11:03 IVPB 200 mls/hr Q8H-IV DEBBIE Administration Lactated Ringer's 1,000 mls @ 100 mls/hr 10/06/19 17:52 10/07/19 06:18 Lactated Ringers Solution IV 100 mls/hr ASDIR DEBBIE Administration Insulin Aspart 1 vial 10/05/19 06:15 10/07/19 11:08 Novolog Vial Sliding Scale - SQ 4 units Q4HPO DEB[facility]E Administration Protocol Latanoprost 1 drop 10/05/19 22:00 10/06/19 22:00 Xalatan 0.005% Eye Drops - OU 1 drop HS DEBBIE Administration Non-Formulary Medication 1 drop 10/04/19 22:00 Brimonidine/Dorzolamide/Pf [Brimonidine 0.15%-Dorzolam 2%] OU BID DEBBIE Ondansetron HCl 4 mg 10/06/19 17:13 10/06/19 18:03 Zofran Injection IVPUSH 4 mg Q4H PRN Administration NAUSEA Polyethylene Glycol 17 gm 10/06/19 18:00 10/07/19 11:05 Miralax (For Daily Use) - PO 17 gm DAILY [facility] Administration Tamsulosin HCl 0.4 mg 10/05/19 11:54 10/07/19 08:18 Flomax - PO 0.4 mg DAILY@0830 [facility] Administration Microbiology 10/04/19 16:33 Urine - Urine Clean Catch Urine Culture - Final Contaminated: Please Repeat 10/04/19 16:50 Blood - Peripheral Venous Blood Culture - Preliminary NO GROWTH OBTAINED AFTER 48 HOURS, INCUBATION TO CONTINUE FOR 3 DAYS. 10/04/19 16:50 Blood - Peripheral Venous Blood Culture - Preliminary NO GROWTH OBTAINED AFTER 48 HOURS, INCUBATION TO CONTINUE FOR 3 DAYS. Culture contaminated and encourages us to repeat, but the patient has ready been on antibiotics. We will go ahead and discuss this with infectious disease and defer to them ASSESSMENT/PLAN: Patient is improving in terms of his fevers but is noted to have persisting thrombocytopenia, awaiting for final discussion with infectious disease to determine if he could be converted from meropenem to an oral agent. He failed nitrofurantoin as an outpatient. There is no hydronephrosis on repeat renal ultrasound. Problems include: Sepsis secondary to a urinary source, sepsis improved UTI with recent cystoscopy, pending urology evaluation. Mild left-sided hydronephrosis with hydroureter without obstruction as noted on CT scan. Disagrees with renal ultrasound. Considering follow-up imaging. BPH with calcification, uptitrating tamsulosin. Diabetes mellitus with hyperglycemia. Hypoalbuminemia History of hypertension, avoid antihypertensives in the setting of sepsis. Fecal retention, daily MiraLAX. Visit type - Emergency Visit Emergency Visit: No - New Patient This patient is new to me today: No - Critical Care Critical Care patient: No
--- NOTE | 2019-10-07 12:29 | PN ---
Progress Note (short form) - Note Progress Note: continues with intermittent fevers now with regular bowel movements frequent urination denies headache or cough renal sonogram no obstruction Vital Signs Period Temp Pulse Resp BP Sys/Balbuena Pulse Ox Last 24 Hr 98.6 F-101.3 F 92-98 16-20 146-160/90-98 97 cor-rrr lungs clear abd soft, protuberant ext no edema CBC, BMP 10/07/19 06:00 10/07/19 06:00 Microbiology 10/04/19 16:33 Urine - Urine Clean Catch Urine Culture - Final Contaminated: Please Repeat 10/04/19 16:50 Blood - Peripheral Venous Blood Culture - Preliminary NO GROWTH OBTAINED AFTER 48 HOURS, INCUBATION TO CONTINUE FOR 3 DAYS. 10/04/19 16:50 Blood - Peripheral Venous Blood Culture - Preliminary NO GROWTH OBTAINED AFTER 48 HOURS, INCUBATION TO CONTINUE FOR 3 DAYS. a/p bph s/p outpt cystoscopy per dr garcia fevers thrombocytopenia continue meropenem repeat blood cultures sent
[2019-10-07 12:44] LABS: ANISOCYTOSIS 1+; PLATELET ESTIMATE DECREASED; TEAR DROP CELLS 1+
[2019-10-07 12:53] LABS: BASO % 0.7 % (0-2.0); EOS % 0.1 % (0-4.5); HEMATOCRIT 37.2 % (35.4-49); HEMOGLOBIN 12.2 GM/dL (11.7-16.9); LYMPH % 23.3 % (8-40); MCH 26.2 pg (25.7-33.7); MCHC 32.8 g/dl (32.0-35.9); MEAN PLT VOLUME 8.4 fl (7.5-11.1); MONO % 22.6 % (3.8-10.2); NEUT % 53.3 % (42.8-82.8); PLATELET COUNT 59 K/MM3 (134-434); RBC 4.66 M/mm3 (4.00-5.60); RDW 19.9 % (11.9-15.9); WHITE BLOOD COUNT 3.4 K/mm3 (4.0-10.0)
[2019-10-07 13:51] LABS: ANISOCYTOSIS 1+; PLATELET ESTIMATE DECREASED
--- NOTE | 2019-10-07 19:16 | CONSULT ---
Consult Consult Specialty:: Hematology Referred by:: Medicine Reason for Consultation:: Thrombocytopenia - History of Present Illness Chief Complaint: Admitted with UTI, on Abics, with dropping platelet count noted in hospital. History of Present Illness: Recent TURP, complicated by UTI, admitted for continuation of antibiotics. Noted in addition to have decrement in renal function as well as liver transaminitis, all attributed to sepsis. Platelet count on admission 126 (3 days ago), following day 85, and today 59. Patient unaware of any prior episodes of thrombocytopenia. Denies history of easy bruising , bleeding. Exposed to several antibiotics last several days. No family history of hematological issues - History Source History Provided By: Patient, Medical Record - Past Medical History Endocrine: Yes: Diabetes Mellitus - Past Surgical History Past Surgical History: Yes: None - Alcohol/Substance Use Hx Alcohol Use: No History of Substance Use: reports: None - Smoking History Smoking history: Never smoked Have you smoked in the past 12 months: No - Social History Usual Living Arrangement: Alone ADL: Independent History of Recent Travel: No Home Medications - Allergies Allergies/Adverse Reactions: Allergies Allergy/AdvReac Type Severity Reaction Status Date / Time No Known Allergies Allergy Verified 10/04/19 16:17 - Home Medications Home Medications: Ambulatory Orders Canagliflozin [Invokana] 100 mg PO DAILY 11/12/16 Metformin HCl [Glucophage] 1,000 mg PO BID 11/12/16 Brimonidine/Dorzolamide/Pf [Brimonidine 0.15%-Dorzolam 2%] 1 drop OU BID Semaglutide [Ozempic] 2 mg SQ WEEKLY 08/16/19 Ezetimibe [Zetia] 10 mg PO DAILY 08/17/19 Insulin Lispro [Humalog] 12 unit SQ TID 08/17/19 Tamsulosin HCl [Flomax] 0.4 mg PO DAILY 08/17/19 Glipizide 10 mg PO BID 10/04/19 Latanoprost 0.005% Eye Drops [Xalatan 0.005% Eye Drops -] 1 drop AU HS 10/04/19 Review of Systems - Review of Systems Constitutional: reports: Chills, Fever HENT: reports: No Symptoms Neck: reports: No Symptoms Cardiovascular: reports: No Symptoms Respiratory: reports: No Symptoms Gastrointestinal: reports: No Symptoms Integumentary: denies: Bruising Hematology/Lymphatic: denies: Easily Bruised, Excessive Bleeding Physical Exam Vital Signs: Vital Signs Temperature 99.4 F 10/07/19 15:04 Pulse Rate 97 H 10/07/19 15:04 Respiratory Rate 18 10/07/19 15:04 Blood Pressure 138/74 10/07/19 15:04 O2 Sat by Pulse Oximetry (%) 98 10/07/19 09:00 Constitutional: Yes: Well Nourished, No Distress Eyes: Yes: Conjunctiva Clear HENT: Yes: Atraumatic, Normocephalic Neck: Yes: Trachea Midline. No: Decreased ROM, Lymphadenopathy Cardiovascular: Yes: S1, S2. No: Gallop, Murmur Respiratory: Yes: Regular, CTA Bilaterally Gastrointestinal: Yes: Normal Bowel Sounds Musculoskeletal: Yes: WNL Edema: No Integumentary: No: Petechiae ...Motor Strength: WNL Psychiatric: Yes: WNL Labs: CBC, BMP 10/07/19 12:25 10/07/19 06:00 Assessment/Plan Urinary sepsis, following TURP, on antibiotics Mild thrombocytopenia on admission 3 days ago, with dropping counts since. No other cell lines similarly affected. Peripheral smear reviewed. No clumping seen. Occasional giant platelets. Red cell morphology unremarkable, no red cell fragmentation. Thrombocytopenia is likely secondary, either due to sepsis, or possibly drug- related. If drug-related, since counts are stable, no change in regimen is warranted. If attributable to sepsis would expect improvement in counts. Ongoing observation only. HIT is unlikely, but would avoid heparin and heparinoids at present.
[2019-10-07] MEDS: LATANOPROST 0.005% OPHTH SOLN 2.5ML BOTTLE OU SCH (22:09)
[2019-10-08] MEDS ORDERED: MEROPENEM 1 GM VIAL (RESTRICTED TO ID) IVPB ONE ×4 (00:45→16:50)
[2019-10-08] MEDS ORDERED: DEXTROSE 5%-WATER 100 ML IVPB ONE ×4 (00:46→16:50)
[2019-10-08] MEDS: MEROPENEM 1 GM in DEXTROSE 5%-WATER 100 ML IVPB SCH ×3 (01:07→17:44)
[2019-10-08] MEDS: INSULIN SLIDING SCALE (NOVOLOG) 1 VIAL SQ SCH ×6 (02:03→21:13)
[2019-10-08] MEDS: ONDANSETRON 4 MG/2 ML VIAL IVPUSH PRN (06:38)
[2019-10-08] MEDS: LACTATED RINGERS SOLUTION 1,000 ML IV SCH ×4 (06:39→21:17)
[2019-10-08 08:38] LABS: HEMATOCRIT 33.9 % (35.4-49); HEMOGLOBIN 11.3 GM/dL (11.7-16.9); MCH 26.1 pg (25.7-33.7); MCHC 33.2 g/dl (32.0-35.9); MEAN CELL VOLUME 78.5 fl (80-96); MEAN PLT VOLUME 8.5 fl (7.5-11.1); PLATELET COUNT 67 K/MM3 (134-434); RBC 4.32 M/mm3 (4.00-5.60); RDW 20.3 % (11.9-15.9); WHITE BLOOD COUNT 3.4 K/mm3 (4.0-10.0)
[2019-10-08] MEDS ORDERED: PT OWN MED DRAWER 7, Y5N ONE (10:27)
[2019-10-08] MEDS: EZETIMIBE 10 MG TABLET (FP) PO SCH (10:38)
[2019-10-08] MEDS: TAMSULOSIN HCL 0.4 MG CAP PO SCH (10:38)
[2019-10-08] MEDS ORDERED: INSULIN (NOVOLOG) ASPART 100 UNITS/ML 10ML VIAL ONE ×2 (11:33→18:01)
[2019-10-08 12:25] LABS: URINE APPEARANCE Clear; URINE BILIRUBIN Negative (NEGATIVE); URINE COLOR Yellow; URINE GLUCOSE (UA) 2+ (NEGATIVE); URINE KETONE 1+ (NEGATIVE); URINE LEUK ESTERASE Negative (NEGATIVE); URINE NITRITE Negative (NEGATIVE); URINE PROTEIN 1+ (NEGATIVE); URINE UROBILINOGEN 0.2 mg/dL (0.2-1.0)
--- NOTE | 2019-10-08 12:33 | PN ---
Progress Note (short form) - Note Progress Note: fevers resolving feels better denies headache or cough renal sonogram no obstruction Vital Signs Period Temp Pulse Resp BP Sys/Balbuena Pulse Ox Last 24 Hr 98.4 F-100.4 F 85-99 17-20 131-138/71-74 96-98 cor-rrr lungs clear abd soft,nt ext no edema CBC, BMP 10/08/19 08:15 10/07/19 06:00 Microbiology 10/07/19 06:00 Blood - Peripheral Venous Blood Culture - Preliminary NO GROWTH OBTAINED AFTER 24 HOURS, INCUBATION TO CONTINUE FOR 4 DAYS. 10/07/19 06:00 Blood - Peripheral Venous Blood Culture - Preliminary NO GROWTH OBTAINED AFTER 24 HOURS, INCUBATION TO CONTINUE FOR 4 DAYS. 10/07/19 11:25 Urine - Urine Clean Catch Urine Culture - Final NO GROWTH OBTAINED 10/04/19 16:50 Blood - Peripheral Venous Blood Culture - Preliminary NO GROWTH OBTAINED AFTER 72 HOURS, INCUBATION TO CONTINUE FOR 2 DAYS. 10/04/19 16:50 Blood - Peripheral Venous Blood Culture - Preliminary NO GROWTH OBTAINED AFTER 72 HOURS, INCUBATION TO CONTINUE FOR 2 DAYS. 10/04/19 16:33 Urine - Urine Clean Catch Urine Culture - Final Contaminated: Please Repeat a/p bph s/p outpt cystoscopy per dr garcia fevers-felt to be secondary to source (s/p cysto) thrombocytopenia continue meropenem repeat blood cultures pending platelest starting to improve
[2019-10-08 12:37] LABS: EPI CELLS 2.2 /HPF (0-5/HPF); HYALINE CASTS 1.86 /lpf (0-8); URINE BACTERIA 1.4 /hpf (NEGATIVE); URINE RBC 3.2 /hpf (0-4); URINE WBC 0.9 /hpf (0-5)
[2019-10-08] MEDS: PHENAZOPYRIDINE HCL 100 MG TABLET (FP) PO SCH ×3 (13:17→17:55)
--- NOTE | 2019-10-08 14:31 | PN ---
Physical Exam: SUBJECTIVE: Patient seen and examined. No acute events overnight. Patient had a 100.4F fever last night which improved after medication. Complains of burning pain when urinating. OBJECTIVE: Vital Signs Period Temp Pulse Resp BP Sys/Balbuena Pulse Ox Last 24 Hr 98.4 F-100.4 F 85-99 17-20 131-138/71-74 96-98 GENERAL: The patient is awake, alert, and fully oriented, in no acute distress. NECK: supple. LUNGS: Breath sounds equal, clear to auscultation bilaterally, no wheezes, no crackles, no accessory muscle use. HEART: Regular rate and rhythm, S1, S2 without murmur, rub or gallop. ABDOMEN: Soft, nontender, nondistended : normal prostate exam, no abnormalities felt. RECTAL: no external hemorrhoids noted, no teresita blood. brown stool on gloved finger. normal rectal tone EXTREMITIES: 2+ pulses, warm, well-perfused, no edema. NEUROLOGICAL: Normal speech, gait not observed. PSYCH: Normal mood, normal affect. SKIN: Warm, dry skin on back, no rashes or lesions noted Laboratory Results - last 24 hr 10/07/19 10/07/19 10/07/19 12:25 15:38 18:17 WBC RBC Hgb Hct MCV MCH MCHC RDW Plt Count MPV POC Glucometer 188 249 Urine Color Urine Appearance Urine pH Ur Specific [place] Urine Protein Urine Glucose (UA) Urine Ketones Urine Blood Urine Nitrite Urine Bilirubin Urine Urobilinogen Ur Leukocyte Esterase Urine WBC (Auto) Urine RBC (Auto) Urine Casts (Auto) U Epithel Cells (Auto) Urine Bacteria (Auto) Hep C Ab Diagnostic <0.1 HIV 1&2 Ag/Ab, 4th Gen Non reactive 10/07/19 10/08/19 10/08/19 20:55 02:02 05:33 WBC RBC Hgb Hct MCV MCH MCHC RDW Plt Count MPV POC Glucometer 157 138 132 Urine Color Urine Appearance Urine pH Ur Specific [place] Urine Protein Urine Glucose (UA) Urine Ketones Urine Blood Urine Nitrite Urine Bilirubin Urine Urobilinogen Ur Leukocyte Esterase Urine WBC (Auto) Urine RBC (Auto) Urine Casts (Auto) U Epithel Cells (Auto) Urine Bacteria (Auto) Hep C Ab Diagnostic HIV 1&2 Ag/Ab, 4th Gen 10/08/19 10/08/19 10/08/19 08:15 11:32 11:50 WBC 3.4 L RBC 4.32 Hgb 11.3 L Hct 33.9 L MCV 78.5 L MCH 26.1 MCHC 33.2 RDW 20.3 H Plt Count 67 L MPV 8.5 POC Glucometer 218 Urine Color Yellow Urine Appearance Clear Urine pH 7.0 D Ur Specific [place] 1.015 Urine Protein 1+ H Urine Glucose (UA) 2+ H Urine Ketones 1+ H Urine Blood 2+ H Urine Nitrite Negative Urine Bilirubin Negative Urine Urobilinogen 0.2 Ur Leukocyte Esterase Negative Urine WBC (Auto) 0.9 Urine RBC (Auto) 3.2 Urine Casts (Auto) 1.86 U Epithel Cells (Auto) 2.2 Urine Bacteria (Auto) 1.4 Hep C Ab Diagnostic HIV 1&2 Ag/Ab, 4th Gen Active Medications Generic Name Dose Route Start Last Admin Trade Name Freq PRN Reason Stop Dose Admin Acetaminophen 1,000 mg 10/06/19 15:47 10/07/19 22:08 Tylenol - PO 1,000 mg Q6H PRN Administration FEVER Ezetimibe 10 mg 10/05/19 10:00 10/08/19 10:38 Zetia - PO 10 mg DAILY DEBBIE Administration Meropenem 1 gm/ Dextrose 100 mls @ 200 mls/hr 10/05/19 18:00 10/08/19 10:38 IVPB 200 mls/hr Q8H-IV DEBBIE Administration Lactated Ringer's 1,000 mls @ 100 mls/hr 10/06/19 17:52 10/08/19 10:39 Lactated Ringers Solution IV 100 mls/hr ASDIR DEBBIE Administration Insulin Aspart 1 vial 10/05/19 06:15 10/08/19 11:35 Novolog Vial Sliding Scale - SQ 4 units Q4HPO DEBBIE Administration Protocol Latanoprost 1 drop 10/05/19 22:00 10/07/19 22:09 Xalatan 0.005% Eye Drops - OU 1 drop HS DEBBIE Administration Non-Formulary Medication 1 drop 10/04/19 22:00 Brimonidine/Dorzolamide/Pf [Brimonidine 0.15%-Dorzolam 2%] OU BID DEBBIE Ondansetron HCl 4 mg 10/06/19 17:13 10/08/19 06:38 Zofran Injection IVPUSH 4 mg Q4H PRN Administration NAUSEA Phenazopyridine HCl 100 mg 10/08/19 09:00 10/08/19 13:17 Pyridium - PO 100 mg PC DEBBIE Administration Tamsulosin HCl 0.4 mg 10/05/19 11:54 10/08/19 10:38 Flomax - PO 0.4 mg DAILY@0830 DEBBIE Administration ASSESSMENT/PLAN: 74 y/o/m with PMHx of DM, HTN, HLD, and BPH, and a recent TURP procedure admitted for sepsis secondary to UTI due to recent instrumentation. Sepsis secondary to UTI - recent cystoscopy done a few weeks back per Uro - febrile to 100.4F yesterday night - normalized lactate - continue meropenem 500mg BID as per ID - c/w LR 100mls/hr - Initial urine culture contaminated, repeat Urine cx negative to date - CT abd/pelvis noting Left renal hydro but per uro its chronic 2/2 BPH. No obstructing calculus. - urology Dr. SAUL Thapa would like him to f/u as o/p. Pt sent home on macrobid for 10 days post cysto for UTI coverage. Await UA cultures. - repeat UA 10/08 showing 1+ protein, 2+ glucose, 1+ ketones, 2+ blood, 0.9 WBC, 1.4 bacteria - Repeat blood cultures negative to date LIDIA - baseline CRE 1.1-1.3 - pre-renal likely in setting of sepsis given FeNA less than 1% - PVR initially increased and will rpt - I+Os - weights Elevated Liver Enzymes - likely in setting of sepsis - continue hydration - monitor for resolution DM - BGM Q4H - ISS Q4H - can decrease rate of checks as BGMs improve - A1c 7 - Pt on Ozempic on fridays, will hold while in the hospital Thrombocytopenia - likely component of sepsis - continue to monitor, today showing slight improvement - HIT unlikely as per Heme/Onc but would avoid heparin and Heparinoids HLD - continue home Zetia BPH - continue home tamsulosin 0.4, d/w uro who does not think increasing flomax will improve his BPH. DVT PPx - SCD's FEN - LR at 100 cc/hr, encourage PO intake - continue to monitor electrolytes and replete as necessary - diabetic/sodium/fat controlled diet Dispo - D/C with clinical improvement, likely tomorrow if afebrile for >24 hours and pending abx recs Visit type - Emergency Visit Emergency Visit: Yes ED Registration Date: 10/04/19 Care time: The patient presented to the Emergency Department on the above date and was hospitalized for further evaluation of their emergent condition. - New Patient This patient is new to me today: No - Critical Care Critical Care patient: No ATTENDING PHYSICIAN STATEMENT I saw and evaluated the patient. I reviewed the resident's note and discussed the case with the resident. I agree with the resident's findings and plan as documented. SUBJECTIVE: OBJECTIVE: ASSESSMENT AND PLAN:
--- NOTE | 2019-10-08 17:03 | PN ---
Progress Note (short form) - Note Progress Note: Seen in follow up. No events overnight. Comfortable. Inpatient meds reviewed: Current Medications Acetaminophen (Tylenol -) 1,000 mg PO Q6H PRN PRN Reason: FEVER Last Admin: 10/07/19 22:08 Dose: 1,000 mg Ezetimibe (Zetia -) 10 mg PO DAILY [facility] Last Admin: 10/08/19 10:38 Dose: 10 mg Meropenem 1 gm/ Dextrose 100 mls @ 200 mls/hr IVPB Q8H-IV [facility] Last Admin: 10/08/19 10:38 Dose: 200 mls/hr Lactated Ringer's (Lactated Ringers Solution) 1,000 mls @ 100 mls/hr IV ASDIR [facility] Last Admin: 10/08/19 10:39 Dose: 100 mls/hr Insulin Aspart (Novolog Vial Sliding Scale -) 1 vial SQ Q4HPO [facility]; Protocol Last Admin: 10/08/19 15:21 Dose: 2 units Latanoprost (Xalatan 0.005% Eye Drops -) 1 drop OU HS [facility] Last Admin: 10/07/19 22:09 Dose: 1 drop Non-Formulary Medication (Brimonidine/Dorzolamide/Pf [Brimonidine 0.15%- Dorzolam 2%]) 1 drop OU BID DEBBIE Ondansetron HCl (Zofran Injection) 4 mg IVPUSH Q4H PRN PRN Reason: NAUSEA Last Admin: 10/08/19 06:38 Dose: 4 mg Phenazopyridine HCl (Pyridium -) 100 mg PO PC [facility] Last Admin: 10/08/19 13:17 Dose: 100 mg Tamsulosin HCl (Flomax -) 0.4 mg PO DAILY@0830 [facility] Last Admin: 10/08/19 10:38 Dose: 0.4 mg On Examination: Last Vital Signs Temp Pulse Resp BP Pulse Ox 98.6 F 93 H 17 151/77 96 10/08/19 15:27 10/08/19 15:27 10/08/19 15:27 10/08/19 15:27 10/08/19 09:00 General: In no acute distress, supine in bed. No pallor or icterus. CVS: S1, S2, no gallop or murmur. Chest: breathing comfortably, clear. Abdomen: non-distended, non-tender Neuro: Alert, oriented. Non-focal Labs: CBC, BMP 10/08/19 08:15 10/07/19 06:00 Assessment. Urinary sepsis, following TURP, on antibiotics Mild thrombocytopenia on admission 3 days ago, with dropping counts since. No other cell lines similarly affected. Peripheral smear reviewed. No clumping seen. Occasional giant platelets. Red cell morphology unremarkable, no red cell fragmentation. Thrombocytopenia is likely secondary, either due to sepsis, or possibly drug- related. If drug-related, since counts are stable, no change in regimen is warranted. Today platelet count improved, as expected. Continue observation only. HIT is unlikely, but would avoid heparin and heparinoids at present.
--- NOTE | 2019-10-08 17:27 | PN ---
Teaching Attending Note Name of Resident: Stella Rod ATTENDING PHYSICIAN STATEMENT I saw and evaluated the patient. I reviewed the resident's note and discussed the case with the resident. I agree with the resident's findings and plan as documented. Seen and examined; please see resident note for further historical information. I personally verified all david historical information and exam findings. Personally interpreted all imaging and diagnostics and reviewed appropriate consults. I reviewed all labs and vital signs as per resident note and EMR as documented. I agree with the above assessment and plan unless supplemented by myself in the following. No new events overnight, agree with subjective information as listed in the resident note 10 item review of systems completed and is negative aside from as discussed in the subjective data in my own/the resident documentation. VS, labs, imaging reviewed NAD, AAO, resting comfortably in bed. RRR s1/2 no mgr Normal muscle tone, moves all 5 extremities with normal apparent strength Neck is supple, trachea midline, no teresita LN Lungs CTAB with sym expansion NT ND +BS no teresita organomegaly CN2-12 wnl; no FND NC AT EOMI PERRLA Normal mood, appropriate behavior, euthymic affect No skin breakdown or rashes noted Assessment and plan: Seen and examined, noted input from hematology and oncology regarding the underlying thrombocytopenia. Ralls to be secondary to sepsis with it being unlikely. May also be secondary to drug but less likely due to the count stabilizing. Infectious disease continues to follow. Remains on meropenem Problems include: Sepsis secondary to a urinary source, sepsis improved UTI with recent cystoscopy Hydronephrosis, not present on repeat imaging BPH with calcification, Continue current dose of tamsulosin Diabetes mellitus with hyperglycemia. Hypoalbuminemia History of hypertension, avoid antihypertensives in the setting of sepsis. Fecal retention, Improved, move MiraLAX to as needed Full code
[2019-10-08] MEDS: LATANOPROST 0.005% OPHTH SOLN 2.5ML BOTTLE OU SCH (21:14)
[2019-10-08] MEDS: ACETAMINOPHEN 500 MG TABLET (FP) PO PRN (21:19)
[2019-10-09] MEDS ORDERED: MEROPENEM 1 GM VIAL (RESTRICTED TO ID) IVPB ONE ×2 (00:18→09:56)
[2019-10-09] MEDS ORDERED: DEXTROSE 5%-WATER 100 ML IVPB ONE ×2 (00:18→09:56)
[2019-10-09] MEDS: INSULIN SLIDING SCALE (NOVOLOG) 1 VIAL SQ SCH ×3 (02:01→11:43)
[2019-10-09] MEDS: MEROPENEM 1 GM in DEXTROSE 5%-WATER 100 ML IVPB SCH ×2 (02:01→10:07)
[2019-10-09] MEDS: TAMSULOSIN HCL 0.4 MG CAP PO SCH (08:15)
[2019-10-09] MEDS: LACTATED RINGERS SOLUTION 1,000 ML IV SCH (08:16)
[2019-10-09 08:46] LABS: HEMATOCRIT 32.5 % (35.4-49); HEMOGLOBIN 10.8 GM/dL (11.7-16.9); MCH 26.1 pg (25.7-33.7); MCHC 33.3 g/dl (32.0-35.9); MEAN CELL VOLUME 78.3 fl (80-96); MEAN PLT VOLUME 8.4 fl (7.5-11.1); PLATELET COUNT 86 K/MM3 (134-434); RBC 4.15 M/mm3 (4.00-5.60); RDW 19.9 % (11.9-15.9)
[2019-10-09] MEDS: PHENAZOPYRIDINE HCL 100 MG TABLET (FP) PO SCH ×2 (09:07→12:57)
[2019-10-09] MEDS ORDERED: PT OWN MED DRAWER 7, Y5N ONE ×2 (09:57→12:56)
[2019-10-09] MEDS: EZETIMIBE 10 MG TABLET (FP) PO SCH (10:07)
[2019-10-09 10:45] VITALS: BP 139/84; PULSE 82; TEMP 98.2
[2019-10-09] MEDS ORDERED: INSULIN (NOVOLOG) ASPART 100 UNITS/ML 10ML VIAL ONE (11:56)
--- NOTE | 2019-10-09 17:08 | DS ---
Physical Exam: SUBJECTIVE: Patient seen and examined. Patient states that he feels better. Denies abd pain, chest pain, SOB, fever, chills. OBJECTIVE: Vital Signs Period Temp Pulse Resp BP Sys/Balbuena Pulse Ox Last 24 Hr 98.2 F-98.9 F 82-90 18-20 139-155/84-90 97-97 PHYSICAL EXAM GENERAL: The patient is awake, alert, and fully oriented, in no acute distress. NECK: supple. LUNGS: Breath sounds equal, clear to auscultation bilaterally, no wheezes, no crackles, no accessory muscle use. HEART: Regular rate and rhythm, S1, S2 without murmur, rub or gallop. ABDOMEN: Soft, nontender, nondistended EXTREMITIES: 2+ pulses, warm, well-perfused, no edema. NEUROLOGICAL: Normal speech, gait not observed. PSYCH: Normal mood, normal affect. SKIN: Warm, dry skin on back, no rashes or lesions noted LABS Laboratory Results - last 24 hr 10/08/19 10/08/19 10/09/19 17:49 21:13 05:34 WBC RBC Hgb Hct MCV MCH MCHC RDW Plt Count MPV POC Glucometer 184 183 146 10/09/19 10/09/19 08:00 11:42 WBC 3.0 L RBC 4.15 Hgb 10.8 L Hct 32.5 L MCV 78.3 L MCH 26.1 MCHC 33.3 RDW 19.9 H Plt Count 86 L D MPV 8.4 POC Glucometer 219 HOSPITAL COURSE: Date of Admission:10/04/19 Date of Discharge: 10/09/19 74 y/o/m with PMHx of DM, HTN, HLD, and BPH, and a recent TURP procedure admitted for sepsis secondary to UTI due to recent instrumentation. Patient was diagnosed with sepsis secondary to UTI and was started on Meropenem. Patient discharged on Bactrim double strength twice daily for [address] abd/pelvis noted left renal hydro but per uro this is chronic 2/2 BPH. No obstructing calculus was seen. Patient was seen by Dr. Celeste, Urology, and recommended follow up after discharge but no acute intervention needed at this time. Repeat UA cultures did not grow bacteria. Patient noted to be thrombocytopenic during admission, likely secondary to sepsis, improving at time of discharge. Instructed to have blood work repeated in 1 week. Home medications were continued appropriately. Patient stable for discharge with appropriate follow up and medication recommendations. Minutes to complete discharge: 36 Discharge Summary Problems reviewed: Yes Reason For Visit: UTI DM SEPSIS Current Active Problems Myalgia (Acute) Sepsis (Acute) UTI (urinary tract infection) (Acute) Vomiting (Acute) Weakness (Acute) Condition: Improved - Instructions Diet, Activity, Other Instructions: You presented to the hospital due to fever and feeling weak after having a recent procedure done by Dr. Celeste. You were diagnosed with a UTI and were started on antibiotics with improvement. You were seen by Dr. Celeste while admitted who recommended following up in his office after you are discharged. You are being discharged with continuing antibiotics for the next week. Your platelet count was noted to be decreased during this admission, we recommend having your blood work checked to make sure that your platelet count continues to improve after discharge. Medication Changes: 1. START Bactrim twice daily for 7 days for continuing antibiotic coverage. Follow up lab work: 1. Please have your blood count repeated in one week for further monitoring of your white blood cell count and platelet count. Follow up with the following physicians: 1. Please follow up with your primary care provider within 3-5 days of discharge for further management of your medical conditions and to discuss the medications that were started while you were in the hospital. 2. Please follow up with Dr. Celeste, Urology, one week after discharge for further management of your medical conditions. Activity and Diet 1. Please monitor your diet as your need to consume a diet low in fats and sugars and continue to drink plenty of fluids. 2. You are being discharged home, recommend daily exercise to strengthen your muscles. Continue all your other medications as prescribed Please return to the ER if you have any signs or symptoms of chest pain, shortness of breath, uncontrollable fever, chills, nausea, vomiting, numbness, tingling, or weakness in any part of your body, changes in vision, or slurred speech. Please return to the ER if symptoms persist, worsen, or new symptoms arise. Referrals: Mikie Clement MD [Primary Care Provider] - Alphonso Celeste MD [Staff Physician] - Disposition: HOME - Home Medications Comprehensive Discharge Medication List: Ambulatory Orders Canagliflozin [Invokana] 100 mg PO DAILY 11/12/16 Metformin HCl [Glucophage] 1,000 mg PO BID 11/12/16 Brimonidine/Dorzolamide/Pf [Brimonidine 0.15%-Dorzolam 2%] 1 drop OU BID Semaglutide [Ozempic] 2 mg SQ WEEKLY 08/16/19 Ezetimibe [Zetia] 10 mg PO DAILY 08/17/19 Insulin Lispro [Humalog] 12 unit SQ TID 08/17/19 Tamsulosin HCl [Flomax] 0.4 mg PO DAILY 08/17/19 Glipizide 10 mg PO BID 10/04/19 Latanoprost 0.005% Eye Drops [Xalatan 0.005% Eye Drops -] 1 drop AU HS 10/04/19 Sulfamethoxazole/Trimethoprim [Bactrim Ds -] 1 tab PO BID #14 tablet 10/09/19 This patient is new to me today: Yes Date on this admission: 10/09/19 Emergency Visit: No Critical Care patient: No - Discharge Referral Referred to [facility] No ATTENDING PHYSICIAN STATEMENT I saw and evaluated the patient. I reviewed the resident's note and discussed the case with the resident. I agree with the resident's findings and plan as documented. SUBJECTIVE: OBJECTIVE: ASSESSMENT AND PLAN:
== END 2019-10-09 17:55 | disposition home or self-care (01) | DRG 862 ==
LOC: SUPCPDRO 16:08 → JER 16:08 → JERBED 18:42 → J6S 23:32
PROVIDERS: ADMIT Internal Medicine; ATTEND Internal Medicine
DX: T81.40XA Infection following a procedure, unspecified, initial encounter (principal); A41.89 Other specified sepsis; N39.0 Urinary tract infection, site not specified; N17.9 Acute kidney failure, unspecified; E87.2 Acidosis; N13.30 Unspecified hydronephrosis; T81.44XA Sepsis following a procedure, initial encounter; I10 Essential (primary) hypertension; E78.5 Hyperlipidemia, unspecified; N40.0 Benign prostatic hyperplasia without lower urinary tract symptoms; R50.9 Fever, unspecified; R11.2 Nausea with vomiting, unspecified; D69.6 Thrombocytopenia, unspecified; E11.65 Type 2 diabetes mellitus with hyperglycemia; E88.09 Other disorders of plasma-protein metabolism, not elsewhere classified; K59.00 Constipation, unspecified; R00.0 Tachycardia, unspecified
CPT/HCPCS: 36415; 71045-TC-FY; 74019-TC-FY; 74176-TC; 76775-TC; 76856-TC; 80053; 81003; 82436; 82565; 82803; 82962; 83036; 83605; 83735; 84100; 84133; 84300; 84484; 85025; 85027; 85610; 85730; 86803; 87040; 87086; 87389; 87804; 93005; 93010; 97116-GP; 97162-GP; 99282-25; J0131; J1644

== ENCOUNTER 2020-12-17 13:29 | Inpatient (IN) | payer OTHER ==
[2020-12-17] MEDS ORDERED: SODIUM CHLORIDE 1,000 ML IV STA (14:25)
[2020-12-17] MEDS ORDERED: ACETAMINOPHEN 1000 MG/100 ML VIAL (NON FORMULARY) IVPB ONE (14:25)
[2020-12-17] MEDS ORDERED: ACETAMINOPHEN INJECTION 100 ML IVPB ONE (14:44)
[2020-12-17 15:37] LABS: VENOUS BASE EXCESS -0.9 mmol/L (-2-2); VENOUS O2 SATURATION 76.8 % (70-80); VENOUS PCO2 38.8 mmHg (38-52); VENOUS PH 7.402 (7.310-7.410)
[2020-12-17 15:39] LABS: BASO % 0.6 % (0-2.0); EOS % 0.1 % (0-4.5); HEMATOCRIT 47.8 % (35.4-49); HEMOGLOBIN 16.1 GM/dL (11.7-16.9); LYMPH % 8.1 % (8-40); MCH 28.4 pg (25.7-33.7); MCHC 33.8 g/dl (32.0-35.9); MEAN PLT VOLUME 7.6 fl (7.5-11.1); MONO % 4.2 % (3.8-10.2); PLATELET COUNT 77 K/MM3 (134-434); RBC 5.69 M/mm3 (4.00-5.60); RDW 18.3 % (11.9-15.9); WHITE BLOOD COUNT 4.7 K/mm3 (4.0-10.0)
[2020-12-17 15:45] LABS: INR 1.28 (0.83-1.09); PROTHROMBIN TIME (PATIENT) 15.6 SEC (9.7-13.0)
[2020-12-17 15:48] LABS: ACTIVATED PTT 25.5 SECONDS (25.2-36.5)
[2020-12-17 15:56] LABS: CHLORIDE 101 mmol/L (98-107); SODIUM 135 mmol/L (136-145)
[2020-12-17 15:58] LABS: CALCIUM 8.9 mg/dL (8.5-10.1)
[2020-12-17 15:59] LABS: ALBUMIN 4.3 g/dl (3.4-5.0); ANION GAP 9 MMOL/L (8-16); BLOOD UREA NITROGEN 18.4 mg/dL (7-18); CO2 25 mmol/L (21-32); GLUCOSE,RANDOM 202 mg/dL (74-106)
[2020-12-17 16:02] LABS: CREATININE 1.7 mg/dL (0.55-1.3); SGOT/AST 192 U/L (15-37); SGPT/ALT 121 U/L (13-61)
[2020-12-17 16:03] LABS: TOT PROT 8.1 g/dl (6.4-8.2)
[2020-12-17 16:04] LABS: BILIRUBIN,TOTAL 1.2 mg/dL (0.2-1)
[2020-12-17 16:05] LABS: ALK PHOS 116 U/L (45-117)
[2020-12-17 16:13] LABS: EPI CELLS 3 /uL (0-25.1); HYALINE CASTS 0 /uL (0-3.1); URINE APPEARANCE CLOUDY; URINE BACTERIA 47 /uL (0-1359); URINE BILIRUBIN NEGATIVE (NEGATIVE); URINE COLOR YELLOW; URINE GLUCOSE (UA) 3+ (NEGATIVE); URINE KETONE TRACE (NEGATIVE); URINE LEUK ESTERASE NEGATIVE (NEGATIVE); URINE NITRITE NEGATIVE (NEGATIVE); URINE PROTEIN 2+ (NEGATIVE); URINE UROBILINOGEN 0.2 mg/dL (0.2-1.0)
[2020-12-17 16:17] LABS: LACTIC ACID 2.5 mmol/L (0.4-2.0)
[2020-12-17] MEDS ORDERED: PIPERACILLIN/TAZOB 2.25 GM 2.25 GM in DEXTROSE 5%-WATER - 50 ML IVPB ONE (18:14)
[2020-12-17 18:33] LABS: URINE RBC 120.2 /uL (0-23.9); URINE WBC 1932.9 /uL (0-25.8); YEAST MODERATE (NEGATIVE)
[2020-12-17] MEDS ORDERED: VANCOMYCIN 1,000 MG in DEXTROSE 5%-WATER - 250 ML IVPB ONE (19:29)
[2020-12-17] MEDS ORDERED: PIPERACILLIN/TAZOB 2.25 GM 2.25 GM/50 ML BAG IVPB ONE (19:29)
[2020-12-17 20:32] LABS: LACTIC ACID 2.2 mmol/L (0.4-2.0)
[2020-12-17] MEDS ORDERED: VANCOMYCIN 1 GRAM (PRE-DOCKED) 1,000 MG/250 ML BAG IVPB ONE (20:50)
[2020-12-17] MEDS ORDERED: SODIUM CHLORIDE 0.9% 500 ML INFUS.BAG IV ONE (21:43)
[2020-12-18] MEDS ORDERED: SODIUM CHLORIDE 1,000 ML IV SCH (01:00)
[2020-12-18] MEDS ORDERED: ACETAMINOPHEN 1000 MG/100 ML VIAL (NON FORMULARY) IVPB ONE ×2 (01:13→17:02)
[2020-12-18] MEDS ORDERED: ACETAMINOPHEN INJECTION 100 ML IVPB ONE (01:18)
[2020-12-18] MEDS ORDERED: PIPERACILLIN/TAZOB 4.5 GM 4.5 GM in DEXTROSE 5%-WATER 100 ML IVPB SCH (01:30)
[2020-12-18] MEDS ORDERED: PIPERACILLIN/TAZOB 3.375 GM 3.375 GM in DEXTROSE 5%-WATER - 50 ML IVPB SCH (02:00)
[2020-12-18] MEDS ORDERED: HEPARIN NA (PORCINE) 5,000 UNITS/ML 1ML VIAL SQ SCH (06:00)
[2020-12-18] MEDS: PIPERACILLIN/TAZOB 3.375 GM 3.375 GM/50 ML BAG IVPB SCH ×3 (06:43→15:34)
[2020-12-18 07:56] LABS: HEMATOCRIT 44.3 % (35.4-49); HEMOGLOBIN 14.9 GM/dL (11.7-16.9); MCH 28.5 pg (25.7-33.7); MCHC 33.6 g/dl (32.0-35.9); MEAN CELL VOLUME 84.8 fl (80-96); MEAN PLT VOLUME 7.7 fl (7.5-11.1); PLATELET COUNT 54 K/MM3 (134-434); RBC 5.22 M/mm3 (4.00-5.60); RDW 18.7 % (11.9-15.9); WHITE BLOOD COUNT 4.1 K/mm3 (4.0-10.0)
[2020-12-18 08:13] LABS: CALCIUM 8.4 mg/dL (8.5-10.1)
[2020-12-18 08:14] LABS: ALBUMIN 3.7 g/dl (3.4-5.0); BLOOD UREA NITROGEN 18.3 mg/dL (7-18)
[2020-12-18 08:15] LABS: MAGNESIUM 2.7 mg/dL (1.8-2.4)
[2020-12-18 08:17] LABS: CREATININE 1.5 mg/dL (0.55-1.3); PHOSPHOROUS 3.6 mg/dL (2.5-4.9)
[2020-12-18 08:18] LABS: BILIRUBIN,TOTAL 1.1 mg/dL (0.2-1); TOT PROT 7.2 g/dl (6.4-8.2)
[2020-12-18] MEDS: INSULIN SLIDING SCALE (NOVOLOG) 1 VIAL SQ SCH ×4 (08:31→21:42)
[2020-12-18 08:46] LABS: LACTIC ACID 2.5 mmol/L (0.4-2.0)
[2020-12-18] MEDS ORDERED: TAMSULOSIN HCL 0.4 MG CAP ONE (09:53)
[2020-12-18] MEDS ORDERED: ENOXAPARIN NA (PORCINE) 40 MG/0.4 ML DISP.SYRIN SQ SCH (10:00)
[2020-12-18] MEDS: ENOXAPARIN NA (PORCINE) 40 MG/0.4 ML DISP.SYRIN SQ SCH (11:02)
[2020-12-18] MEDS: DOCUSATE SODIUM 100 MG CAPSULE (FP) PO SCH ×2 (11:02→21:36)
[2020-12-18] MEDS: TAMSULOSIN HCL 0.4 MG CAP PO SCH (11:02)
[2020-12-18] MEDS ORDERED: DOCUSATE SODIUM 100 MG CAPSULE (FP) PO ONE (11:04)
[2020-12-18] MEDS ORDERED: ENOXAPARIN NA (PORCINE) 40 MG/0.4 ML DISP.SYRIN SQ ONE (11:04)
[2020-12-18 16:33] VITALS: BMI 29.9
[2020-12-18] MEDS ORDERED: PT OWN MED DRAWER 7, Y5N ONE (20:28)
[2020-12-18] MEDS: DORZOLAMIDE 2% HCL OPHTHALMIC SOLUTION 10 ML BOTTLE OU SCH (21:36)
[2020-12-18] MEDS: BRIMONIDINE TARTRATE 0.15% OPHTHALMIC 5 ML BOTTLE OU SCH (21:36)
[2020-12-18] MEDS ORDERED: PATIENT'S OWN MEDICATION (NON-FORMULARY) (Brimonidine/Dorzolamide/Pf [Brimonidine 0.15%-Do OU SCH (22:00)
[2020-12-18] MEDS ORDERED: VANCOMYCIN 1 GRAM (PRE-DOCKED) 1 MG/0.25 ML BAG IVPB SCH (22:00)
[2020-12-19] MEDS ORDERED: PIPERACILLIN/TAZOBACTAM 3.375 GM VIAL IVPB ONE ×4 (03:23→20:27)
[2020-12-19] MEDS ORDERED: DEXTROSE 5%-WATER - 50 ML IVPB ONE ×4 (03:23→20:27)
[2020-12-19] MEDS: PIPERACILLIN/TAZOB 3.375 GM 3.375 GM in DEXTROSE 5%-WATER - 3.375 GM/50 ML IVPB IVPB SCH ×4 (03:32→21:15)
[2020-12-19] MEDS: INSULIN SLIDING SCALE (NOVOLOG) 1 VIAL SQ SCH ×4 (07:53→21:18)
[2020-12-19 07:55] LABS: BASO % 0.5 % (0-2.0); EOS % 0.2 % (0-4.5); HEMATOCRIT 40.3 % (35.4-49); HEMOGLOBIN 13.7 GM/dL (11.7-16.9); LYMPH % 30.2 % (8-40); MCH 28.7 pg (25.7-33.7); MCHC 34.1 g/dl (32.0-35.9); MEAN CELL VOLUME 84.2 fl (80-96); MEAN PLT VOLUME 8.4 fl (7.5-11.1); NEUT % 47.1 % (42.8-82.8); PLATELET COUNT 70 K/MM3 (134-434); RBC 4.78 M/mm3 (4.00-5.60); RDW 18.1 % (11.9-15.9); WHITE BLOOD COUNT 3.8 K/mm3 (4.0-10.0)
[2020-12-19 08:15] LABS: ALBUMIN 3.4 g/dl (3.4-5.0); BLOOD UREA NITROGEN 19.4 mg/dL (7-18); CALCIUM 8.6 mg/dL (8.5-10.1); MAGNESIUM 2.8 mg/dL (1.8-2.4)
[2020-12-19 08:19] LABS: CREATININE 1.2 mg/dL (0.55-1.3)
[2020-12-19 08:20] LABS: BILIRUBIN,TOTAL 1.3 mg/dL (0.2-1); TOT PROT 6.8 g/dl (6.4-8.2)
[2020-12-19] MEDS ORDERED: PT OWN MED DRAWER 7, Y5N ONE (10:13)
[2020-12-19] MEDS: TAMSULOSIN HCL 0.4 MG CAP PO SCH (10:17)
[2020-12-19] MEDS: ENOXAPARIN NA (PORCINE) 40 MG/0.4 ML DISP.SYRIN SQ SCH (10:17)
[2020-12-19] MEDS: DOCUSATE SODIUM 100 MG CAPSULE (FP) PO SCH ×2 (10:17→21:15)
[2020-12-19] MEDS: BRIMONIDINE TARTRATE 0.15% OPHTHALMIC 5 ML BOTTLE OU SCH ×2 (10:17→21:22)
[2020-12-19] MEDS: DORZOLAMIDE 2% HCL OPHTHALMIC SOLUTION 10 ML BOTTLE OU SCH ×2 (10:18→21:22)
[2020-12-19] MEDS: PIPERACILLIN/TAZOB 3.375 GM 3.375 GM/50 ML BAG IVPB SCH (10:18)
[2020-12-19 10:28] LABS: ANISOCYTOSIS 1+; MACROCYTOSIS 0; PLATELET ESTIMATE DECREASED
[2020-12-19] MEDS ORDERED: INSULIN (NOVOLOG) ASPART 100 UNITS/ML 10ML VIAL ONE (21:08)
[2020-12-19] MEDS ORDERED: VANCOMYCIN 1,000 MG in DEXTROSE 5%-WATER - 250 ML IVPB SCH (22:00)
[2020-12-20] MEDS ORDERED: PIPERACILLIN/TAZOBACTAM 3.375 GM VIAL IVPB ONE ×4 (03:16→20:23)
[2020-12-20] MEDS ORDERED: DEXTROSE 5%-WATER - 50 ML IVPB ONE ×4 (03:17→20:23)
[2020-12-20] MEDS: PIPERACILLIN/TAZOB 3.375 GM 3.375 GM in DEXTROSE 5%-WATER - 3.375 GM/50 ML IVPB IVPB SCH ×4 (03:31→21:18)
[2020-12-20] MEDS: INSULIN SLIDING SCALE (NOVOLOG) 1 VIAL SQ SCH ×4 (06:12→21:18)
[2020-12-20 08:14] LABS: BASO % 0.8 % (0-2.0); EOS % 0.2 % (0-4.5); HEMATOCRIT 41.9 % (35.4-49); HEMOGLOBIN 14.2 GM/dL (11.7-16.9); LYMPH % 41.3 % (8-40); MCH 28.5 pg (25.7-33.7); MEAN PLT VOLUME 8.3 fl (7.5-11.1); MONO % 25.3 % (3.8-10.2); NEUT % 32.4 % (42.8-82.8); PLATELET COUNT 103 K/MM3 (134-434); RBC 4.99 M/mm3 (4.00-5.60); WHITE BLOOD COUNT 4.3 K/mm3 (4.0-10.0)
[2020-12-20 08:35] LABS: CALCIUM 8.9 mg/dL (8.5-10.1)
[2020-12-20 08:37] LABS: ALBUMIN 3.5 g/dl (3.4-5.0); BLOOD UREA NITROGEN 18.6 mg/dL (7-18); MAGNESIUM 2.5 mg/dL (1.8-2.4)
[2020-12-20 08:40] LABS: CREATININE 1.2 mg/dL (0.55-1.3); PHOSPHOROUS 2.6 mg/dL (2.5-4.9)
[2020-12-20 08:41] LABS: TOT PROT 7.1 g/dl (6.4-8.2)
[2020-12-20] MEDS ORDERED: SENNOSIDES 8.6MG TABLET (FP) PO ONE (09:42)
[2020-12-20] MEDS ORDERED: POLYETHYLENE GLYCOL 3350 119 GM BTL PO SCH (10:00)
[2020-12-20] MEDS: ENOXAPARIN NA (PORCINE) 40 MG/0.4 ML DISP.SYRIN SQ SCH (10:17)
[2020-12-20] MEDS: DOCUSATE SODIUM 100 MG CAPSULE (FP) PO SCH ×2 (10:17→21:18)
[2020-12-20] MEDS: TAMSULOSIN HCL 0.4 MG CAP PO SCH (10:18)
[2020-12-20] MEDS: BRIMONIDINE TARTRATE 0.15% OPHTHALMIC 5 ML BOTTLE OU SCH ×2 (10:19→21:14)
[2020-12-20] MEDS: DORZOLAMIDE 2% HCL OPHTHALMIC SOLUTION 10 ML BOTTLE OU SCH ×2 (10:19→21:18)
[2020-12-20] MEDS ORDERED: FLUCONAZOLE 100 MG TABLET (UD) PO ONE (11:15)
[2020-12-20] MEDS ORDERED: INSULIN (NOVOLOG) ASPART 100 UNITS/ML 10ML VIAL ONE (11:16)
[2020-12-20 11:20] LABS: ANISOCYTOSIS 1+; MACROCYTOSIS 0; PLATELET ESTIMATE DECREASED
[2020-12-20] MEDS: LACTOBACILLUS ACIDOPHILUS 1 TABLET PO SCH (11:31)
[2020-12-20] MEDS ORDERED: TAMSULOSIN HCL 0.4 MG CAP PO ONE (11:52)
[2020-12-20] MEDS: POLYETHYLENE GLYCOL 3350 119 GM BTL PO SCH (21:07)
[2020-12-21] MEDS ORDERED: DEXTROSE 5%-WATER - 50 ML IVPB ONE ×4 (02:23→20:49)
[2020-12-21] MEDS ORDERED: PIPERACILLIN/TAZOBACTAM 3.375 GM VIAL IVPB ONE ×4 (02:23→20:48)
[2020-12-21] MEDS: PIPERACILLIN/TAZOB 3.375 GM 3.375 GM in DEXTROSE 5%-WATER - 3.375 GM/50 ML IVPB IVPB SCH ×4 (02:29→21:43)
[2020-12-21] MEDS: INSULIN SLIDING SCALE (NOVOLOG) 1 VIAL SQ SCH ×4 (06:00→21:50)
[2020-12-21 08:24] LABS: BASO % 0.7 % (0-2.0); EOS % 0.3 % (0-4.5); HEMOGLOBIN 13.7 GM/dL (11.7-16.9); LYMPH % 39.6 % (8-40); MCH 28.4 pg (25.7-33.7); MCHC 34.3 g/dl (32.0-35.9); MEAN CELL VOLUME 82.7 fl (80-96); MEAN PLT VOLUME 8.1 fl (7.5-11.1); MONO % 21.7 % (3.8-10.2); NEUT % 37.7 % (42.8-82.8); PLATELET COUNT 115 K/MM3 (134-434); RBC 4.84 M/mm3 (4.00-5.60); RDW 17.9 % (11.9-15.9); WHITE BLOOD COUNT 5.2 K/mm3 (4.0-10.0)
[2020-12-21 08:46] LABS: ALBUMIN 3.4 g/dl (3.4-5.0); CALCIUM 8.6 mg/dL (8.5-10.1)
[2020-12-21 08:47] LABS: MAGNESIUM 2.3 mg/dL (1.8-2.4)
[2020-12-21 08:51] LABS: BILIRUBIN,TOTAL 0.9 mg/dL (0.2-1); CREATININE 1.2 mg/dL (0.55-1.3); PHOSPHOROUS 3.2 mg/dL (2.5-4.9); TOT PROT 6.8 g/dl (6.4-8.2)
[2020-12-21 09:37] LABS: ANISOCYTOSIS 0; MACROCYTOSIS 0; PLATELET ESTIMATE DECREASED
[2020-12-21] MEDS ORDERED: PT OWN MED DRAWER 7, Y5N ONE (09:37)
[2020-12-21] MEDS: BRIMONIDINE TARTRATE 0.15% OPHTHALMIC 5 ML BOTTLE OU SCH ×2 (11:01→21:51)
[2020-12-21] MEDS: LACTOBACILLUS ACIDOPHILUS 1 TABLET PO SCH (11:01)
[2020-12-21] MEDS: TAMSULOSIN HCL 0.4 MG CAP PO SCH (11:01)
[2020-12-21] MEDS: ENOXAPARIN NA (PORCINE) 40 MG/0.4 ML DISP.SYRIN SQ SCH (11:02)
[2020-12-21] MEDS: POLYETHYLENE GLYCOL 3350 119 GM BTL PO SCH (11:03)
[2020-12-21] MEDS: DORZOLAMIDE 2% HCL OPHTHALMIC SOLUTION 10 ML BOTTLE OU SCH ×2 (11:03→21:51)
[2020-12-21] MEDS ORDERED: FLUCONAZOLE 100 MG TABLET (UD) PO ONE (15:28)
[2020-12-21] MEDS ORDERED: ACETAMINOPHEN 1000 MG/100 ML VIAL (NON FORMULARY) IVPB PRN (16:36)
[2020-12-21] MEDS ORDERED: VANCOMYCIN 1 GRAM (PRE-DOCKED) 1,000 MG/250 ML BAG IVPB ONE (17:00)
[2020-12-21] MEDS ORDERED: FLUCONAZOLE 100 MG/NS 50 ML IVPB ONE (17:00)
[2020-12-21] MEDS: FLUCONAZOLE 200 MG/NS 100 ML IVPB SCH (18:33)
[2020-12-21 19:19] LABS: EPI CELLS 1 /uL (0-25.1); HYALINE CASTS 1 /uL (0-3.1); PH,URINE 5.5 (5.0-8.0); URINE APPEARANCE CLOUDY; URINE BACTERIA 2 /uL (0-1359); URINE BILIRUBIN NEGATIVE (NEGATIVE); URINE COLOR YELLOW; URINE GLUCOSE (UA) 2+ (NEGATIVE); URINE KETONE 1+ (NEGATIVE); URINE LEUK ESTERASE 1+ (NEGATIVE); URINE NITRITE NEGATIVE (NEGATIVE); URINE PROTEIN 1+ (NEGATIVE); URINE WBC 779 /uL (0-25.8)
[2020-12-21] MEDS: DOCUSATE SODIUM 100 MG CAPSULE (FP) PO SCH (21:43)
[2020-12-22] MEDS ORDERED: ONDANSETRON 4 MG TABLET PO ONE (04:45)
[2020-12-22] MEDS: INSULIN SLIDING SCALE (NOVOLOG) 1 VIAL SQ SCH ×4 (06:35→21:45)
[2020-12-22 07:33] LABS: BASO % 1.1 % (0-2.0); EOS % 0.1 % (0-4.5); HEMATOCRIT 41.3 % (35.4-49); HEMOGLOBIN 14.1 GM/dL (11.7-16.9); LYMPH % 27.7 % (8-40); MCH 28.5 pg (25.7-33.7); MEAN CELL VOLUME 83.7 fl (80-96); MEAN PLT VOLUME 7.7 fl (7.5-11.1); MONO % 16.1 % (3.8-10.2); PLATELET COUNT 119 K/MM3 (134-434); RBC 4.93 M/mm3 (4.00-5.60); RDW 18.1 % (11.9-15.9); WHITE BLOOD COUNT 8.3 K/mm3 (4.0-10.0)
[2020-12-22 07:57] LABS: ALBUMIN 3.6 g/dl (3.4-5.0); CALCIUM 9.3 mg/dL (8.5-10.1)
[2020-12-22 07:59] LABS: BLOOD UREA NITROGEN 15.3 mg/dL (7-18); MAGNESIUM 2.3 mg/dL (1.8-2.4)
[2020-12-22 08:00] LABS: CREATININE 1.3 mg/dL (0.55-1.3)
[2020-12-22 08:01] LABS: PHOSPHOROUS 3.7 mg/dL (2.5-4.9)
[2020-12-22 08:03] LABS: TOT PROT 7.3 g/dl (6.4-8.2)
[2020-12-22] MEDS ORDERED: PT OWN MED DRAWER 7, Y5N ONE (09:48)
[2020-12-22] MEDS: FLUCONAZOLE 200 MG/NS 100 ML IVPB SCH (09:59)
[2020-12-22] MEDS: ENOXAPARIN NA (PORCINE) 40 MG/0.4 ML DISP.SYRIN SQ SCH (09:59)
[2020-12-22] MEDS: TAMSULOSIN HCL 0.4 MG CAP PO SCH (10:00)
[2020-12-22] MEDS: BRIMONIDINE TARTRATE 0.15% OPHTHALMIC 5 ML BOTTLE OU SCH ×2 (10:00→21:47)
[2020-12-22] MEDS: DORZOLAMIDE 2% HCL OPHTHALMIC SOLUTION 10 ML BOTTLE OU SCH ×2 (10:00→21:47)
[2020-12-22] MEDS: LACTOBACILLUS ACIDOPHILUS 1 TABLET PO SCH (10:00)
[2020-12-22] MEDS ORDERED: DEXTROSE 5%-WATER - 50 ML IVPB ONE (19:36)
[2020-12-22] MEDS ORDERED: PIPERACILLIN/TAZOBACTAM 3.375 GM VIAL IVPB ONE (19:36)
[2020-12-22] MEDS: PIPERACILLIN/TAZOB 3.375 GM 3.375 GM in DEXTROSE 5%-WATER - 50 ML IVPB SCH (19:44)
[2020-12-22] MEDS: DOCUSATE SODIUM 100 MG CAPSULE (FP) PO SCH (21:46)
[2020-12-23] MEDS ORDERED: PIPERACILLIN/TAZOBACTAM 3.375 GM VIAL IVPB ONE ×2 (02:03→09:01)
[2020-12-23] MEDS ORDERED: DEXTROSE 5%-WATER - 50 ML IVPB ONE ×2 (02:03→09:02)
[2020-12-23] MEDS: PIPERACILLIN/TAZOB 3.375 GM 3.375 GM in DEXTROSE 5%-WATER - 50 ML IVPB SCH ×2 (02:22→09:20)
[2020-12-23] MEDS: INSULIN SLIDING SCALE (NOVOLOG) 1 VIAL SQ SCH ×4 (06:38→22:59)
[2020-12-23 08:09] LABS: BASO % 0.5 % (0-2.0); EOS % 0.1 % (0-4.5); HEMATOCRIT 39.9 % (35.4-49); HEMOGLOBIN 13.6 GM/dL (11.7-16.9); LYMPH % 42.9 % (8-40); MCH 28.2 pg (25.7-33.7); MEAN CELL VOLUME 82.8 fl (80-96); MEAN PLT VOLUME 7.8 fl (7.5-11.1); MONO % 22.7 % (3.8-10.2); NEUT % 33.8 % (42.8-82.8); PLATELET COUNT 126 K/MM3 (134-434); RBC 4.82 M/mm3 (4.00-5.60); RDW 17.8 % (11.9-15.9); WHITE BLOOD COUNT 5.2 K/mm3 (4.0-10.0)
[2020-12-23 08:20] LABS: CALCIUM 9.1 mg/dL (8.5-10.1)
[2020-12-23 08:21] LABS: ALBUMIN 3.4 g/dl (3.4-5.0); BLOOD UREA NITROGEN 15.8 mg/dL (7-18)
[2020-12-23 08:24] LABS: CREATININE 1.3 mg/dL (0.55-1.3)
[2020-12-23 08:26] LABS: BILIRUBIN,TOTAL 0.7 mg/dL (0.2-1)
[2020-12-23] MEDS: LACTOBACILLUS ACIDOPHILUS 1 TABLET PO SCH (09:19)
[2020-12-23] MEDS: ENOXAPARIN NA (PORCINE) 40 MG/0.4 ML DISP.SYRIN SQ SCH (09:19)
[2020-12-23] MEDS: TAMSULOSIN HCL 0.4 MG CAP PO SCH (09:19)
[2020-12-23] MEDS: BRIMONIDINE TARTRATE 0.15% OPHTHALMIC 5 ML BOTTLE OU SCH ×2 (09:21→22:53)
[2020-12-23] MEDS: DORZOLAMIDE 2% HCL OPHTHALMIC SOLUTION 10 ML BOTTLE OU SCH ×2 (09:21→22:52)
[2020-12-23] MEDS ORDERED: VANCOMYCIN 1 GRAM (PRE-DOCKED) 1 GM/200 ML BAG IVPB ONE (09:45)
[2020-12-23] MEDS ORDERED: CASPOFUNGIN ACETATE 70 MG in SODIUM CHLORIDE 250 ML IVPB ONE (10:00)
[2020-12-23 11:50] LABS: ANISOCYTOSIS 1+; MACROCYTOSIS 1+; PLATELET ESTIMATE DECREASED
[2020-12-23] MEDS ORDERED: PT OWN MED DRAWER 7, Y5N ONE (22:51)
[2020-12-23] MEDS: DOCUSATE SODIUM 100 MG CAPSULE (FP) PO SCH (22:53)
[2020-12-24] MEDS: INSULIN SLIDING SCALE (NOVOLOG) 1 VIAL SQ SCH ×4 (06:32→21:33)
[2020-12-24 07:46] LABS: BASO % 0.5 % (0-2.0); EOS % 0.3 % (0-4.5); HEMATOCRIT 39.2 % (35.4-49); HEMOGLOBIN 13.3 GM/dL (11.7-16.9); LYMPH % 45.2 % (8-40); MCH 28.4 pg (25.7-33.7); MCHC 33.9 g/dl (32.0-35.9); MEAN CELL VOLUME 83.8 fl (80-96); MEAN PLT VOLUME 9.2 fl (7.5-11.1); MONO % 19.8 % (3.8-10.2); NEUT % 34.2 % (42.8-82.8); PLATELET COUNT 131 K/MM3 (134-434); RBC 4.68 M/mm3 (4.00-5.60); RDW 17.4 % (11.9-15.9); WHITE BLOOD COUNT 4.7 K/mm3 (4.0-10.0)
[2020-12-24 08:17] LABS: ALBUMIN 3.3 g/dl (3.4-5.0); BLOOD UREA NITROGEN 13.2 mg/dL (7-18); MAGNESIUM 2.3 mg/dL (1.8-2.4)
[2020-12-24 08:19] LABS: CREATININE 1.1 mg/dL (0.55-1.3)
[2020-12-24 08:20] LABS: PHOSPHOROUS 2.7 mg/dL (2.5-4.9)
[2020-12-24 08:21] LABS: BILIRUBIN,TOTAL 0.7 mg/dL (0.2-1); TOT PROT 6.9 g/dl (6.4-8.2)
[2020-12-24] MEDS: ENOXAPARIN NA (PORCINE) 40 MG/0.4 ML DISP.SYRIN SQ SCH (09:52)
[2020-12-24] MEDS: CASPOFUNGIN ACETATE 50 MG in SODIUM CHLORIDE 250 ML IVPB SCH (09:53)
[2020-12-24] MEDS: TAMSULOSIN HCL 0.4 MG CAP PO SCH (09:53)
[2020-12-24] MEDS: LACTOBACILLUS ACIDOPHILUS 1 TABLET PO SCH (09:53)
[2020-12-24] MEDS: DORZOLAMIDE 2% HCL OPHTHALMIC SOLUTION 10 ML BOTTLE OU SCH ×2 (09:54→21:33)
[2020-12-24] MEDS: BRIMONIDINE TARTRATE 0.15% OPHTHALMIC 5 ML BOTTLE OU SCH ×2 (09:55→21:33)
[2020-12-24] MEDS: DOCUSATE SODIUM 100 MG CAPSULE (FP) PO SCH (21:34)
[2020-12-25] MEDS: INSULIN SLIDING SCALE (NOVOLOG) 1 VIAL SQ SCH ×4 (06:23→21:25)
[2020-12-25 08:07] LABS: BASO % 0.4 % (0-2.0); EOS % 0.3 % (0-4.5); HEMATOCRIT 37.3 % (35.4-49); HEMOGLOBIN 12.8 GM/dL (11.7-16.9); LYMPH % 47.1 % (8-40); MCH 28.4 pg (25.7-33.7); MCHC 34.4 g/dl (32.0-35.9); MEAN CELL VOLUME 82.4 fl (80-96); MEAN PLT VOLUME 7.6 fl (7.5-11.1); MONO % 22.4 % (3.8-10.2); NEUT % 29.8 % (42.8-82.8); PLATELET COUNT 133 K/MM3 (134-434); RBC 4.53 M/mm3 (4.00-5.60); RDW 17.5 % (11.9-15.9); WHITE BLOOD COUNT 3.4 K/mm3 (4.0-10.0)
[2020-12-25 08:30] LABS: ALBUMIN 3.2 g/dl (3.4-5.0); BLOOD UREA NITROGEN 13.5 mg/dL (7-18); CALCIUM 8.6 mg/dL (8.5-10.1); MAGNESIUM 2.2 mg/dL (1.8-2.4)
[2020-12-25 08:33] LABS: PHOSPHOROUS 2.7 mg/dL (2.5-4.9)
[2020-12-25 08:34] LABS: BILIRUBIN,TOTAL 0.8 mg/dL (0.2-1); TOT PROT 6.7 g/dl (6.4-8.2)
[2020-12-25] MEDS ORDERED: PT OWN MED DRAWER 7, Y5N ONE (09:36)
[2020-12-25] MEDS: TAMSULOSIN HCL 0.4 MG CAP PO SCH (10:25)
[2020-12-25] MEDS: BRIMONIDINE TARTRATE 0.15% OPHTHALMIC 5 ML BOTTLE OU SCH ×2 (10:25→21:21)
[2020-12-25] MEDS: LACTOBACILLUS ACIDOPHILUS 1 TABLET PO SCH (10:25)
[2020-12-25] MEDS: DORZOLAMIDE 2% HCL OPHTHALMIC SOLUTION 10 ML BOTTLE OU SCH ×2 (10:26→21:22)
[2020-12-25 10:31] LABS: ANISOCYTOSIS 0; HELMET CELLS 0; HOWELL-JOLLY BODIES 0; MACROCYTOSIS 0; OVALOCYTE 0; PLATELET ESTIMATE DECREASED; ROULEAU 0; SICKELED CELLS 0; TARGET CELLS 0; TEAR DROP CELLS 0; TOXIC GRANULATION 0
[2020-12-25] MEDS: CASPOFUNGIN ACETATE 50 MG in SODIUM CHLORIDE 250 ML IVPB SCH (14:38)
[2020-12-25] MEDS: DOCUSATE SODIUM 100 MG CAPSULE (FP) PO SCH (21:17)
[2020-12-25] MEDS ORDERED: INSULIN (NOVOLOG) ASPART 100 UNITS/ML 10ML VIAL ONE (21:24)
[2020-12-26] MEDS: INSULIN SLIDING SCALE (NOVOLOG) 1 VIAL SQ SCH ×4 (06:22→22:22)
[2020-12-26 07:32] LABS: BASO % 0.3 % (0-2.0); EOS % 0.5 % (0-4.5); HEMATOCRIT 37.6 % (35.4-49); HEMOGLOBIN 12.7 GM/dL (11.7-16.9); LYMPH % 56.8 % (8-40); MCH 28.1 pg (25.7-33.7); MCHC 33.9 g/dl (32.0-35.9); MEAN CELL VOLUME 82.9 fl (80-96); MEAN PLT VOLUME 7.2 fl (7.5-11.1); MONO % 20.3 % (3.8-10.2); NEUT % 22.1 % (42.8-82.8); PLATELET COUNT 134 K/MM3 (134-434); RBC 4.53 M/mm3 (4.00-5.60); RDW 17.2 % (11.9-15.9); WHITE BLOOD COUNT 3.5 K/mm3 (4.0-10.0)
[2020-12-26 07:50] LABS: ALBUMIN 3.2 g/dl (3.4-5.0); CALCIUM 8.8 mg/dL (8.5-10.1); MAGNESIUM 2.2 mg/dL (1.8-2.4)
[2020-12-26 07:53] LABS: PHOSPHOROUS 2.7 mg/dL (2.5-4.9)
[2020-12-26 07:55] LABS: BILIRUBIN,TOTAL 0.6 mg/dL (0.2-1); TOT PROT 6.4 g/dl (6.4-8.2)
[2020-12-26 09:07] LABS: ANISOCYTOSIS 0; MACROCYTOSIS 0; PLATELET ESTIMATE DECREASED
[2020-12-26] MEDS ORDERED: PT OWN MED DRAWER 7, Y5N ONE (10:39)
[2020-12-26] MEDS: TAMSULOSIN HCL 0.4 MG CAP PO SCH (10:40)
[2020-12-26] MEDS: LACTOBACILLUS ACIDOPHILUS 1 TABLET PO SCH (10:41)
[2020-12-26] MEDS: CASPOFUNGIN ACETATE 50 MG in SODIUM CHLORIDE 250 ML IVPB SCH (10:41)
[2020-12-26] MEDS: BRIMONIDINE TARTRATE 0.15% OPHTHALMIC 5 ML BOTTLE OU SCH ×2 (10:41→22:21)
[2020-12-26] MEDS: DORZOLAMIDE 2% HCL OPHTHALMIC SOLUTION 10 ML BOTTLE OU SCH ×2 (10:41→22:21)
[2020-12-26] MEDS: DOCUSATE SODIUM 100 MG CAPSULE (FP) PO SCH (22:11)
[2020-12-27] MEDS: INSULIN SLIDING SCALE (NOVOLOG) 1 VIAL SQ SCH ×4 (06:10→22:00)
[2020-12-27 07:25] LABS: BASO % 0.2 % (0-2.0); EOS % 0.2 % (0-4.5); HEMATOCRIT 38.8 % (35.4-49); HEMOGLOBIN 13.4 GM/dL (11.7-16.9); LYMPH % 54.8 % (8-40); MCH 28.3 pg (25.7-33.7); MCHC 34.5 g/dl (32.0-35.9); MEAN PLT VOLUME 7.1 fl (7.5-11.1); MONO % 15.8 % (3.8-10.2); PLATELET COUNT 138 K/MM3 (134-434); RBC 4.73 M/mm3 (4.00-5.60); RDW 17.3 % (11.9-15.9); WHITE BLOOD COUNT 3.3 K/mm3 (4.0-10.0)
[2020-12-27 07:53] LABS: ALBUMIN 3.4 g/dl (3.4-5.0); CALCIUM 8.8 mg/dL (8.5-10.1)
[2020-12-27 07:54] LABS: MAGNESIUM 2.1 mg/dL (1.8-2.4)
[2020-12-27 07:57] LABS: PHOSPHOROUS 2.7 mg/dL (2.5-4.9)
[2020-12-27 07:58] LABS: BILIRUBIN,TOTAL 0.8 mg/dL (0.2-1); TOT PROT 6.8 g/dl (6.4-8.2)
[2020-12-27] MEDS: CASPOFUNGIN ACETATE 50 MG in SODIUM CHLORIDE 250 ML IVPB SCH (09:25)
[2020-12-27] MEDS: LACTOBACILLUS ACIDOPHILUS 1 TABLET PO SCH (09:25)
[2020-12-27] MEDS: TAMSULOSIN HCL 0.4 MG CAP PO SCH (09:26)
[2020-12-27] MEDS: ENOXAPARIN NA (PORCINE) 40 MG/0.4 ML DISP.SYRIN SQ SCH (10:00)
[2020-12-27] MEDS: DORZOLAMIDE 2% HCL OPHTHALMIC SOLUTION 10 ML BOTTLE OU SCH ×2 (10:01→22:02)
[2020-12-27] MEDS: BRIMONIDINE TARTRATE 0.15% OPHTHALMIC 5 ML BOTTLE OU SCH ×2 (10:01→22:02)
[2020-12-27] MEDS: ACETAMINOPHEN 325 MG TABLET (FP) PO PRN (10:02)
[2020-12-27] MEDS: DOCUSATE SODIUM 100 MG CAPSULE (FP) PO SCH (22:00)
[2020-12-28] MEDS: INSULIN SLIDING SCALE (NOVOLOG) 1 VIAL SQ SCH ×4 (06:31→23:00)
[2020-12-28] MEDS: CASPOFUNGIN ACETATE 50 MG in SODIUM CHLORIDE 250 ML IVPB SCH (09:01)
[2020-12-28] MEDS: TAMSULOSIN HCL 0.4 MG CAP PO SCH (09:02)
[2020-12-28] MEDS: ENOXAPARIN NA (PORCINE) 40 MG/0.4 ML DISP.SYRIN SQ SCH (09:02)
[2020-12-28] MEDS: LACTOBACILLUS ACIDOPHILUS 1 TABLET PO SCH (09:02)
[2020-12-28] MEDS: BRIMONIDINE TARTRATE 0.15% OPHTHALMIC 5 ML BOTTLE OU SCH ×2 (09:02→23:00)
[2020-12-28] MEDS: DORZOLAMIDE 2% HCL OPHTHALMIC SOLUTION 10 ML BOTTLE OU SCH ×2 (09:03→23:00)
[2020-12-28 09:40] LABS: BASO % 0.4 % (0-2.0); EOS % 0.3 % (0-4.5); HEMATOCRIT 40.1 % (35.4-49); HEMOGLOBIN 13.6 GM/dL (11.7-16.9); LYMPH % 59.7 % (8-40); MCHC 33.8 g/dl (32.0-35.9); MEAN CELL VOLUME 82.8 fl (80-96); MEAN PLT VOLUME 7.3 fl (7.5-11.1); MONO % 13.6 % (3.8-10.2); PLATELET COUNT 148 K/MM3 (134-434); RBC 4.84 M/mm3 (4.00-5.60); RDW 17.6 % (11.9-15.9)
[2020-12-28 10:01] LABS: CALCIUM 9.1 mg/dL (8.5-10.1)
[2020-12-28 10:02] LABS: BLOOD UREA NITROGEN 13.2 mg/dL (7-18); MAGNESIUM 2.2 mg/dL (1.8-2.4)
[2020-12-28 10:05] LABS: PHOSPHOROUS 2.8 mg/dL (2.5-4.9)
[2020-12-28 10:06] LABS: CREATININE 1.1 mg/dL (0.55-1.3)
[2020-12-28] MEDS: DOCUSATE SODIUM 100 MG CAPSULE (FP) PO SCH (23:00)
[2020-12-29] MEDS ORDERED: INSULIN (NOVOLOG) ASPART 100 UNITS/ML 10ML VIAL ONE (07:46)
[2020-12-29] MEDS: INSULIN SLIDING SCALE (NOVOLOG) 1 VIAL SQ SCH ×4 (07:48→21:50)
[2020-12-29 08:05] LABS: BASO % 0.4 % (0-2.0); EOS % 0.3 % (0-4.5); HEMATOCRIT 39.7 % (35.4-49); HEMOGLOBIN 13.2 GM/dL (11.7-16.9); LYMPH % 56.4 % (8-40); MCHC 33.3 g/dl (32.0-35.9); MEAN CELL VOLUME 84.2 fl (80-96); MEAN PLT VOLUME 7.4 fl (7.5-11.1); MONO % 17.4 % (3.8-10.2); NEUT % 25.5 % (42.8-82.8); PLATELET COUNT 148 K/MM3 (134-434); RBC 4.71 M/mm3 (4.00-5.60); RDW 17.2 % (11.9-15.9); WHITE BLOOD COUNT 2.8 K/mm3 (4.0-10.0)
[2020-12-29 08:12] LABS: ALBUMIN 3.4 g/dl (3.4-5.0); BLOOD UREA NITROGEN 13.3 mg/dL (7-18); MAGNESIUM 2.1 mg/dL (1.8-2.4)
[2020-12-29 08:13] LABS: PHOSPHOROUS 3.2 mg/dL (2.5-4.9)
[2020-12-29 08:15] LABS: CREATININE 1.1 mg/dL (0.55-1.3)
[2020-12-29 08:17] LABS: BILIRUBIN,TOTAL 0.7 mg/dL (0.2-1); TOT PROT 6.8 g/dl (6.4-8.2)
[2020-12-29] MEDS: ENOXAPARIN NA (PORCINE) 40 MG/0.4 ML DISP.SYRIN SQ SCH (09:20)
[2020-12-29] MEDS: LACTOBACILLUS ACIDOPHILUS 1 TABLET PO SCH (09:20)
[2020-12-29] MEDS: TAMSULOSIN HCL 0.4 MG CAP PO SCH (09:20)
[2020-12-29] MEDS: CASPOFUNGIN ACETATE 50 MG in SODIUM CHLORIDE 250 ML IVPB SCH (09:21)
[2020-12-29] MEDS: DORZOLAMIDE 2% HCL OPHTHALMIC SOLUTION 10 ML BOTTLE OU SCH ×2 (09:21→21:45)
[2020-12-29] MEDS: BRIMONIDINE TARTRATE 0.15% OPHTHALMIC 5 ML BOTTLE OU SCH ×2 (09:21→21:45)
[2020-12-29] MEDS: ACETAMINOPHEN 325 MG TABLET (FP) PO PRN (14:07)
[2020-12-29] MEDS: DOCUSATE SODIUM 100 MG CAPSULE (FP) PO SCH (21:45)
[2020-12-30] MEDS: INSULIN SLIDING SCALE (NOVOLOG) 1 VIAL SQ SCH ×4 (07:02→22:12)
[2020-12-30 07:20] LABS: BASO % 0.3 % (0-2.0); EOS % 0.3 % (0-4.5); HEMATOCRIT 39.1 % (35.4-49); HEMOGLOBIN 13.3 GM/dL (11.7-16.9); LYMPH % 64.4 % (8-40); MCH 28.1 pg (25.7-33.7); MEAN CELL VOLUME 82.7 fl (80-96); MEAN PLT VOLUME 7.1 fl (7.5-11.1); PLATELET COUNT 181 K/MM3 (134-434); RBC 4.73 M/mm3 (4.00-5.60); RDW 17.5 % (11.9-15.9); WHITE BLOOD COUNT 2.9 K/mm3 (4.0-10.0)
[2020-12-30 07:29] LABS: CALCIUM 9.3 mg/dL (8.5-10.1)
[2020-12-30 07:30] LABS: BLOOD UREA NITROGEN 13.4 mg/dL (7-18)
[2020-12-30 07:33] LABS: CREATININE 1.1 mg/dL (0.55-1.3)
[2020-12-30 09:05] LABS: ANISOCYTOSIS 2+; MACROCYTOSIS 0; PLATELET ESTIMATE NORMAL
[2020-12-30] MEDS: CASPOFUNGIN ACETATE 50 MG in SODIUM CHLORIDE 250 ML IVPB SCH (10:22)
[2020-12-30] MEDS: TAMSULOSIN HCL 0.4 MG CAP PO SCH (10:22)
[2020-12-30] MEDS: LACTOBACILLUS ACIDOPHILUS 1 TABLET PO SCH (10:22)
[2020-12-30] MEDS: BRIMONIDINE TARTRATE 0.15% OPHTHALMIC 5 ML BOTTLE OU SCH ×2 (10:23→22:14)
[2020-12-30] MEDS: DORZOLAMIDE 2% HCL OPHTHALMIC SOLUTION 10 ML BOTTLE OU SCH ×2 (10:23→22:14)
[2020-12-30] MEDS ORDERED: INSULIN (NOVOLOG) ASPART 100 UNITS/ML 10ML VIAL ONE (11:24)
[2020-12-30] MEDS: DOCUSATE SODIUM 100 MG CAPSULE (FP) PO SCH (22:13)
[2020-12-31 07:12] LABS: BASO % 0.3 % (0-2.0); EOS % 0.3 % (0-4.5); HEMATOCRIT 36.7 % (35.4-49); HEMOGLOBIN 12.6 GM/dL (11.7-16.9); LYMPH % 57.4 % (8-40); MCH 28.3 pg (25.7-33.7); MCHC 34.2 g/dl (32.0-35.9); MEAN CELL VOLUME 82.6 fl (80-96); MONO % 20.9 % (3.8-10.2); NEUT % 21.1 % (42.8-82.8); PLATELET COUNT 186 K/MM3 (134-434); RBC 4.44 M/mm3 (4.00-5.60); RDW 17.3 % (11.9-15.9); WHITE BLOOD COUNT 3.4 K/mm3 (4.0-10.0)
[2020-12-31] MEDS: INSULIN SLIDING SCALE (NOVOLOG) 1 VIAL SQ SCH ×4 (07:22→22:16)
[2020-12-31 07:40] LABS: ALBUMIN 3.2 g/dl (3.4-5.0); BLOOD UREA NITROGEN 12.4 mg/dL (7-18); CALCIUM 8.9 mg/dL (8.5-10.1); MAGNESIUM 1.9 mg/dL (1.8-2.4)
[2020-12-31 07:43] LABS: PHOSPHOROUS 3.1 mg/dL (2.5-4.9)
[2020-12-31 07:44] LABS: CREATININE 1.2 mg/dL (0.55-1.3)
[2020-12-31 07:45] LABS: BILIRUBIN,TOTAL 0.6 mg/dL (0.2-1); TOT PROT 6.4 g/dl (6.4-8.2)
[2020-12-31 09:03] LABS: ANISOCYTOSIS 0; HELMET CELLS 0; HOWELL-JOLLY BODIES 0; MACROCYTOSIS 0; OVALOCYTE 0; PLATELET ESTIMATE NORMAL; ROULEAU 0; SICKELED CELLS 0; TARGET CELLS 0; TEAR DROP CELLS 0; TOXIC GRANULATION 0
[2020-12-31] MEDS: BRIMONIDINE TARTRATE 0.15% OPHTHALMIC 5 ML BOTTLE OU SCH ×2 (09:05→22:18)
[2020-12-31] MEDS: DORZOLAMIDE 2% HCL OPHTHALMIC SOLUTION 10 ML BOTTLE OU SCH ×2 (09:06→22:17)
[2020-12-31] MEDS: LACTOBACILLUS ACIDOPHILUS 1 TABLET PO SCH (09:07)
[2020-12-31] MEDS: FLUCONAZOLE 100 MG TABLET (UD) PO SCH (09:07)
[2020-12-31] MEDS: TAMSULOSIN HCL 0.4 MG CAP PO SCH (09:07)
[2020-12-31] MEDS: ACETAMINOPHEN 325 MG TABLET (FP) PO PRN (20:33)
[2020-12-31] MEDS: DOCUSATE SODIUM 100 MG CAPSULE (FP) PO SCH (22:17)
[2021-01-01] MEDS: INSULIN SLIDING SCALE (NOVOLOG) 1 VIAL SQ SCH ×4 (06:27→22:11)
[2021-01-01 08:26] LABS: BASO % 0.4 % (0-2.0); EOS % 0.2 % (0-4.5); HEMATOCRIT 37.4 % (35.4-49); HEMOGLOBIN 12.7 GM/dL (11.7-16.9); LYMPH % 61.4 % (8-40); MCH 28.1 pg (25.7-33.7); MEAN CELL VOLUME 82.6 fl (80-96); MEAN PLT VOLUME 7.1 fl (7.5-11.1); MONO % 19.2 % (3.8-10.2); NEUT % 18.8 % (42.8-82.8); PLATELET COUNT 210 K/MM3 (134-434); RBC 4.53 M/mm3 (4.00-5.60); RDW 17.1 % (11.9-15.9); WHITE BLOOD COUNT 3.4 K/mm3 (4.0-10.0)
[2021-01-01] MEDS: TAMSULOSIN HCL 0.4 MG CAP PO SCH (09:24)
[2021-01-01] MEDS: LACTOBACILLUS ACIDOPHILUS 1 TABLET PO SCH (09:24)
[2021-01-01] MEDS: FLUCONAZOLE 100 MG TABLET (UD) PO SCH (09:24)
[2021-01-01] MEDS: DORZOLAMIDE 2% HCL OPHTHALMIC SOLUTION 10 ML BOTTLE OU SCH ×2 (09:25→22:09)
[2021-01-01] MEDS: BRIMONIDINE TARTRATE 0.15% OPHTHALMIC 5 ML BOTTLE OU SCH ×2 (09:25→22:09)
[2021-01-01 09:28] LABS: CALCIUM 9.4 mg/dL (8.5-10.1)
[2021-01-01 09:29] LABS: BLOOD UREA NITROGEN 9.9 mg/dL (7-18); MAGNESIUM 2.1 mg/dL (1.8-2.4)
[2021-01-01 09:32] LABS: PHOSPHOROUS 3.1 mg/dL (2.5-4.9)
[2021-01-01] MEDS ORDERED: INSULIN (NOVOLOG) ASPART 100 UNITS/ML 10ML VIAL ONE (10:58)
[2021-01-01] MEDS: ACETAMINOPHEN 325 MG TABLET (FP) PO PRN ×2 (11:32→22:17)
[2021-01-01 12:08] LABS: PLATELET ESTIMATE NORMAL
[2021-01-01 12:15] LABS: ANISOCYTOSIS 1+
[2021-01-01] MEDS: DOCUSATE SODIUM 100 MG CAPSULE (FP) PO SCH (22:09)
[2021-01-02] MEDS: INSULIN SLIDING SCALE (NOVOLOG) 1 VIAL SQ SCH ×4 (06:18→21:42)
[2021-01-02 07:37] LABS: BASO % 0.2 % (0-2.0); EOS % 0.2 % (0-4.5); HEMATOCRIT 36.7 % (35.4-49); HEMOGLOBIN 12.5 GM/dL (11.7-16.9); LYMPH % 56.2 % (8-40); MCH 28.5 pg (25.7-33.7); MCHC 34.2 g/dl (32.0-35.9); MEAN CELL VOLUME 83.2 fl (80-96); MEAN PLT VOLUME 7.3 fl (7.5-11.1); MONO % 19.6 % (3.8-10.2); NEUT % 23.8 % (42.8-82.8); PLATELET COUNT 209 K/MM3 (134-434); RDW 17.4 % (11.9-15.9); WHITE BLOOD COUNT 3.2 K/mm3 (4.0-10.0)
[2021-01-02 07:57] LABS: CALCIUM 8.7 mg/dL (8.5-10.1); CREATININE 1.1 mg/dL (0.55-1.3)
[2021-01-02 07:58] LABS: MAGNESIUM 1.9 mg/dL (1.8-2.4); PHOSPHOROUS 3.2 mg/dL (2.5-4.9)
[2021-01-02] MEDS: FLUCONAZOLE 100 MG TABLET (UD) PO SCH (09:34)
[2021-01-02] MEDS: TAMSULOSIN HCL 0.4 MG CAP PO SCH (09:37)
[2021-01-02] MEDS: BRIMONIDINE TARTRATE 0.15% OPHTHALMIC 5 ML BOTTLE OU SCH ×2 (09:38→21:41)
[2021-01-02] MEDS: LACTOBACILLUS ACIDOPHILUS 1 TABLET PO SCH (09:38)
[2021-01-02] MEDS: ENOXAPARIN NA (PORCINE) 40 MG/0.4 ML DISP.SYRIN SQ SCH (09:38)
[2021-01-02] MEDS: DORZOLAMIDE 2% HCL OPHTHALMIC SOLUTION 10 ML BOTTLE OU SCH ×2 (09:39→21:41)
[2021-01-02] MEDS: ACETAMINOPHEN 325 MG TABLET (FP) PO PRN (20:20)
[2021-01-02] MEDS: DOCUSATE SODIUM 100 MG CAPSULE (FP) PO SCH (21:41)
[2021-01-03] MEDS: INSULIN SLIDING SCALE (NOVOLOG) 1 VIAL SQ SCH ×2 (06:01→11:17)
[2021-01-03 07:52] LABS: BASO % 0.4 % (0-2.0); EOS % 0.3 % (0-4.5); HEMATOCRIT 36.7 % (35.4-49); HEMOGLOBIN 12.5 GM/dL (11.7-16.9); LYMPH % 57.8 % (8-40); MCH 28.4 pg (25.7-33.7); MCHC 34.1 g/dl (32.0-35.9); MEAN CELL VOLUME 83.2 fl (80-96); NEUT % 23.5 % (42.8-82.8); PLATELET COUNT 202 K/MM3 (134-434); RBC 4.41 M/mm3 (4.00-5.60); RDW 16.8 % (11.9-15.9); WHITE BLOOD COUNT 3.3 K/mm3 (4.0-10.0)
[2021-01-03 08:14] LABS: BLOOD UREA NITROGEN 11.9 mg/dL (7-18)
[2021-01-03 08:15] LABS: CALCIUM 9.5 mg/dL (8.5-10.1)
[2021-01-03 08:18] LABS: CREATININE 1.1 mg/dL (0.55-1.3); PHOSPHOROUS 2.8 mg/dL (2.5-4.9)
[2021-01-03] MEDS: FLUCONAZOLE 100 MG TABLET (UD) PO SCH (09:54)
[2021-01-03] MEDS: TAMSULOSIN HCL 0.4 MG CAP PO SCH (09:54)
[2021-01-03] MEDS: DORZOLAMIDE 2% HCL OPHTHALMIC SOLUTION 10 ML BOTTLE OU SCH (09:55)
[2021-01-03] MEDS: LACTOBACILLUS ACIDOPHILUS 1 TABLET PO SCH (09:55)
[2021-01-03] MEDS: BRIMONIDINE TARTRATE 0.15% OPHTHALMIC 5 ML BOTTLE OU SCH (09:55)
[2021-01-03] MEDS: ENOXAPARIN NA (PORCINE) 40 MG/0.4 ML DISP.SYRIN SQ SCH (09:56)
[2021-01-03] MEDS ORDERED: INSULIN (NOVOLOG) ASPART 100 UNITS/ML 10ML VIAL ONE (11:15)
[2021-01-03 13:43] VITALS: BP 133/86; PULSE 98; TEMP 98.6
== END 2021-01-03 15:11 | disposition home or self-care (01) | DRG 862 ==
LOC: JER 13:29 → JERBED 21:44 → J7W 12-18 15:35
PROVIDERS: ADMIT Hospitalist; ATTEND Internal Medicine
DX: T81.40XA Infection following a procedure, unspecified, initial encounter (principal); R65.20 Severe sepsis without septic shock; N13.30 Unspecified hydronephrosis; N17.9 Acute kidney failure, unspecified; E87.2 Acidosis; N39.0 Urinary tract infection, site not specified; B49 Unspecified mycosis; T81.44XA Sepsis following a procedure, initial encounter; D69.6 Thrombocytopenia, unspecified; K76.0 Fatty (change of) liver, not elsewhere classified; D72.820 Lymphocytosis (symptomatic); E11.22 Type 2 diabetes mellitus with diabetic chronic kidney disease; I12.9 Hypertensive chronic kidney disease with stage 1 through stage 4 chronic kidney disease, or unspecified chronic kidney disease; N18.9 Chronic kidney disease, unspecified; E78.5 Hyperlipidemia, unspecified; Z79.4 Long term (current) use of insulin; K59.00 Constipation, unspecified; R74.01 Elevation of levels of liver transaminase levels; N40.1 Benign prostatic hyperplasia with lower urinary tract symptoms; R33.8 Other retention of urine; Y83.8 Other surgical procedures as the cause of abnormal reaction of the patient, or of later complication, without mention of misadventure at the time of the procedure
CPT/HCPCS: 36415; 71045-TC-FY; 74176-TC; 76705-TC; 76775-TC; 80048; 80053; 80074; 81003; 82550; 82553; 82607; 82746; 82803; 82962; 83036; 83605; 83690; 83735; 84100; 84439; 84443; 84484; 85025; 85027; 85610; 85730; 86850; 86900; 86901; 87040; 87077; 87086; 87106; 87497; 87799; 87804; 88300-TC; 93005; 93010; 93306-TC; 97116-GP; 97161-GP; 99291; C9803; J0131; J0637; J1644; U0003; U0005

== ENCOUNTER 2021-05-28 09:25 | Emergency (ER) | payer OTHER ==
[2021-05-28 09:37] VITALS: TEMP 98.9; BMI 29.7
[2021-05-28 12:24] LABS: BASO % 0.3 % (0-2.0); EOS % 0.2 % (0-4.5); HEMATOCRIT 43.3 % (35.4-49); HEMOGLOBIN 14.5 GM/dL (11.7-16.9); LYMPH % 24.9 % (8-40); MCH 26.8 pg (25.7-33.7); MCHC 33.5 g/dl (32.0-35.9); MEAN CELL VOLUME 80.1 fl (80-96); MEAN PLT VOLUME 6.7 fl (7.5-11.1); MONO % 10.6 % (3.8-10.2); PLATELET COUNT 121 10^3/uL (134-434); RDW 19.2 % (11.9-15.9); WHITE BLOOD COUNT 6.5 K/mm3 (4.0-10.0)
[2021-05-28 12:42] LABS: BLOOD UREA NITROGEN 17.2 mg/dL (7-18); CALCIUM 9.7 mg/dL (8.5-10.1)
[2021-05-28 12:45] LABS: CREATININE 1.2 mg/dL (0.55-1.3)
[2021-05-28 12:47] LABS: BILIRUBIN,TOTAL 0.9 mg/dL (0.2-1); TOT PROT 8.5 g/dl (6.4-8.2)
[2021-05-28 13:54] VITALS: BP 135/84; PULSE 88
[2021-05-28] MEDS ORDERED: ACETAMINOPHEN 500 MG TABLET (FP) PO ONE (15:09)
[2021-05-28] MEDS ORDERED: IBUPROFEN 400 MG TABLET (FP) PO ONE (15:09)
[2021-05-28] MEDS ORDERED: ACETAMINOPHEN 325 MG TABLET (FP) ONE (15:15)
[2021-05-28 15:49] LABS: EPI CELLS 1 /uL (0-25.1); HYALINE CASTS 0 /uL (0-3.1); PH,URINE 5.5 (5.0-8.0); URINE APPEARANCE CLOUDY; URINE BACTERIA 22 /uL (0-1359); URINE BILIRUBIN NEGATIVE (NEGATIVE); URINE COLOR YELLOW; URINE GLUCOSE (UA) 1+ (NEGATIVE); URINE KETONE NEGATIVE (NEGATIVE); URINE LEUK ESTERASE 2+ (NEGATIVE); URINE NITRITE NEGATIVE (NEGATIVE); URINE PROTEIN 2+ (NEGATIVE); URINE RBC 68 /uL (0-23.9); URINE UROBILINOGEN 0.2 mg/dL (0.2-1.0); URINE WBC 1513 /uL (0-25.8)
[2021-05-28] MEDS ORDERED: PHENAZOPYRIDINE HCL 100 MG TABLET (FP) PO ONE (16:54)
[2021-05-28] MEDS ORDERED: PHENAZOPYRIDINE HCL 100 MG TABLET (FP) ONE (17:24)
[2021-05-28 18:57] LABS: YEAST MODERATE (NEGATIVE)
== END 2021-05-28 18:36 | disposition home or self-care (01) ==
LOC: JER 09:25
DX: N39.0 Urinary tract infection, site not specified (principal)
CPT/HCPCS: 36415; 76856-TC; 80053; 81003; 85025; 87086; 99284-25

== ENCOUNTER 2021-06-21 19:27 | Inpatient (IN) | payer OTHER ==
[2021-06-21] MEDS ORDERED: LACTATED RINGERS SOLUTION 1000 ML INFUS.BAG IV ONE (20:50)
[2021-06-21 21:05] LABS: HEMATOCRIT 37.5 % (35.4-49); HEMOGLOBIN 12.7 GM/dL (11.7-16.9); MEAN CELL VOLUME 79.5 fl (80-96); MEAN PLT VOLUME 6.8 fl (7.5-11.1); RBC 4.72 M/mm3 (4.00-5.60); RDW 19.1 % (11.9-15.9); WHITE BLOOD COUNT 7.1 K/mm3 (4.0-10.0)
[2021-06-21 21:29] LABS: CALCIUM 8.3 mg/dL (8.5-10.1)
[2021-06-21 21:30] LABS: ALBUMIN 3.2 g/dl (3.4-5.0); BLOOD UREA NITROGEN 12.9 mg/dL (7-18)
[2021-06-21 21:33] LABS: EPI CELLS 22 /uL (0-25.1); HYALINE CASTS 54 /uL (0-3.1); URINE APPEARANCE TURBID; URINE BILIRUBIN 1+ (NEGATIVE); URINE COLOR RED; URINE GLUCOSE (UA) 3+ (NEGATIVE); URINE KETONE NEGATIVE (NEGATIVE); URINE LEUK ESTERASE 3+ (NEGATIVE); URINE NITRITE POSITIVE (NEGATIVE); URINE PROTEIN 3+ (NEGATIVE); URINE UROBILINOGEN 0.2 mg/dL (0.2-1.0); URINE WBC 4535 /uL (0-25.8)
[2021-06-21 21:33] LABS: CREATININE 1.1 mg/dL (0.55-1.3)
[2021-06-21 21:35] LABS: BILIRUBIN,TOTAL 0.4 mg/dL (0.2-1); TOT PROT 7.8 g/dl (6.4-8.2)
[2021-06-21 21:51] LABS: ANISOCYTOSIS 2+; MACROCYTOSIS 0; PLATELET ESTIMATE DECREASED
[2021-06-21] MEDS ORDERED: CEFTRIAXONE 1,000 MG in DEXTROSE 5%-WATER - 50 ML IVPB ONE (21:54)
[2021-06-21 22:01] LABS: PLATELET COUNT 166 10^3/uL (134-434)
[2021-06-21] MEDS ORDERED: CEFTRIAXONE 1 GM/50 ML BAG ONE (22:08)
[2021-06-21 22:19] LABS: URINE BACTERIA 0.9 /uL (0-1359); URINE RBC 37650.7 /uL (0-23.9)
[2021-06-21] MEDS ORDERED: ONDANSETRON 4 MG/2 ML VIAL IVPUSH ONE (23:43)
[2021-06-22] MEDS ORDERED: SODIUM CHLORIDE 0.9% 1000 ML INFUS.BAG IV ONE (03:00)
[2021-06-22] MEDS ORDERED: SODIUM CHLORIDE 500 ML IV SCH (03:30)
[2021-06-22] MEDS ORDERED: SODIUM CHLORIDE 250 ML IV SCH (03:44)
[2021-06-22] MEDS: SODIUM CHLORIDE 500 ML IV SCH ×2 (05:24→18:38)
[2021-06-22 06:50] VITALS: BMI 28.8
[2021-06-22] MEDS ORDERED: DEXTROSE 5%-WATER - 50 ML IVPB ONE (08:10)
[2021-06-22] MEDS ORDERED: cefTRIAXone SODIUM 1 GM VIAL ONE (08:10)
[2021-06-22] MEDS: CEFTRIAXONE 1 GM in DEXTROSE 5%-WATER - 50 ML IVPB SCH (09:01)
[2021-06-22] MEDS ORDERED: ACETAMINOPHEN 1000 MG/100 ML VIAL (NON FORMULARY) IVPB ONE (21:28)
[2021-06-22] MEDS ORDERED: INSULIN SLIDING SCALE (NOVOLOG) 1 VIAL SQ SCH (22:00)
[2021-06-22] MEDS: INSULIN SLIDING SCALE (NOVOLOG) 1 VIAL SQ SCH (23:16)
[2021-06-23] MEDS: SODIUM CHLORIDE 500 ML IV SCH ×2 (05:13→09:42)
[2021-06-23] MEDS: INSULIN SLIDING SCALE (NOVOLOG) 1 VIAL SQ SCH ×4 (05:59→21:23)
[2021-06-23 09:03] LABS: HEMATOCRIT 35.9 % (35.4-49); HEMOGLOBIN 11.9 GM/dL (11.7-16.9); MCH 26.4 pg (25.7-33.7); MCHC 33.1 g/dl (32.0-35.9); MEAN CELL VOLUME 79.7 fl (80-96); MEAN PLT VOLUME 6.7 fl (7.5-11.1); PLATELET COUNT 170 10^3/uL (134-434); RDW 19.1 % (11.9-15.9)
[2021-06-23 09:08] LABS: INR 1.12 (0.83-1.09); PROTHROMBIN TIME (PATIENT) 13.8 SEC (9.7-13.0)
[2021-06-23] MEDS ORDERED: DEXTROSE 5%-WATER - 50 ML IVPB ONE (09:12)
[2021-06-23] MEDS ORDERED: cefTRIAXone SODIUM 1 GM VIAL ONE (09:12)
[2021-06-23 09:35] LABS: ALBUMIN 2.8 g/dl (3.4-5.0); BLOOD UREA NITROGEN 13.2 mg/dL (7-18); MAGNESIUM 2.4 mg/dL (1.8-2.4)
[2021-06-23 09:39] LABS: PHOSPHOROUS 2.8 mg/dL (2.5-4.9)
[2021-06-23 09:40] LABS: BILIRUBIN,TOTAL 0.4 mg/dL (0.2-1); TOT PROT 6.9 g/dl (6.4-8.2)
[2021-06-23] MEDS: CEFTRIAXONE 1 GM in DEXTROSE 5%-WATER - 50 ML IVPB SCH (09:42)
[2021-06-23] MEDS: TAMSULOSIN HCL 0.4 MG CAP PO SCH (09:45)
[2021-06-23] MEDS: BRIMONIDINE TARTRATE 0.15% OPHTHALMIC 5 ML BOTTLE OU SCH (21:24)
[2021-06-23] MEDS: DORZOLAMIDE 2% HCL OPHTHALMIC SOLUTION 10 ML BOTTLE OU SCH (21:24)
[2021-06-23] MEDS ORDERED: PATIENT'S OWN MEDICATION (NON-FORMULARY) (Brimonidine/Dorzolamide/Pf [Brimonidine 0.15%-Do OU SCH (22:00)
[2021-06-24] MEDS: SODIUM CHLORIDE 500 ML IV SCH ×2 (04:10→09:58)
[2021-06-24] MEDS: INSULIN SLIDING SCALE (NOVOLOG) 1 VIAL SQ SCH ×4 (06:13→21:35)
[2021-06-24] MEDS: TAMSULOSIN HCL 0.4 MG CAP PO SCH (08:48)
[2021-06-24] MEDS ORDERED: cefTRIAXone SODIUM 1 GM VIAL ONE (09:53)
[2021-06-24] MEDS ORDERED: DEXTROSE 5%-WATER - 50 ML IVPB ONE (09:53)
[2021-06-24] MEDS: CEFTRIAXONE 1 GM in DEXTROSE 5%-WATER - 50 ML IVPB SCH (09:59)
[2021-06-24] MEDS: BRIMONIDINE TARTRATE 0.15% OPHTHALMIC 5 ML BOTTLE OU SCH ×2 (10:02→21:35)
[2021-06-24] MEDS: DORZOLAMIDE 2% HCL OPHTHALMIC SOLUTION 10 ML BOTTLE OU SCH ×2 (10:03→21:36)
[2021-06-24] MEDS: NITROFURANTOIN MACROCRYSTAL 50 MG CAPSULE (FP) PO SCH ×2 (12:55→17:40)
[2021-06-25] MEDS: NITROFURANTOIN MACROCRYSTAL 50 MG CAPSULE (FP) PO SCH ×2 (00:55→06:05)
[2021-06-25] MEDS: SODIUM CHLORIDE 500 ML IV SCH ×2 (01:43→05:14)
[2021-06-25] MEDS: INSULIN SLIDING SCALE (NOVOLOG) 1 VIAL SQ SCH (06:12)
[2021-06-25 09:42] VITALS: BP 123/81; PULSE 87; TEMP 99
[2021-06-25] MEDS: TAMSULOSIN HCL 0.4 MG CAP PO SCH (09:48)
== END 2021-06-25 09:48 | disposition home or self-care (01) | DRG 699 ==
LOC: JER 19:27 → JERBED 06-22 00:31 → J5S 06-22 05:12
PROVIDERS: ADMIT Internal Medicine
DX: T83.511A Infection and inflammatory reaction due to indwelling urethral catheter, initial encounter (principal); N13.30 Unspecified hydronephrosis; N39.0 Urinary tract infection, site not specified; N40.1 Benign prostatic hyperplasia with lower urinary tract symptoms; R33.8 Other retention of urine; E11.9 Type 2 diabetes mellitus without complications; E78.5 Hyperlipidemia, unspecified; D69.6 Thrombocytopenia, unspecified; Y83.9 Surgical procedure, unspecified as the cause of abnormal reaction of the patient, or of later complication, without mention of misadventure at the time of the procedure
CPT/HCPCS: 36415; 74177-TC; 76856-TC; 80053; 81003; 82962; 83036; 83735; 84100; 84153; 85025; 85027; 85610; 85730; 86850; 86900; 86901; 87040; 87086; 93005; 93010; 99284-25; 99285-25; C9803; J0131; Q9967; U0003; U0005

== ENCOUNTER 2021-07-23 04:16 | Emergency (ER) | payer OTHER ==
[2021-07-23 04:30] VITALS: BMI 26.9
[2021-07-23 05:24] LABS: BASO % 0.7 % (0-2.0); EOS % 0.4 % (0-4.5); HEMATOCRIT 31.3 % (35.4-49); HEMOGLOBIN 10.5 GM/dL (11.7-16.9); LYMPH % 19.3 % (8-40); MCH 24.9 pg (25.7-33.7); MCHC 33.4 g/dl (32.0-35.9); MEAN CELL VOLUME 74.5 fl (80-96); MEAN PLT VOLUME 6.4 fl (7.5-11.1); MONO % 14.8 % (3.8-10.2); NEUT % 64.8 % (42.8-82.8); PLATELET COUNT 203 10^3/uL (134-434); RDW 20.2 % (11.9-15.9); WHITE BLOOD COUNT 5.5 K/mm3 (4.0-10.0)
[2021-07-23 05:43] LABS: CHLORIDE 100 mmol/L (98-107); SODIUM 136 mmol/L (136-145)
[2021-07-23 05:45] LABS: CALCIUM 8.6 mg/dL (8.5-10.1)
[2021-07-23 05:46] LABS: ALBUMIN 2.6 g/dl (3.4-5.0); ANION GAP 8 MMOL/L (8-16); BLOOD UREA NITROGEN 12.7 mg/dL (7-18); CO2 28 mmol/L (21-32); GLUCOSE,RANDOM 95 mg/dL (74-106)
[2021-07-23 05:48] LABS: SGPT/ALT 19 U/L (13-61)
[2021-07-23 05:49] LABS: CREATININE 1.1 mg/dL (0.55-1.3); SGOT/AST 53 U/L (15-37)
[2021-07-23 05:50] LABS: BILIRUBIN,TOTAL 0.4 mg/dL (0.2-1); TOT PROT 7.4 g/dl (6.4-8.2)
[2021-07-23 05:52] LABS: ALK PHOS 82 U/L (45-117)
[2021-07-23 05:57] VITALS: TEMP 99.1
[2021-07-23 06:14] LABS: INR 1.31 (0.83-1.09); PROTHROMBIN TIME (PATIENT) 15.4 SEC (9.7-13.0)
[2021-07-23 06:17] LABS: ACTIVATED PTT 26.7 SECONDS (25.2-36.5)
[2021-07-23 06:21] LABS: URINE APPEARANCE TURBID; URINE COLOR RED
[2021-07-23 06:24] LABS: EPI CELLS 315.4 /uL (0-25.1); HYALINE CASTS 33.2 /uL (0-3.1); URINE BACTERIA 4.2 /uL (0-1359); URINE RBC 1278.5 /uL (0-23.9); URINE WBC 111.1 /uL (0-25.8)
[2021-07-23] MEDS ORDERED: ACETAMINOPHEN 1000 MG/100 ML VIAL IVPB ONE (06:58)
[2021-07-23] MEDS ORDERED: ACETAMINOPHEN INJECTION 100 ML IVPB ONE (06:59)
[2021-07-23 10:05] LABS: EPI CELLS 2 /uL (0-25.1); HYALINE CASTS 0 /uL (0-3.1); PH,URINE 5.5 (5.0-8.0); URINE APPEARANCE CLOUDY; URINE BILIRUBIN NEGATIVE (NEGATIVE); URINE COLOR RED; URINE GLUCOSE (UA) 3+ (NEGATIVE); URINE KETONE TRACE (NEGATIVE); URINE LEUK ESTERASE 2+ (NEGATIVE); URINE NITRITE NEGATIVE (NEGATIVE); URINE PROTEIN 3+ (NEGATIVE); URINE UROBILINOGEN 0.2 mg/dL (0.2-1.0)
[2021-07-23 10:43] VITALS: BP 141/78; PULSE 100
[2021-07-23 10:59] LABS: URINE RBC BLODY SAMPLE /uL (0-23.9); URINE WBC MODERATE /uL (0-25.8)
[2021-07-23 11:00] LABS: URINE BACTERIA MANY /uL (0-1359)
== END 2021-07-23 10:44 | disposition home or self-care (01) ==
LOC: JER 04:16
PROC: 3E033GC Introduction of Other Therapeutic Substance into Peripheral Vein, Percutaneous Approach (ICD-10-PCS; principal; 2021-07-23)
DX: R31.0 Gross hematuria (principal)
CPT/HCPCS: 36415; 80053; 81003; 82962; 84484; 85025; 85610; 85730; 86850; 86900; 86901; 87086; 93005; 93010; 99284-25; C9803; J0131; U0003; U0005

== ENCOUNTER 2021-08-20 19:19 | Inpatient (IN) | payer OTHER ==
[2021-08-20 20:57] LABS: BASO % 0.3 % (0-2.0); EOS % 0.2 % (0-4.5); HEMATOCRIT 31.4 % (35.4-49); HEMOGLOBIN 10.4 GM/dL (11.7-16.9); LYMPH % 20.8 % (8-40); MEAN CELL VOLUME 72.6 fl (80-96); MONO % 11.1 % (3.8-10.2); NEUT % 67.6 % (42.8-82.8); PLATELET COUNT 202 10^3/uL (134-434); RBC 4.32 M/mm3 (4.00-5.60); WHITE BLOOD COUNT 6.2 K/mm3 (4.0-10.0)
[2021-08-20 21:07] LABS: INR 1.37 (0.83-1.09); PROTHROMBIN TIME (PATIENT) 16.1 SEC (9.7-13.0)
[2021-08-20 21:09] LABS: ACTIVATED PTT 27.9 SECONDS (25.2-36.5)
[2021-08-20] MEDS ORDERED: ACETAMINOPHEN 1000 MG/100 ML VIAL IVPB ONE (21:19)
[2021-08-20] MEDS ORDERED: ACETAMINOPHEN INJECTION 100 ML IVPB ONE (21:27)
[2021-08-20 22:06] LABS: ALBUMIN 2.8 g/dl (3.4-5.0); BLOOD UREA NITROGEN 9.9 mg/dL (7-18); CALCIUM 8.7 mg/dL (8.5-10.1)
[2021-08-20 22:09] LABS: CREATININE 1.4 mg/dL (0.55-1.3)
[2021-08-20 22:11] LABS: BILIRUBIN,TOTAL 0.4 mg/dL (0.2-1); TOT PROT 7.2 g/dl (6.4-8.2)
[2021-08-20 22:15] LABS: ANISOCYTOSIS 2+; MACROCYTOSIS 0; PLATELET ESTIMATE NORMAL
[2021-08-20] MEDS ORDERED: SODIUM CHLORIDE 0.9% 500 ML INFUS.BAG IV ONE (22:48)
[2021-08-20 23:00] LABS: EPI CELLS 1 /uL (0-25.1); HYALINE CASTS 0 /uL (0-3.1); URINE APPEARANCE TURBID; URINE BILIRUBIN 3+ (NEGATIVE); URINE COLOR RED; URINE GLUCOSE (UA) 2+ (NEGATIVE); URINE KETONE Error (NEGATIVE); URINE LEUK ESTERASE 3+ (NEGATIVE); URINE NITRITE POSITIVE (NEGATIVE); URINE PROTEIN 2+ (NEGATIVE); URINE RBC 1 /uL (0-23.9); URINE UROBILINOGEN 0.2 mg/dL (0.2-1.0); URINE WBC 0 /uL (0-25.8)
[2021-08-21] MEDS ORDERED: LIDOCAINE HCL 2% JELLY 10 ML CARTRIDGE UR ONE (00:08)
[2021-08-21] MEDS ORDERED: SODIUM CHLORIDE 0.9% 500 ML INFUS.BAG IV ONE (00:31)
[2021-08-21] MEDS ORDERED: LIDOCAINE HCL 2% JELLY 10 ML CARTRIDGE ONE (00:32)
[2021-08-21 02:30] LABS: BASO % 0.2 % (0-2.0); EOS % 0.2 % (0-4.5); HEMATOCRIT 24.1 % (35.4-49); HEMOGLOBIN 7.7 GM/dL (11.7-16.9); LYMPH % 18.1 % (8-40); MCH 23.5 pg (25.7-33.7); MCHC 32.1 g/dl (32.0-35.9); MEAN CELL VOLUME 73.2 fl (80-96); MEAN PLT VOLUME 6.4 fl (7.5-11.1); MONO % 18.9 % (3.8-10.2); NEUT % 62.6 % (42.8-82.8); PLATELET COUNT 150 10^3/uL (134-434); RBC 3.29 M/mm3 (4.00-5.60); RDW 20.6 % (11.9-15.9); WHITE BLOOD COUNT 6.5 K/mm3 (4.0-10.0)
[2021-08-21] MEDS: DEXTROSE 5%-0.45% SALINE 1,000 ML IV SCH ×2 (10:12→22:29)
[2021-08-21] MEDS: INSULIN SLIDING SCALE (NOVOLOG) 1 VIAL SQ SCH ×3 (10:57→21:29)
[2021-08-21] MEDS: TAMSULOSIN HCL 0.4 MG CAP PO SCH (11:00)
[2021-08-21] MEDS ORDERED: ACETAMINOPHEN 325 MG TABLET (FP) PO PRN (11:10)
[2021-08-21] MEDS ORDERED: PIPERACILLIN/TAZOB 3.375 GM 3.375 GM in DEXTROSE 5%-WATER - 50 ML IVPB SCH (13:30)
[2021-08-21] MEDS ORDERED: DEXTROSE 5%-WATER - 50 ML IVPB ONE ×2 (13:53→17:13)
[2021-08-21] MEDS ORDERED: PIPERACILLIN/TAZOBACTAM 3.375 GM VIAL IVPB ONE ×2 (13:53→17:13)
[2021-08-21] MEDS: oxyCODONE HCL 5 MG TABLET PO PRN (14:07)
[2021-08-21 15:27] LABS: EPI CELLS 6 /uL (0-25.1); HYALINE CASTS 0 /uL (0-3.1); URINE APPEARANCE CLOUDY; URINE BILIRUBIN 3+ (NEGATIVE); URINE COLOR RED; URINE GLUCOSE (UA) 2+ (NEGATIVE); URINE PROTEIN 3+ (NEGATIVE); URINE RBC 1096 /uL (0-23.9); URINE UROBILINOGEN 0.2 mg/dL (0.2-1.0); URINE WBC 0 /uL (0-25.8)
[2021-08-21] MEDS ORDERED: ONDANSETRON 4 MG/2 ML VIAL IVPUSH PRN (16:26)
[2021-08-21] MEDS: ACETAMINOPHEN 1000 MG/100 ML VIAL IVPB PRN ×2 (16:40→22:04)
[2021-08-21 16:41] LABS: BASO % 0.2 % (0-2.0); EOS % 0.2 % (0-4.5); HEMATOCRIT 26.9 % (35.4-49); HEMOGLOBIN 8.7 GM/dL (11.7-16.9); LYMPH % 7.9 % (8-40); MCH 23.6 pg (25.7-33.7); MCHC 32.3 g/dl (32.0-35.9); MEAN CELL VOLUME 73.1 fl (80-96); MEAN PLT VOLUME 6.2 fl (7.5-11.1); MONO % 4.2 % (3.8-10.2); NEUT % 87.5 % (42.8-82.8); PLATELET COUNT 155 10^3/uL (134-434); RBC 3.68 M/mm3 (4.00-5.60); RDW 20.9 % (11.9-15.9); WHITE BLOOD COUNT 4.1 K/mm3 (4.0-10.0)
[2021-08-21 16:58] LABS: ALBUMIN 2.3 g/dl (3.4-5.0); BLOOD UREA NITROGEN 8.2 mg/dL (7-18)
[2021-08-21 17:01] LABS: CREATININE 1.1 mg/dL (0.55-1.3)
[2021-08-21 17:03] LABS: BILIRUBIN,TOTAL 0.4 mg/dL (0.2-1); TOT PROT 6.3 g/dl (6.4-8.2)
[2021-08-21] MEDS: PIPERACILLIN/TAZOB 3.375 GM 3.375 GM in DEXTROSE 5%-WATER - 50 ML IVPB SCH (17:39)
[2021-08-21 19:53] VITALS: BMI 27.5
[2021-08-22] MEDS ORDERED: PIPERACILLIN/TAZOBACTAM 3.375 GM VIAL IVPB ONE ×3 (01:39→17:32)
[2021-08-22] MEDS ORDERED: DEXTROSE 5%-WATER - 50 ML IVPB ONE ×3 (01:39→17:32)
[2021-08-22] MEDS: PIPERACILLIN/TAZOB 3.375 GM 3.375 GM in DEXTROSE 5%-WATER - 50 ML IVPB SCH ×3 (01:47→17:45)
[2021-08-22] MEDS: ACETAMINOPHEN 325 MG TABLET (FP) PO PRN ×3 (04:07→17:46)
[2021-08-22 04:30] LABS: HEMATOCRIT 24.8 % (35.4-49); MCH 23.5 pg (25.7-33.7); MCHC 32.1 g/dl (32.0-35.9); MEAN CELL VOLUME 73.3 fl (80-96); MEAN PLT VOLUME 6.2 fl (7.5-11.1); PLATELET COUNT 145 10^3/uL (134-434); RBC 3.39 M/mm3 (4.00-5.60); RDW 20.7 % (11.9-15.9); WHITE BLOOD COUNT 3.6 K/mm3 (4.0-10.0)
[2021-08-22] MEDS: INSULIN SLIDING SCALE (NOVOLOG) 1 VIAL SQ SCH ×3 (06:28→21:38)
[2021-08-22 09:22] LABS: HEMATOCRIT 21.6 % (35.4-49); HEMOGLOBIN 7.1 GM/dL (11.7-16.9); MEAN CELL VOLUME 72.8 fl (80-96); MEAN PLT VOLUME 6.3 fl (7.5-11.1); PLATELET COUNT 148 10^3/uL (134-434); RBC 2.97 M/mm3 (4.00-5.60); RDW 20.5 % (11.9-15.9); WHITE BLOOD COUNT 3.5 K/mm3 (4.0-10.0)
[2021-08-22 09:54] LABS: CALCIUM 7.7 mg/dL (8.5-10.1)
[2021-08-22 09:55] LABS: ALBUMIN 1.9 g/dl (3.4-5.0); ANISOCYTOSIS 1+; BLOOD UREA NITROGEN 10.5 mg/dL (7-18); MACROCYTOSIS 0; PLATELET ESTIMATE DECREASED
[2021-08-22 09:58] LABS: BILIRUBIN,TOTAL 0.4 mg/dL (0.2-1); CREATININE 1.5 mg/dL (0.55-1.3)
[2021-08-22 10:00] LABS: TOT PROT 5.4 g/dl (6.4-8.2)
[2021-08-22] MEDS: TAMSULOSIN HCL 0.4 MG CAP PO SCH (10:26)
[2021-08-22] MEDS: DEXTROSE 5%-0.45% SALINE 1,000 ML IV SCH (10:26)
[2021-08-22] MEDS: oxyCODONE HCL 5 MG TABLET PO PRN (22:50)
[2021-08-23] MEDS ORDERED: DEXTROSE 5%-WATER - 50 ML IVPB ONE ×3 (00:18→17:06)
[2021-08-23] MEDS ORDERED: PIPERACILLIN/TAZOBACTAM 3.375 GM VIAL IVPB ONE ×3 (00:18→17:06)
[2021-08-23] MEDS: PIPERACILLIN/TAZOB 3.375 GM 3.375 GM in DEXTROSE 5%-WATER - 50 ML IVPB SCH ×3 (01:05→17:07)
[2021-08-23] MEDS: ACETAMINOPHEN 325 MG TABLET (FP) PO PRN (02:30)
[2021-08-23] MEDS: DEXTROSE 5%-0.45% SALINE 1,000 ML IV SCH ×2 (06:22→15:18)
[2021-08-23] MEDS: INSULIN SLIDING SCALE (NOVOLOG) 1 VIAL SQ SCH ×4 (06:27→21:25)
[2021-08-23] MEDS: oxyCODONE HCL 5 MG TABLET PO PRN (06:32)
[2021-08-23] MEDS: TAMSULOSIN HCL 0.4 MG CAP PO SCH (08:46)
[2021-08-23] MEDS: ACETAMINOPHEN 325 MG TABLET (FP) PO SCH ×2 (15:23→19:42)
[2021-08-23 17:59] LABS: BASO % 0.2 % (0-2.0); EOS % 0.3 % (0-4.5); HEMATOCRIT 23.1 % (35.4-49); HEMOGLOBIN 7.4 GM/dL (11.7-16.9); MCH 22.9 pg (25.7-33.7); MCHC 31.9 g/dl (32.0-35.9); MEAN PLT VOLUME 6.3 fl (7.5-11.1); MONO % 13.9 % (3.8-10.2); NEUT % 66.6 % (42.8-82.8); PLATELET COUNT 157 10^3/uL (134-434); RBC 3.21 M/mm3 (4.00-5.60); RDW 20.5 % (11.9-15.9); WHITE BLOOD COUNT 4.6 K/mm3 (4.0-10.0)
[2021-08-23 18:22] LABS: CALCIUM 7.9 mg/dL (8.5-10.1)
[2021-08-23 18:23] LABS: ALBUMIN 2.1 g/dl (3.4-5.0); MAGNESIUM 2.4 mg/dL (1.8-2.4)
[2021-08-23 18:27] LABS: BILIRUBIN,TOTAL 0.3 mg/dL (0.2-1); TOT PROT 5.9 g/dl (6.4-8.2)
[2021-08-24] MEDS: ACETAMINOPHEN 325 MG TABLET (FP) PO SCH ×4 (01:31→18:21)
[2021-08-24] MEDS: oxyCODONE HCL 5 MG TABLET PO PRN ×2 (01:32→10:09)
[2021-08-24] MEDS ORDERED: PIPERACILLIN/TAZOBACTAM 3.375 GM VIAL IVPB ONE ×3 (02:23→19:44)
[2021-08-24] MEDS: PIPERACILLIN/TAZOB 3.375 GM 3.375 GM in DEXTROSE 5%-WATER - 50 ML IVPB SCH ×3 (02:27→19:46)
[2021-08-24] MEDS: INSULIN SLIDING SCALE (NOVOLOG) 1 VIAL SQ SCH ×4 (06:04→22:50)
[2021-08-24] MEDS ORDERED: DEXTROSE 5%-WATER - 50 ML IVPB ONE ×2 (09:12→19:44)
[2021-08-24] MEDS: DEXTROSE 5%-0.45% SALINE 1,000 ML IV SCH (10:10)
[2021-08-24] MEDS: TAMSULOSIN HCL 0.4 MG CAP PO SCH (10:10)
[2021-08-24 14:30] LABS: BASO % 0.6 % (0-2.0); EOS % 0.6 % (0-4.5); HEMATOCRIT 22.5 % (35.4-49); HEMOGLOBIN 7.2 GM/dL (11.7-16.9); LYMPH % 18.1 % (8-40); MCH 23.2 pg (25.7-33.7); MEAN CELL VOLUME 72.4 fl (80-96); MEAN PLT VOLUME 6.4 fl (7.5-11.1); MONO % 15.9 % (3.8-10.2); NEUT % 64.8 % (42.8-82.8); PLATELET COUNT 148 10^3/uL (134-434); RBC 3.11 M/mm3 (4.00-5.60); RDW 20.4 % (11.9-15.9); WHITE BLOOD COUNT 3.9 K/mm3 (4.0-10.0)
[2021-08-24 17:22] LABS: ALBUMIN 2.1 g/dl (3.4-5.0); BLOOD UREA NITROGEN 8.8 mg/dL (7-18); MAGNESIUM 2.2 mg/dL (1.8-2.4)
[2021-08-24 17:25] LABS: CREATININE 1.1 mg/dL (0.55-1.3)
[2021-08-24 17:26] LABS: BILIRUBIN,TOTAL 0.3 mg/dL (0.2-1); TOT PROT 5.9 g/dl (6.4-8.2)
[2021-08-24 20:30] LABS: EPI CELLS 2 /uL (0-25.1); HYALINE CASTS 1 /uL (0-3.1); URINE APPEARANCE CLEAR; URINE BACTERIA 7 /uL (0-1359); URINE BILIRUBIN NEGATIVE (NEGATIVE); URINE COLOR YELLOW; URINE GLUCOSE (UA) TRACE (NEGATIVE); URINE KETONE NEGATIVE (NEGATIVE); URINE LEUK ESTERASE 2+ (NEGATIVE); URINE NITRITE NEGATIVE (NEGATIVE); URINE PROTEIN NEGATIVE (NEGATIVE); URINE RBC 161 /uL (0-23.9); URINE UROBILINOGEN 0.2 mg/dL (0.2-1.0); URINE WBC 680 /uL (0-25.8)
[2021-08-24 21:03] LABS: HEMATOCRIT 23.7 % (35.4-49); HEMOGLOBIN 7.8 GM/dL (11.7-16.9); MCH 24.3 pg (25.7-33.7); MCHC 33.1 g/dl (32.0-35.9); MEAN CELL VOLUME 73.5 fl (80-96); MEAN PLT VOLUME 6.5 fl (7.5-11.1); PLATELET COUNT 153 10^3/uL (134-434); RBC 3.22 M/mm3 (4.00-5.60); RDW 20.6 % (11.9-15.9); WHITE BLOOD COUNT 5.2 K/mm3 (4.0-10.0)
[2021-08-24 21:24] LABS: CALCIUM 8.1 mg/dL (8.5-10.1)
[2021-08-24 21:26] LABS: ALBUMIN 2.1 g/dl (3.4-5.0); BLOOD UREA NITROGEN 6.6 mg/dL (7-18); MAGNESIUM 2.1 mg/dL (1.8-2.4)
[2021-08-24 21:30] LABS: BILIRUBIN,TOTAL 0.3 mg/dL (0.2-1); TOT PROT 5.9 g/dl (6.4-8.2)
[2021-08-24 21:50] LABS: ANISOCYTOSIS 2+; MACROCYTOSIS 1+; PLATELET ESTIMATE DECREASED
[2021-08-25] MEDS: ACETAMINOPHEN 325 MG TABLET (FP) PO SCH ×4 (00:55→19:02)
[2021-08-25] MEDS ORDERED: PIPERACILLIN/TAZOBACTAM 3.375 GM VIAL IVPB ONE ×3 (02:14→17:16)
[2021-08-25] MEDS ORDERED: DEXTROSE 5%-WATER - 50 ML IVPB ONE ×3 (02:15→17:16)
[2021-08-25] MEDS: PIPERACILLIN/TAZOB 3.375 GM 3.375 GM in DEXTROSE 5%-WATER - 50 ML IVPB SCH ×3 (02:20→17:25)
[2021-08-25] MEDS: INSULIN SLIDING SCALE (NOVOLOG) 1 VIAL SQ SCH ×4 (06:12→21:16)
[2021-08-25] MEDS: DEXTROSE 5%-0.45% SALINE 1,000 ML IV SCH ×2 (08:05→17:36)
[2021-08-25] MEDS: TAMSULOSIN HCL 0.4 MG CAP PO SCH (10:05)
[2021-08-25] MEDS: oxyCODONE HCL 5 MG TABLET PO PRN ×2 (11:55→23:00)
[2021-08-26] MEDS ORDERED: PIPERACILLIN/TAZOBACTAM 3.375 GM VIAL IVPB ONE ×3 (01:19→17:38)
[2021-08-26] MEDS ORDERED: DEXTROSE 5%-WATER - 50 ML IVPB ONE ×3 (01:20→17:38)
[2021-08-26] MEDS: ACETAMINOPHEN 325 MG TABLET (FP) PO SCH ×4 (01:23→19:40)
[2021-08-26] MEDS: PIPERACILLIN/TAZOB 3.375 GM 3.375 GM in DEXTROSE 5%-WATER - 50 ML IVPB SCH ×3 (01:24→18:04)
[2021-08-26] MEDS: DEXTROSE 5%-0.45% SALINE 1,000 ML IV SCH (04:51)
[2021-08-26] MEDS: INSULIN SLIDING SCALE (NOVOLOG) 1 VIAL SQ SCH ×4 (06:18→21:09)
[2021-08-26] MEDS: TAMSULOSIN HCL 0.4 MG CAP PO SCH (09:02)
[2021-08-26] MEDS ORDERED: INSULIN (NOVOLOG) ASPART 100 UNITS/ML 10ML VIAL ONE (11:47)
[2021-08-26 12:24] LABS: BASO % 0.3 % (0-2.0); EOS % 0.5 % (0-4.5); HEMATOCRIT 22.1 % (35.4-49); LYMPH % 30.6 % (8-40); MCHC 31.7 g/dl (32.0-35.9); MEAN CELL VOLUME 75.7 fl (80-96); MEAN PLT VOLUME 6.5 fl (7.5-11.1); MONO % 13.3 % (3.8-10.2); NEUT % 55.3 % (42.8-82.8); PLATELET COUNT 158 10^3/uL (134-434); RBC 2.91 M/mm3 (4.00-5.60); RDW 20.9 % (11.9-15.9); WHITE BLOOD COUNT 3.5 K/mm3 (4.0-10.0)
[2021-08-26 16:21] LABS: CALCIUM 8.3 mg/dL (8.5-10.1)
[2021-08-26 16:22] LABS: BLOOD UREA NITROGEN 4.8 mg/dL (7-18)
[2021-08-26 16:25] LABS: CREATININE 1.1 mg/dL (0.55-1.3)
[2021-08-26] MEDS: MINERAL OIL/PETROLAT/WATER TOPICAL CREAM 454 GM JAR TP PRN (19:56)
[2021-08-26] MEDS: oxyCODONE HCL 5 MG TABLET PO PRN (23:59)
[2021-08-27] MEDS ORDERED: DEXTROSE 5%-WATER - 50 ML IVPB ONE ×2 (01:22→09:31)
[2021-08-27] MEDS ORDERED: PIPERACILLIN/TAZOBACTAM 3.375 GM VIAL IVPB ONE ×2 (01:22→09:31)
[2021-08-27] MEDS: ACETAMINOPHEN 325 MG TABLET (FP) PO SCH ×4 (01:25→20:55)
[2021-08-27] MEDS: PIPERACILLIN/TAZOB 3.375 GM 3.375 GM in DEXTROSE 5%-WATER - 50 ML IVPB SCH ×2 (01:26→09:39)
[2021-08-27] MEDS ORDERED: INSULIN (NOVOLOG) ASPART 100 UNITS/ML 10ML VIAL ONE ×2 (05:28→20:52)
[2021-08-27] MEDS: INSULIN SLIDING SCALE (NOVOLOG) 1 VIAL SQ SCH ×4 (06:14→21:21)
[2021-08-27] MEDS: TAMSULOSIN HCL 0.4 MG CAP PO SCH (09:30)
[2021-08-27] MEDS: MINERAL OIL/PETROLAT/WATER TOPICAL CREAM 454 GM JAR TP PRN (15:21)
[2021-08-27] MEDS: oxyCODONE HCL 5 MG TABLET PO PRN (16:21)
[2021-08-27] MEDS ORDERED: LATANOPROST 0.005% OPHTH SOLN 2.5ML BOTTLE OU SCH (22:00)
[2021-08-28] MEDS: ACETAMINOPHEN 325 MG TABLET (FP) PO SCH ×3 (01:28→12:15)
[2021-08-28] MEDS: INSULIN SLIDING SCALE (NOVOLOG) 1 VIAL SQ SCH ×2 (06:00→12:15)
[2021-08-28 08:37] LABS: BASO % 0.5 % (0-2.0); EOS % 0.3 % (0-4.5); HEMATOCRIT 25.1 % (35.4-49); HEMOGLOBIN 8.2 GM/dL (11.7-16.9); LYMPH % 14.7 % (8-40); MCH 23.8 pg (25.7-33.7); MCHC 32.7 g/dl (32.0-35.9); MEAN CELL VOLUME 72.8 fl (80-96); MEAN PLT VOLUME 6.8 fl (7.5-11.1); MONO % 9.7 % (3.8-10.2); NEUT % 74.8 % (42.8-82.8); PLATELET COUNT 269 10^3/uL (134-434); RBC 3.45 M/mm3 (4.00-5.60); WHITE BLOOD COUNT 6.6 K/mm3 (4.0-10.0)
[2021-08-28] MEDS: TAMSULOSIN HCL 0.4 MG CAP PO SCH (08:44)
[2021-08-28 08:59] LABS: CALCIUM 8.8 mg/dL (8.5-10.1)
[2021-08-28 09:00] LABS: BLOOD UREA NITROGEN 6.6 mg/dL (7-18); MAGNESIUM 2.3 mg/dL (1.8-2.4)
[2021-08-28 09:04] LABS: BILIRUBIN,TOTAL 0.5 mg/dL (0.2-1)
[2021-08-28 09:05] LABS: TOT PROT 6.6 g/dl (6.4-8.2)
[2021-08-28 09:09] LABS: ALBUMIN 2.3 g/dl (3.4-5.0)
[2021-08-28 09:25] LABS: ANISOCYTOSIS 3+; MACROCYTOSIS 0; PLATELET ESTIMATE NORMAL
[2021-08-28] MEDS ORDERED: SIMETHICONE 80 MG TAB.CHEW (FP) PO PRN (13:20)
[2021-08-28 14:22] VITALS: BP 128/74; PULSE 117; TEMP 98.6
== END 2021-08-28 15:59 | disposition home or self-care (01) | DRG 919 ==
LOC: JER 19:19 → JERBED 08-21 01:08 → J6S 08-21 09:16
PROVIDERS: ADMIT Internal Medicine; ATTEND Nurse Practitioner Acute Care
DX: N99.820 Postprocedural hemorrhage of a genitourinary system organ or structure following a genitourinary system procedure (principal); A41.9 Sepsis, unspecified organism; N17.9 Acute kidney failure, unspecified; N39.0 Urinary tract infection, site not specified; N13.30 Unspecified hydronephrosis; K92.1 Melena; D62 Acute posthemorrhagic anemia; T81.40XA Infection following a procedure, unspecified, initial encounter; T81.44XA Sepsis following a procedure, initial encounter; E78.5 Hyperlipidemia, unspecified; I10 Essential (primary) hypertension; E11.9 Type 2 diabetes mellitus without complications; N40.0 Benign prostatic hyperplasia without lower urinary tract symptoms; D69.6 Thrombocytopenia, unspecified; Y65.8 Other specified misadventures during surgical and medical care; R31.9 Hematuria, unspecified; R33.9 Retention of urine, unspecified; R50.9 Fever, unspecified
CPT/HCPCS: 36415; 36430; 71045-TC-FY; 74177-TC; 80048; 80053; 81003; 82272; 82962; 83605; 83735; 85025; 85027; 85610; 85730; 86078; 86850; 86900; 86901; 86922; 87040; 87086; 93005; 93010; 97116-GP; 97162-GP; 99285-25; C9803; J0131; P9058; Q9967; U0003; U0005

== ENCOUNTER 2021-08-31 19:22 | Inpatient (IN) | payer OTHER ==
[2021-08-31 21:44] LABS: BASO % 0.7 % (0-2.0); EOS % 0.6 % (0-4.5); HEMATOCRIT 25.2 % (35.4-49); HEMOGLOBIN 8.3 GM/dL (11.7-16.9); LYMPH % 15.6 % (8-40); MCH 23.2 pg (25.7-33.7); MCHC 32.7 g/dl (32.0-35.9); MEAN CELL VOLUME 70.9 fl (80-96); MEAN PLT VOLUME 6.1 fl (7.5-11.1); MONO % 9.7 % (3.8-10.2); NEUT % 73.4 % (42.8-82.8); PLATELET COUNT 273 10^3/uL (134-434); RBC 3.56 M/mm3 (4.00-5.60); WHITE BLOOD COUNT 6.5 K/mm3 (4.0-10.0)
[2021-08-31 21:59] LABS: INR 1.39 (0.83-1.09); PROTHROMBIN TIME (PATIENT) 15.6 SEC (9.7-13.0)
[2021-08-31 22:10] LABS: ALBUMIN 2.6 g/dl (3.4-5.0); CALCIUM 8.8 mg/dL (8.5-10.1)
[2021-08-31 22:11] LABS: BLOOD UREA NITROGEN 12.7 mg/dL (7-18)
[2021-08-31 22:14] LABS: CREATININE 1.3 mg/dL (0.55-1.3)
[2021-08-31 22:15] LABS: BILIRUBIN,TOTAL 0.6 mg/dL (0.2-1); TOT PROT 7.3 g/dl (6.4-8.2)
[2021-08-31 22:18] LABS: URINE APPEARANCE TURBID; URINE COLOR RED
[2021-08-31 22:19] LABS: URINE BILIRUBIN NEGATIVE (NEGATIVE)
[2021-08-31 22:20] LABS: URINE PROTEIN 4+ (NEGATIVE)
[2021-08-31 22:21] LABS: URINE GLUCOSE (UA) 3+ (NEGATIVE); URINE UROBILINOGEN 0.2 mg/dL (0.2-1.0)
[2021-08-31 22:32] LABS: ANISOCYTOSIS 2+; MACROCYTOSIS 1+; PLATELET ESTIMATE NORMAL; TARGET CELLS 1+
[2021-08-31 22:56] LABS: URINE RBC 28 /uL (0-23.9); URINE WBC 1 /uL (0-25.8)
[2021-08-31 22:57] LABS: EPI CELLS 15 /uL (0-25.1); HYALINE CASTS 0 /uL (0-3.1)
[2021-08-31] MEDS ORDERED: MAG HYDROX/AL HYDROX/SIMETH 30 ML UNIT-DOSE CUP PO ONE (22:59)
[2021-08-31] MEDS ORDERED: MAG HYDROX/AL HYDROX/SIMETH 30 ML UNIT-DOSE CUP ONE (23:26)
[2021-08-31] MEDS ORDERED: LACTATED RINGERS SOLUTION 1000 ML INFUS.BAG IV ONE (23:37)
[2021-09-01 00:01] LABS: URINE BACTERIA FEW /hpf (NEGATIVE)
[2021-09-01] MEDS ORDERED: ACETAMINOPHEN 325 MG TABLET (FP) ONE ×2 (03:07→14:29)
[2021-09-01] MEDS: SODIUM CHLORIDE 1,000 ML IV SCH (03:18)
[2021-09-01] MEDS: ACETAMINOPHEN 325 MG TABLET (FP) PO PRN ×2 (03:19→14:35)
[2021-09-01 08:33] LABS: BASO % 0.2 % (0-2.0); EOS % 0.2 % (0-4.5); HEMATOCRIT 21.3 % (35.4-49); LYMPH % 7.6 % (8-40); MCH 23.3 pg (25.7-33.7); MCHC 32.9 g/dl (32.0-35.9); MEAN PLT VOLUME 6.3 fl (7.5-11.1); MONO % 10.4 % (3.8-10.2); NEUT % 81.6 % (42.8-82.8); PLATELET COUNT 258 10^3/uL (134-434); RDW 20.6 % (11.9-15.9); RETICULOCYTES 4.27 % (0.5-1.5); WHITE BLOOD COUNT 10.6 K/mm3 (4.0-10.0)
[2021-09-01 08:36] LABS: INR 1.39 (0.83-1.09); PROTHROMBIN TIME (PATIENT) 16.3 SEC (9.7-13.0)
[2021-09-01 08:44] LABS: ALBUMIN 2.5 g/dl (3.4-5.0); BLOOD UREA NITROGEN 12.5 mg/dL (7-18); CALCIUM 8.4 mg/dL (8.5-10.1)
[2021-09-01 08:49] LABS: BILIRUBIN,TOTAL 0.6 mg/dL (0.2-1); TOT PROT 6.6 g/dl (6.4-8.2)
[2021-09-01 09:18] LABS: CREATININE 1.1 mg/dL (0.55-1.3)
[2021-09-01] MEDS ORDERED: VALSARTAN 80 MG TABLET ONE ×2 (10:33→11:10)
[2021-09-01] MEDS: INSULIN SLIDING SCALE (NOVOLOG) 1 VIAL SQ SCH ×4 (10:57→23:01)
[2021-09-01] MEDS: VALSARTAN 160 MG TABLET PO SCH (11:27)
[2021-09-01] MEDS: EZETIMIBE 10 MG TABLET (FP) PO SCH (11:27)
[2021-09-01] MEDS: BRIMONIDINE TARTRATE 0.2% OPHTHALMIC 5 ML BOTTLE OU SCH ×2 (11:47→23:57)
[2021-09-01] MEDS: TIMOLOL 0.5% OPHTHALMIC SOL 5 ML BOTTLE OU SCH ×2 (11:48→23:56)
[2021-09-01] MEDS ORDERED: PIPERACILLIN/TAZOB 3.375 GM 3.375 GM in DEXTROSE 5%-WATER - 50 ML IVPB ONE (14:08)
[2021-09-01] MEDS ORDERED: VANCOMYCIN 1 GM in D5W (PRE-DOCKED) 1,000 MG/250 ML IVPB ONE (14:09)
[2021-09-01] MEDS ORDERED: LACTATED RINGERS SOLUTION 1,000 ML/1,000 ML INFUS.BAG IV SCH (14:30)
[2021-09-01] MEDS ORDERED: VANCOMYCIN 1 GRAM (PRE-DOCKED) 1,000 MG/250 ML BAG IVPB ONE (14:49)
[2021-09-01] MEDS ORDERED: PIPERACILLIN/TAZOB 3.375 GM 3.375 GM/50 ML BAG IVPB ONE (14:50)
[2021-09-01 16:41] LABS: CREATININE, URINE RANDOM < 13.0 mg/dL (30-150)
[2021-09-01] MEDS: PIPERACILLIN/TAZOB 3.375 GM 3.375 GM in DEXTROSE 5%-WATER - 50 ML IVPB SCH (18:00)
[2021-09-01] MEDS: LATANOPROST 0.005% OPHTH SOLN 2.5ML BOTTLE OU SCH (23:58)
[2021-09-02] MEDS: ACETAMINOPHEN 325 MG TABLET (FP) PO PRN (00:39)
[2021-09-02] MEDS ORDERED: PIPERACILLIN/TAZOBACTAM 3.375 GM VIAL IVPB ONE ×3 (02:31→17:10)
[2021-09-02] MEDS ORDERED: DEXTROSE 5%-WATER - 50 ML IVPB ONE ×3 (02:31→17:10)
[2021-09-02] MEDS: PIPERACILLIN/TAZOB 3.375 GM 3.375 GM in DEXTROSE 5%-WATER - 50 ML IVPB SCH ×3 (02:47→17:47)
[2021-09-02] MEDS: SODIUM CHLORIDE 1,000 ML IV SCH (02:47)
[2021-09-02] MEDS: INSULIN SLIDING SCALE (NOVOLOG) 1 VIAL SQ SCH ×4 (06:02→21:34)
[2021-09-02] MEDS ORDERED: PT OWN MED DRAWER 7, Y5N ONE (09:00)
[2021-09-02] MEDS: EZETIMIBE 10 MG TABLET (FP) PO SCH (09:12)
[2021-09-02] MEDS: VALSARTAN 160 MG TABLET PO SCH (09:12)
[2021-09-02] MEDS: BRIMONIDINE TARTRATE 0.2% OPHTHALMIC 5 ML BOTTLE OU SCH ×2 (09:16→21:33)
[2021-09-02] MEDS: TIMOLOL 0.5% OPHTHALMIC SOL 5 ML BOTTLE OU SCH ×2 (09:16→21:33)
[2021-09-02 09:39] LABS: ALBUMIN 2.3 g/dl (3.4-5.0); CALCIUM 8.3 mg/dL (8.5-10.1)
[2021-09-02 09:40] LABS: MAGNESIUM 2.6 mg/dL (1.8-2.4)
[2021-09-02 09:42] LABS: BASO % 0.3 % (0-2.0); EOS % 0.7 % (0-4.5); HEMATOCRIT 20.9 % (35.4-49); LYMPH % 20.8 % (8-40); MCH 23.4 pg (25.7-33.7); MCHC 32.5 g/dl (32.0-35.9); MEAN PLT VOLUME 6.4 fl (7.5-11.1); MONO % 12.6 % (3.8-10.2); NEUT % 65.6 % (42.8-82.8); PHOSPHOROUS 3.1 mg/dL (2.5-4.9); PLATELET COUNT 245 10^3/uL (134-434); RBC 2.91 M/mm3 (4.00-5.60); RDW 20.5 % (11.9-15.9); WHITE BLOOD COUNT 4.8 K/mm3 (4.0-10.0)
[2021-09-02 09:43] LABS: CREATININE 0.9 mg/dL (0.55-1.3)
[2021-09-02 09:44] LABS: BILIRUBIN,TOTAL 0.6 mg/dL (0.2-1); TOT PROT 6.3 g/dl (6.4-8.2)
[2021-09-02 09:47] LABS: HEMOGLOBIN 6.8 GM/dL (11.7-16.9)
[2021-09-02] MEDS: LACTATED RINGERS SOLUTION 1,000 ML/1,000 ML INFUS.BAG IV SCH (14:55)
[2021-09-02] MEDS: LATANOPROST 0.005% OPHTH SOLN 2.5ML BOTTLE OU SCH (21:33)
[2021-09-03] MEDS ORDERED: PIPERACILLIN/TAZOBACTAM 3.375 GM VIAL IVPB ONE ×3 (00:49→17:32)
[2021-09-03] MEDS ORDERED: DEXTROSE 5%-WATER - 50 ML IVPB ONE ×3 (00:49→17:32)
[2021-09-03] MEDS: ACETAMINOPHEN 325 MG TABLET (FP) PO PRN ×4 (00:59→22:49)
[2021-09-03] MEDS: PIPERACILLIN/TAZOB 3.375 GM 3.375 GM in DEXTROSE 5%-WATER - 50 ML IVPB SCH ×3 (01:16→18:10)
[2021-09-03] MEDS: INSULIN SLIDING SCALE (NOVOLOG) 1 VIAL SQ SCH ×4 (07:00→21:09)
[2021-09-03 08:32] LABS: HEMATOCRIT 23.1 % (35.4-49); HEMOGLOBIN 7.5 GM/dL (11.7-16.9); MCH 23.7 pg (25.7-33.7); MCHC 32.3 g/dl (32.0-35.9); MEAN CELL VOLUME 73.4 fl (80-96); PLATELET COUNT 246 10^3/uL (134-434); RBC 3.15 M/mm3 (4.00-5.60); RDW 20.1 % (11.9-15.9); WHITE BLOOD COUNT 3.4 K/mm3 (4.0-10.0)
[2021-09-03 08:39] LABS: ALBUMIN 2.2 g/dl (3.4-5.0); CALCIUM 8.4 mg/dL (8.5-10.1)
[2021-09-03 08:40] LABS: BLOOD UREA NITROGEN 8.9 mg/dL (7-18)
[2021-09-03 08:44] LABS: BILIRUBIN,TOTAL 0.5 mg/dL (0.2-1); TOT PROT 6.2 g/dl (6.4-8.2)
[2021-09-03] MEDS ORDERED: PT OWN MED DRAWER 7, Y5N ONE (09:51)
[2021-09-03] MEDS: EZETIMIBE 10 MG TABLET (FP) PO SCH (09:58)
[2021-09-03] MEDS: VALSARTAN 160 MG TABLET PO SCH (09:58)
[2021-09-03] MEDS: TIMOLOL 0.5% OPHTHALMIC SOL 5 ML BOTTLE OU SCH ×2 (10:37→22:07)
[2021-09-03] MEDS: BRIMONIDINE TARTRATE 0.2% OPHTHALMIC 5 ML BOTTLE OU SCH ×2 (10:37→22:07)
[2021-09-03] MEDS: LACTATED RINGERS SOLUTION 1,000 ML/1,000 ML INFUS.BAG IV SCH (13:26)
[2021-09-03] MEDS: LATANOPROST 0.005% OPHTH SOLN 2.5ML BOTTLE OU SCH (22:07)
[2021-09-04] MEDS ORDERED: PIPERACILLIN/TAZOBACTAM 3.375 GM VIAL IVPB ONE ×3 (01:06→17:16)
[2021-09-04] MEDS ORDERED: DEXTROSE 5%-WATER - 50 ML IVPB ONE ×3 (01:06→17:17)
[2021-09-04] MEDS: PIPERACILLIN/TAZOB 3.375 GM 3.375 GM in DEXTROSE 5%-WATER - 50 ML IVPB SCH ×3 (01:32→18:23)
[2021-09-04] MEDS: LACTATED RINGERS SOLUTION 1,000 ML/1,000 ML INFUS.BAG IV SCH ×2 (05:23→19:02)
[2021-09-04] MEDS: INSULIN SLIDING SCALE (NOVOLOG) 1 VIAL SQ SCH ×4 (06:42→21:01)
[2021-09-04 08:45] LABS: HEMATOCRIT 25.2 % (35.4-49); HEMOGLOBIN 8.2 GM/dL (11.7-16.9); MCH 23.9 pg (25.7-33.7); MCHC 32.7 g/dl (32.0-35.9); MEAN CELL VOLUME 73.1 fl (80-96); MEAN PLT VOLUME 5.9 fl (7.5-11.1); PLATELET COUNT 273 10^3/uL (134-434); RBC 3.44 M/mm3 (4.00-5.60); RDW 20.3 % (11.9-15.9); WHITE BLOOD COUNT 3.9 K/mm3 (4.0-10.0)
[2021-09-04 09:02] LABS: ALBUMIN 2.2 g/dl (3.4-5.0); BLOOD UREA NITROGEN 5.9 mg/dL (7-18); CALCIUM 8.4 mg/dL (8.5-10.1)
[2021-09-04 09:05] LABS: CREATININE 0.9 mg/dL (0.55-1.3)
[2021-09-04 09:07] LABS: BILIRUBIN,TOTAL 0.4 mg/dL (0.2-1); TOT PROT 6.3 g/dl (6.4-8.2)
[2021-09-04] MEDS ORDERED: PT OWN MED DRAWER 7, Y5N ONE (09:55)
[2021-09-04] MEDS: ACETAMINOPHEN 325 MG TABLET (FP) PO PRN ×2 (10:01→19:48)
[2021-09-04] MEDS: VALSARTAN 160 MG TABLET PO SCH (10:02)
[2021-09-04] MEDS: BRIMONIDINE TARTRATE 0.2% OPHTHALMIC 5 ML BOTTLE OU SCH ×2 (10:03→21:01)
[2021-09-04] MEDS: EZETIMIBE 10 MG TABLET (FP) PO SCH (10:03)
[2021-09-04] MEDS: TIMOLOL 0.5% OPHTHALMIC SOL 5 ML BOTTLE OU SCH ×2 (10:03→21:01)
[2021-09-04] MEDS ORDERED: LIDOCAINE HCL 2% JELLY 10 ML CARTRIDGE UR ONE (13:58)
[2021-09-04] MEDS ORDERED: INSULIN (NOVOLOG) ASPART 100 UNITS/ML 10ML VIAL ONE (20:46)
[2021-09-04] MEDS: LATANOPROST 0.005% OPHTH SOLN 2.5ML BOTTLE OU SCH (21:01)
[2021-09-05] MEDS ORDERED: DEXTROSE 5%-WATER - 50 ML IVPB ONE ×2 (01:38→10:58)
[2021-09-05] MEDS ORDERED: PIPERACILLIN/TAZOBACTAM 3.375 GM VIAL IVPB ONE ×2 (01:38→10:58)
[2021-09-05] MEDS: ACETAMINOPHEN 325 MG TABLET (FP) PO PRN ×3 (01:50→22:19)
[2021-09-05] MEDS: PIPERACILLIN/TAZOB 3.375 GM 3.375 GM in DEXTROSE 5%-WATER - 50 ML IVPB SCH ×2 (02:03→11:14)
[2021-09-05] MEDS: INSULIN SLIDING SCALE (NOVOLOG) 1 VIAL SQ SCH ×4 (07:18→22:07)
[2021-09-05] MEDS: LACTATED RINGERS SOLUTION 1,000 ML/1,000 ML INFUS.BAG IV SCH (07:41)
[2021-09-05 08:32] LABS: HEMATOCRIT 25.7 % (35.4-49); HEMOGLOBIN 8.3 GM/dL (11.7-16.9); MCH 23.5 pg (25.7-33.7); MCHC 32.1 g/dl (32.0-35.9); MEAN CELL VOLUME 73.1 fl (80-96); PLATELET COUNT 277 10^3/uL (134-434); RBC 3.52 M/mm3 (4.00-5.60); RDW 20.8 % (11.9-15.9); WHITE BLOOD COUNT 3.9 K/mm3 (4.0-10.0)
[2021-09-05 08:54] LABS: CALCIUM 8.3 mg/dL (8.5-10.1)
[2021-09-05 08:55] LABS: ALBUMIN 2.4 g/dl (3.4-5.0); BLOOD UREA NITROGEN 8.4 mg/dL (7-18)
[2021-09-05 09:00] LABS: BILIRUBIN,TOTAL 0.8 mg/dL (0.2-1); TOT PROT 6.5 g/dl (6.4-8.2)
[2021-09-05] MEDS: VALSARTAN 160 MG TABLET PO SCH (11:13)
[2021-09-05] MEDS: EZETIMIBE 10 MG TABLET (FP) PO SCH (11:13)
[2021-09-05] MEDS: TIMOLOL 0.5% OPHTHALMIC SOL 5 ML BOTTLE OU SCH ×2 (11:14→22:06)
[2021-09-05] MEDS: BRIMONIDINE TARTRATE 0.2% OPHTHALMIC 5 ML BOTTLE OU SCH ×2 (11:15→22:07)
[2021-09-05] MEDS ORDERED: PHENAZOPYRIDINE HCL 100 MG TABLET (FP) PO ONE (12:30)
[2021-09-05] MEDS: LATANOPROST 0.005% OPHTH SOLN 2.5ML BOTTLE OU SCH (22:07)
[2021-09-06] MEDS: INSULIN SLIDING SCALE (NOVOLOG) 1 VIAL SQ SCH ×5 (06:14→21:24)
[2021-09-06 06:19] LABS: EPI CELLS 2 /uL (0-25.1); HYALINE CASTS 3 /uL (0-3.1); PH,URINE 6.5 (5.0-8.0); URINE APPEARANCE CLOUDY; URINE BACTERIA 38 /uL (0-1359); URINE BILIRUBIN NEGATIVE (NEGATIVE); URINE COLOR YELLOW; URINE GLUCOSE (UA) 3+ (NEGATIVE); URINE KETONE NEGATIVE (NEGATIVE); URINE LEUK ESTERASE 3+ (NEGATIVE); URINE NITRITE NEGATIVE (NEGATIVE); URINE PROTEIN 2+ (NEGATIVE); URINE UROBILINOGEN 0.2 mg/dL (0.2-1.0); URINE WBC 4276 /uL (0-25.8)
[2021-09-06 08:35] LABS: HEMATOCRIT 26.9 % (35.4-49); HEMOGLOBIN 8.7 GM/dL (11.7-16.9); MCH 23.5 pg (25.7-33.7); MCHC 32.4 g/dl (32.0-35.9); MEAN CELL VOLUME 72.6 fl (80-96); MEAN PLT VOLUME 6.1 fl (7.5-11.1); PLATELET COUNT 286 10^3/uL (134-434); RBC 3.71 M/mm3 (4.00-5.60); RDW 20.6 % (11.9-15.9); WHITE BLOOD COUNT 4.5 K/mm3 (4.0-10.0)
[2021-09-06 09:00] LABS: CALCIUM 8.8 mg/dL (8.5-10.1)
[2021-09-06 09:01] LABS: BLOOD UREA NITROGEN 8.1 mg/dL (7-18)
[2021-09-06 09:05] LABS: CREATININE 0.9 mg/dL (0.55-1.3)
[2021-09-06 09:26] LABS: URINE RBC 561.3 /uL (0-23.9); YEAST NON SEEN (NEGATIVE)
[2021-09-06] MEDS ORDERED: PT OWN MED DRAWER 7, Y5N ONE (09:26)
[2021-09-06] MEDS: VALSARTAN 160 MG TABLET PO SCH (09:33)
[2021-09-06] MEDS: EZETIMIBE 10 MG TABLET (FP) PO SCH (09:33)
[2021-09-06] MEDS: BRIMONIDINE TARTRATE 0.2% OPHTHALMIC 5 ML BOTTLE OU SCH ×2 (09:34→21:23)
[2021-09-06] MEDS: TIMOLOL 0.5% OPHTHALMIC SOL 5 ML BOTTLE OU SCH ×2 (09:35→21:24)
[2021-09-06 10:36] LABS: EPI CELLS 8 /uL (0-25.1); HYALINE CASTS 2 /uL (0-3.1); PH,URINE 6.5 (5.0-8.0); URINE APPEARANCE TURBID; URINE BACTERIA 50 /uL (0-1359); URINE BILIRUBIN NEGATIVE (NEGATIVE); URINE COLOR ORANGE; URINE GLUCOSE (UA) 2+ (NEGATIVE); URINE KETONE NEGATIVE (NEGATIVE); URINE LEUK ESTERASE 3+ (NEGATIVE); URINE NITRITE NEGATIVE (NEGATIVE); URINE PROTEIN 2+ (NEGATIVE); URINE UROBILINOGEN 0.2 mg/dL (0.2-1.0); URINE WBC 7121 /uL (0-25.8)
[2021-09-06 10:53] LABS: URINE RBC 1163.9 /uL (0-23.9); YEAST NON SEEN (NEGATIVE)
[2021-09-06] MEDS ORDERED: INSULIN (NOVOLOG) ASPART 100 UNITS/ML 10ML VIAL ONE (12:15)
[2021-09-06] MEDS: AMOX TR/POT CLAV 875MG/125MG TABLETS (FP) PO SCH (17:57)
[2021-09-06] MEDS: LATANOPROST 0.005% OPHTH SOLN 2.5ML BOTTLE OU SCH (21:24)
[2021-09-06] MEDS: ACETAMINOPHEN 325 MG TABLET (FP) PO PRN (22:46)
[2021-09-07] MEDS: INSULIN SLIDING SCALE (NOVOLOG) 1 VIAL SQ SCH ×4 (06:25→22:02)
[2021-09-07] MEDS: AMOX TR/POT CLAV 875MG/125MG TABLETS (FP) PO SCH (10:07)
[2021-09-07] MEDS ORDERED: PT OWN MED DRAWER 7, Y5N ONE ×2 (10:20→21:07)
[2021-09-07] MEDS: VALSARTAN 160 MG TABLET PO SCH (10:38)
[2021-09-07] MEDS: TAMSULOSIN HCL 0.4 MG CAP PO SCH (10:38)
[2021-09-07] MEDS: EZETIMIBE 10 MG TABLET (FP) PO SCH (10:38)
[2021-09-07] MEDS: BRIMONIDINE TARTRATE 0.2% OPHTHALMIC 5 ML BOTTLE OU SCH ×2 (10:40→22:03)
[2021-09-07] MEDS: TIMOLOL 0.5% OPHTHALMIC SOL 5 ML BOTTLE OU SCH ×2 (10:40→22:03)
[2021-09-07] MEDS: ACETAMINOPHEN 325 MG TABLET (FP) PO PRN (17:33)
[2021-09-07] MEDS ORDERED: INSULIN (NOVOLOG) ASPART 100 UNITS/ML 10ML VIAL ONE (21:18)
[2021-09-07] MEDS: LATANOPROST 0.005% OPHTH SOLN 2.5ML BOTTLE OU SCH (22:04)
[2021-09-07] MEDS: AMITRIPTYLINE HCL 10 MG TABLET PO SCH (22:04)
[2021-09-07] MEDS: MINERAL OIL/PET HY-PHL TOPICAL OINTMENT 454 GM JAR TP SCH ×2 (22:04→22:13)
[2021-09-08] MEDS: INSULIN SLIDING SCALE (NOVOLOG) 1 VIAL SQ SCH ×4 (06:01→21:11)
[2021-09-08] MEDS: TAMSULOSIN HCL 0.4 MG CAP PO SCH (09:15)
[2021-09-08] MEDS: EZETIMIBE 10 MG TABLET (FP) PO SCH (09:16)
[2021-09-08] MEDS: VALSARTAN 160 MG TABLET PO SCH (09:16)
[2021-09-08 09:20] LABS: HEMATOCRIT 26.5 % (35.4-49); HEMOGLOBIN 8.6 GM/dL (11.7-16.9); MCH 23.6 pg (25.7-33.7); MCHC 32.5 g/dl (32.0-35.9); MEAN CELL VOLUME 72.4 fl (80-96); MEAN PLT VOLUME 6.1 fl (7.5-11.1); PLATELET COUNT 245 10^3/uL (134-434); RBC 3.66 M/mm3 (4.00-5.60); WHITE BLOOD COUNT 4.6 K/mm3 (4.0-10.0)
[2021-09-08 09:51] LABS: CALCIUM 8.8 mg/dL (8.5-10.1)
[2021-09-08 09:52] LABS: ALBUMIN 2.6 g/dl (3.4-5.0); BLOOD UREA NITROGEN 8.2 mg/dL (7-18)
[2021-09-08] MEDS: ACETAMINOPHEN 325 MG TABLET (FP) PO PRN ×2 (09:53→21:55)
[2021-09-08 09:55] LABS: CREATININE 0.9 mg/dL (0.55-1.3)
[2021-09-08 09:57] LABS: BILIRUBIN,TOTAL 0.6 mg/dL (0.2-1); TOT PROT 6.9 g/dl (6.4-8.2)
[2021-09-08] MEDS ORDERED: TAMSULOSIN HCL 0.4 MG CAP PO SCH (10:21)
[2021-09-08] MEDS: BRIMONIDINE TARTRATE 0.2% OPHTHALMIC 5 ML BOTTLE OU SCH ×2 (12:25→21:11)
[2021-09-08] MEDS: TIMOLOL 0.5% OPHTHALMIC SOL 5 ML BOTTLE OU SCH ×2 (12:26→21:10)
[2021-09-08] MEDS: MINERAL OIL/PET HY-PHL TOPICAL OINTMENT 454 GM JAR TP SCH ×2 (13:52→21:11)
[2021-09-08] MEDS ORDERED: INSULIN (NOVOLOG) ASPART 100 UNITS/ML 10ML VIAL ONE (20:59)
[2021-09-08] MEDS ORDERED: PT OWN MED DRAWER 7, Y5N ONE (20:59)
[2021-09-08] MEDS: AMITRIPTYLINE HCL 10 MG TABLET PO SCH (21:08)
[2021-09-08] MEDS: LATANOPROST 0.005% OPHTH SOLN 2.5ML BOTTLE OU SCH (21:12)
[2021-09-09] MEDS: INSULIN SLIDING SCALE (NOVOLOG) 1 VIAL SQ SCH ×4 (06:40→21:46)
[2021-09-09] MEDS: TAMSULOSIN HCL 0.4 MG CAP PO SCH (08:51)
[2021-09-09 09:08] LABS: HEMATOCRIT 26.9 % (35.4-49); HEMOGLOBIN 8.6 GM/dL (11.7-16.9); MCH 23.4 pg (25.7-33.7); MCHC 32.1 g/dl (32.0-35.9); MEAN CELL VOLUME 72.7 fl (80-96); MEAN PLT VOLUME 6.4 fl (7.5-11.1); PLATELET COUNT 237 10^3/uL (134-434); RDW 21.2 % (11.9-15.9); WHITE BLOOD COUNT 4.2 K/mm3 (4.0-10.0)
[2021-09-09 09:25] LABS: CALCIUM 8.8 mg/dL (8.5-10.1)
[2021-09-09 09:26] LABS: ALBUMIN 2.5 g/dl (3.4-5.0); MAGNESIUM 2.1 mg/dL (1.8-2.4)
[2021-09-09 09:29] LABS: CREATININE 0.8 mg/dL (0.55-1.3); PHOSPHOROUS 2.9 mg/dL (2.5-4.9)
[2021-09-09 09:30] LABS: BILIRUBIN,TOTAL 0.9 mg/dL (0.2-1); TOT PROT 6.8 g/dl (6.4-8.2)
[2021-09-09] MEDS ORDERED: PT OWN MED DRAWER 7, Y5N ONE ×2 (10:33→20:40)
[2021-09-09] MEDS: VALSARTAN 160 MG TABLET PO SCH (10:34)
[2021-09-09] MEDS: EZETIMIBE 10 MG TABLET (FP) PO SCH (10:34)
[2021-09-09] MEDS: BRIMONIDINE TARTRATE 0.2% OPHTHALMIC 5 ML BOTTLE OU SCH ×2 (10:36→21:34)
[2021-09-09] MEDS: MINERAL OIL/PET HY-PHL TOPICAL OINTMENT 454 GM JAR TP SCH ×2 (10:36→21:35)
[2021-09-09] MEDS: TIMOLOL 0.5% OPHTHALMIC SOL 5 ML BOTTLE OU SCH ×2 (10:36→21:34)
[2021-09-09] MEDS ORDERED: INSULIN (NOVOLOG) ASPART 100 UNITS/ML 10ML VIAL ONE (11:38)
[2021-09-09] MEDS: LATANOPROST 0.005% OPHTH SOLN 2.5ML BOTTLE OU SCH (21:33)
[2021-09-09] MEDS: AMITRIPTYLINE HCL 10 MG TABLET PO SCH (21:35)
[2021-09-09] MEDS: ACETAMINOPHEN 325 MG TABLET (FP) PO PRN (21:41)
[2021-09-10] MEDS: INSULIN SLIDING SCALE (NOVOLOG) 1 VIAL SQ SCH ×4 (06:47→21:47)
[2021-09-10] MEDS ORDERED: LIDOCAINE HCL 2% JELLY 10 ML CARTRIDGE UR ONE (09:06)
[2021-09-10 09:58] LABS: BASO % 0.3 % (0-2.0); EOS % 0.9 % (0-4.5); HEMATOCRIT 28.1 % (35.4-49); HEMOGLOBIN 9.2 GM/dL (11.7-16.9); LYMPH % 29.1 % (8-40); MCH 23.4 pg (25.7-33.7); MCHC 32.7 g/dl (32.0-35.9); MEAN CELL VOLUME 71.5 fl (80-96); MEAN PLT VOLUME 6.2 fl (7.5-11.1); MONO % 11.9 % (3.8-10.2); NEUT % 57.8 % (42.8-82.8); PLATELET COUNT 233 10^3/uL (134-434); RBC 3.93 M/mm3 (4.00-5.60); RDW 20.9 % (11.9-15.9)
[2021-09-10 10:09] LABS: ALBUMIN 2.7 g/dl (3.4-5.0); BLOOD UREA NITROGEN 10.2 mg/dL (7-18)
[2021-09-10 10:11] LABS: MAGNESIUM 1.9 mg/dL (1.8-2.4)
[2021-09-10 10:12] LABS: CREATININE 0.9 mg/dL (0.55-1.3); PHOSPHOROUS 2.7 mg/dL (2.5-4.9)
[2021-09-10 10:13] LABS: TOT PROT 7.2 g/dl (6.4-8.2)
[2021-09-10 10:14] LABS: BILIRUBIN,TOTAL 0.5 mg/dL (0.2-1)
[2021-09-10] MEDS: TAMSULOSIN HCL 0.4 MG CAP PO SCH (10:58)
[2021-09-10] MEDS: EZETIMIBE 10 MG TABLET (FP) PO SCH (10:58)
[2021-09-10] MEDS: VALSARTAN 80 MG TABLET PO SCH (10:58)
[2021-09-10] MEDS: BRIMONIDINE TARTRATE 0.2% OPHTHALMIC 5 ML BOTTLE OU SCH ×2 (11:00→21:39)
[2021-09-10] MEDS: MINERAL OIL/PET HY-PHL TOPICAL OINTMENT 454 GM JAR TP SCH ×2 (11:00→21:40)
[2021-09-10] MEDS: TIMOLOL 0.5% OPHTHALMIC SOL 5 ML BOTTLE OU SCH ×2 (11:01→21:38)
[2021-09-10] MEDS ORDERED: PT OWN MED DRAWER 7, Y5N ONE (20:51)
[2021-09-10] MEDS: AMITRIPTYLINE HCL 10 MG TABLET PO SCH (21:36)
[2021-09-10] MEDS: ACETAMINOPHEN 325 MG TABLET (FP) PO PRN (21:37)
[2021-09-10] MEDS: LATANOPROST 0.005% OPHTH SOLN 2.5ML BOTTLE OU SCH (21:39)
[2021-09-11] MEDS: INSULIN SLIDING SCALE (NOVOLOG) 1 VIAL SQ SCH ×4 (06:07→21:30)
[2021-09-11] MEDS ORDERED: INSULIN (NOVOLOG) ASPART 100 UNITS/ML 10ML VIAL ONE ×2 (06:13→11:28)
[2021-09-11] MEDS: TAMSULOSIN HCL 0.4 MG CAP PO SCH (08:42)
[2021-09-11] MEDS ORDERED: PT OWN MED DRAWER 7, Y5N ONE ×2 (10:01→21:01)
[2021-09-11] MEDS: VALSARTAN 80 MG TABLET PO SCH (10:04)
[2021-09-11] MEDS: BRIMONIDINE TARTRATE 0.2% OPHTHALMIC 5 ML BOTTLE OU SCH ×2 (10:05→21:23)
[2021-09-11] MEDS: EZETIMIBE 10 MG TABLET (FP) PO SCH (10:05)
[2021-09-11] MEDS: TIMOLOL 0.5% OPHTHALMIC SOL 5 ML BOTTLE OU SCH ×2 (10:06→21:24)
[2021-09-11] MEDS: MINERAL OIL/PET HY-PHL TOPICAL OINTMENT 454 GM JAR TP SCH ×2 (10:06→21:32)
[2021-09-11] MEDS: AMITRIPTYLINE HCL 10 MG TABLET PO SCH (21:23)
[2021-09-11] MEDS: LATANOPROST 0.005% OPHTH SOLN 2.5ML BOTTLE OU SCH (21:24)
[2021-09-12] MEDS: INSULIN SLIDING SCALE (NOVOLOG) 1 VIAL SQ SCH ×4 (06:26→21:15)
[2021-09-12 10:08] LABS: HEMATOCRIT 26.3 % (35.4-49); HEMOGLOBIN 8.4 GM/dL (11.7-16.9); MCH 22.8 pg (25.7-33.7); MCHC 31.8 g/dl (32.0-35.9); MEAN CELL VOLUME 71.6 fl (80-96); MEAN PLT VOLUME 6.4 fl (7.5-11.1); PLATELET COUNT 221 10^3/uL (134-434); RBC 3.67 M/mm3 (4.00-5.60); RDW 20.4 % (11.9-15.9); WHITE BLOOD COUNT 4.9 K/mm3 (4.0-10.0)
[2021-09-12 10:25] LABS: BLOOD UREA NITROGEN 12.3 mg/dL (7-18); CALCIUM 8.7 mg/dL (8.5-10.1)
[2021-09-12 10:28] LABS: CREATININE 0.8 mg/dL (0.55-1.3)
[2021-09-12] MEDS: TAMSULOSIN HCL 0.4 MG CAP PO SCH (10:59)
[2021-09-12] MEDS: TIMOLOL 0.5% OPHTHALMIC SOL 5 ML BOTTLE OU SCH ×2 (11:00→21:15)
[2021-09-12] MEDS: VALSARTAN 80 MG TABLET PO SCH (11:00)
[2021-09-12] MEDS: EZETIMIBE 10 MG TABLET (FP) PO SCH (11:00)
[2021-09-12] MEDS: BRIMONIDINE TARTRATE 0.2% OPHTHALMIC 5 ML BOTTLE OU SCH ×2 (11:01→21:14)
[2021-09-12] MEDS: MINERAL OIL/PET HY-PHL TOPICAL OINTMENT 454 GM JAR TP SCH ×2 (11:01→21:15)
[2021-09-12] MEDS: AMITRIPTYLINE HCL 10 MG TABLET PO SCH (21:15)
[2021-09-12] MEDS: LATANOPROST 0.005% OPHTH SOLN 2.5ML BOTTLE OU SCH (21:16)
[2021-09-13] MEDS: INSULIN SLIDING SCALE (NOVOLOG) 1 VIAL SQ SCH ×4 (06:17→21:02)
[2021-09-13] MEDS ORDERED: PT OWN MED DRAWER 7, Y5N ONE (10:01)
[2021-09-13] MEDS ORDERED: INSULIN (NOVOLOG) ASPART 100 UNITS/ML 10ML VIAL ONE (10:02)
[2021-09-13] MEDS: VALSARTAN 80 MG TABLET PO SCH (10:04)
[2021-09-13] MEDS: EZETIMIBE 10 MG TABLET (FP) PO SCH (10:04)
[2021-09-13] MEDS: TAMSULOSIN HCL 0.4 MG CAP PO SCH (10:05)
[2021-09-13] MEDS: BRIMONIDINE TARTRATE 0.2% OPHTHALMIC 5 ML BOTTLE OU SCH ×2 (10:08→21:02)
[2021-09-13] MEDS: TIMOLOL 0.5% OPHTHALMIC SOL 5 ML BOTTLE OU SCH ×2 (10:09→21:02)
[2021-09-13] MEDS: MINERAL OIL/PET HY-PHL TOPICAL OINTMENT 454 GM JAR TP SCH ×2 (10:09→21:06)
[2021-09-13] MEDS: AMITRIPTYLINE HCL 10 MG TABLET PO SCH (21:01)
[2021-09-13] MEDS: LATANOPROST 0.005% OPHTH SOLN 2.5ML BOTTLE OU SCH (21:02)
[2021-09-14] MEDS: ACETAMINOPHEN 325 MG TABLET (FP) PO PRN ×2 (00:42→20:54)
[2021-09-14] MEDS: INSULIN SLIDING SCALE (NOVOLOG) 1 VIAL SQ SCH ×4 (06:10→21:01)
[2021-09-14] MEDS: EZETIMIBE 10 MG TABLET (FP) PO SCH (10:13)
[2021-09-14] MEDS: VALSARTAN 80 MG TABLET PO SCH (10:13)
[2021-09-14] MEDS: TAMSULOSIN HCL 0.4 MG CAP PO SCH (10:13)
[2021-09-14] MEDS: TIMOLOL 0.5% OPHTHALMIC SOL 5 ML BOTTLE OU SCH ×2 (10:14→21:01)
[2021-09-14] MEDS: MINERAL OIL/PET HY-PHL TOPICAL OINTMENT 454 GM JAR TP SCH ×2 (10:14→21:01)
[2021-09-14] MEDS: BRIMONIDINE TARTRATE 0.2% OPHTHALMIC 5 ML BOTTLE OU SCH ×2 (10:14→21:01)
[2021-09-14 15:40] VITALS: BMI 25.0
[2021-09-14] MEDS ORDERED: PT OWN MED DRAWER 7, Y5N ONE (20:43)
[2021-09-14] MEDS: AMITRIPTYLINE HCL 10 MG TABLET PO SCH (21:00)
[2021-09-14] MEDS: LATANOPROST 0.005% OPHTH SOLN 2.5ML BOTTLE OU SCH (21:01)
[2021-09-15] MEDS: INSULIN SLIDING SCALE (NOVOLOG) 1 VIAL SQ SCH ×4 (06:19→21:35)
[2021-09-15] MEDS ORDERED: PT OWN MED DRAWER 7, Y5N ONE ×2 (08:54→21:32)
[2021-09-15] MEDS: VALSARTAN 80 MG TABLET PO SCH (09:27)
[2021-09-15] MEDS: EZETIMIBE 10 MG TABLET (FP) PO SCH (09:27)
[2021-09-15] MEDS: TAMSULOSIN HCL 0.4 MG CAP PO SCH (09:27)
[2021-09-15] MEDS: BRIMONIDINE TARTRATE 0.2% OPHTHALMIC 5 ML BOTTLE OU SCH ×2 (09:28→21:35)
[2021-09-15] MEDS: TIMOLOL 0.5% OPHTHALMIC SOL 5 ML BOTTLE OU SCH ×2 (09:28→21:35)
[2021-09-15] MEDS: MINERAL OIL/PET HY-PHL TOPICAL OINTMENT 454 GM JAR TP SCH ×2 (09:29→21:35)
[2021-09-15 09:56] LABS: BASO % 0.3 % (0-2.0); EOS % 1.2 % (0-4.5); HEMATOCRIT 27.4 % (35.4-49); HEMOGLOBIN 8.7 GM/dL (11.7-16.9); LYMPH % 36.8 % (8-40); MCH 22.5 pg (25.7-33.7); MCHC 31.7 g/dl (32.0-35.9); MEAN CELL VOLUME 70.9 fl (80-96); MEAN PLT VOLUME 6.3 fl (7.5-11.1); MONO % 13.4 % (3.8-10.2); NEUT % 48.3 % (42.8-82.8); PLATELET COUNT 232 10^3/uL (134-434); RBC 3.86 M/mm3 (4.00-5.60); RDW 20.6 % (11.9-15.9); WHITE BLOOD COUNT 3.9 K/mm3 (4.0-10.0)
[2021-09-15 10:21] LABS: CALCIUM 8.8 mg/dL (8.5-10.1)
[2021-09-15 10:22] LABS: ALBUMIN 2.9 g/dl (3.4-5.0); BLOOD UREA NITROGEN 11.4 mg/dL (7-18)
[2021-09-15 10:25] LABS: CREATININE 0.9 mg/dL (0.55-1.3); PHOSPHOROUS 3.1 mg/dL (2.5-4.9)
[2021-09-15 10:26] LABS: BILIRUBIN,TOTAL 0.6 mg/dL (0.2-1); TOT PROT 6.9 g/dl (6.4-8.2)
[2021-09-15] MEDS: ACETAMINOPHEN 325 MG TABLET (FP) PO PRN (10:39)
[2021-09-15] MEDS ORDERED: INSULIN (NOVOLOG) ASPART 100 UNITS/ML 10ML VIAL ONE (11:56)
[2021-09-15 12:41] LABS: ANISOCYTOSIS 2+; MACROCYTOSIS 0; PLATELET ESTIMATE NORMAL; TARGET CELLS 1+; TEAR DROP CELLS 0
[2021-09-15] MEDS: SODIUM CHLORIDE 0.45% 1,000 ML IV SCH (15:10)
[2021-09-15] MEDS: AMITRIPTYLINE HCL 10 MG TABLET PO SCH (21:35)
[2021-09-15] MEDS: LATANOPROST 0.005% OPHTH SOLN 2.5ML BOTTLE OU SCH (21:35)
[2021-09-16] MEDS: ACETAMINOPHEN 325 MG TABLET (FP) PO PRN (04:22)
[2021-09-16] MEDS: INSULIN SLIDING SCALE (NOVOLOG) 1 VIAL SQ SCH ×4 (06:26→21:05)
[2021-09-16 09:38] LABS: HEMATOCRIT 25.7 % (35.4-49); HEMOGLOBIN 8.2 GM/dL (11.7-16.9); MCH 22.4 pg (25.7-33.7); MCHC 31.9 g/dl (32.0-35.9); MEAN CELL VOLUME 70.2 fl (80-96); MEAN PLT VOLUME 6.3 fl (7.5-11.1); PLATELET COUNT 224 10^3/uL (134-434); RBC 3.66 M/mm3 (4.00-5.60); RDW 20.4 % (11.9-15.9); WHITE BLOOD COUNT 3.9 K/mm3 (4.0-10.0)
[2021-09-16 10:10] LABS: BLOOD UREA NITROGEN 10.8 mg/dL (7-18)
[2021-09-16 10:11] LABS: ALBUMIN 2.6 g/dl (3.4-5.0); CREATININE 0.9 mg/dL (0.55-1.3)
[2021-09-16 10:12] LABS: BILIRUBIN,TOTAL 0.4 mg/dL (0.2-1); CALCIUM 8.9 mg/dL (8.5-10.1); TOT PROT 6.7 g/dl (6.4-8.2)
[2021-09-16] MEDS ORDERED: PT OWN MED DRAWER 7, Y5N ONE ×2 (10:13→21:03)
[2021-09-16] MEDS: TAMSULOSIN HCL 0.4 MG CAP PO SCH (10:16)
[2021-09-16] MEDS: VALSARTAN 80 MG TABLET PO SCH (10:17)
[2021-09-16] MEDS: TIMOLOL 0.5% OPHTHALMIC SOL 5 ML BOTTLE OU SCH ×2 (10:17→21:07)
[2021-09-16] MEDS: EZETIMIBE 10 MG TABLET (FP) PO SCH (10:17)
[2021-09-16] MEDS: BRIMONIDINE TARTRATE 0.2% OPHTHALMIC 5 ML BOTTLE OU SCH ×2 (10:17→21:06)
[2021-09-16] MEDS: MINERAL OIL/PET HY-PHL TOPICAL OINTMENT 454 GM JAR TP SCH ×2 (10:17→21:06)
[2021-09-16] MEDS ORDERED: INSULIN (NOVOLOG) ASPART 100 UNITS/ML 10ML VIAL ONE ×2 (11:29→21:03)
[2021-09-16] MEDS: SODIUM CHLORIDE 0.45% 1,000 ML IV SCH (11:52)
[2021-09-16] MEDS: AMITRIPTYLINE HCL 10 MG TABLET PO SCH (21:06)
[2021-09-16] MEDS: LATANOPROST 0.005% OPHTH SOLN 2.5ML BOTTLE OU SCH (21:07)
[2021-09-17] MEDS: INSULIN SLIDING SCALE (NOVOLOG) 1 VIAL SQ SCH ×2 (06:36→11:37)
[2021-09-17] MEDS ORDERED: INSULIN (NOVOLOG) ASPART 100 UNITS/ML 10ML VIAL ONE (07:44)
[2021-09-17 10:06] VITALS: BP 133/69; PULSE 104; TEMP 98.6
[2021-09-17] MEDS: EZETIMIBE 10 MG TABLET (FP) PO SCH (11:35)
[2021-09-17] MEDS: VALSARTAN 80 MG TABLET PO SCH (11:35)
[2021-09-17] MEDS: MINERAL OIL/PET HY-PHL TOPICAL OINTMENT 454 GM JAR TP SCH (11:35)
[2021-09-17] MEDS: TAMSULOSIN HCL 0.4 MG CAP PO SCH (11:35)
[2021-09-17] MEDS: TIMOLOL 0.5% OPHTHALMIC SOL 5 ML BOTTLE OU SCH (11:35)
[2021-09-17] MEDS: BRIMONIDINE TARTRATE 0.2% OPHTHALMIC 5 ML BOTTLE OU SCH (11:35)
== END 2021-09-17 16:43 | disposition home or self-care (01) | DRG 872 ==
LOC: JER 19:22 → JERBED 23:00 → J7W 09-01 22:02 → J8W 09-05 18:16
PROVIDERS: ADMIT Internal Medicine; ATTEND Internal Medicine
PROC: 3E1K78Z Irrigation of Genitourinary Tract using Irrigating Substance, Via Natural or Artificial Opening (ICD-10-PCS; 2021-09-01)
PROC: 30233N1 Transfusion of Nonautologous Red Blood Cells into Peripheral Vein, Percutaneous Approach (ICD-10-PCS; principal; 2021-09-02)
DX: A41.9 Sepsis, unspecified organism (principal); N17.9 Acute kidney failure, unspecified; D62 Acute posthemorrhagic anemia; N30.01 Acute cystitis with hematuria; R33.9 Retention of urine, unspecified; I10 Essential (primary) hypertension; E78.5 Hyperlipidemia, unspecified; D50.9 Iron deficiency anemia, unspecified; N30.81 Other cystitis with hematuria; N40.0 Benign prostatic hyperplasia without lower urinary tract symptoms; D72.829 Elevated white blood cell count, unspecified; E11.65 Type 2 diabetes mellitus with hyperglycemia; H40.9 Unspecified glaucoma
CPT/HCPCS: 36415; 36430; 71045-TC-FY; 80048; 80053; 81003; 82272; 82550; 82570; 82728; 82962; 83540; 83550; 83735; 84100; 84156; 85025; 85027; 85045; 85610; 85730; 86850; 86900; 86901; 86922; 87040; 87086; 93005; 93010; 97116-GP; 97161-GP; 99285-25; C9803-CS; P9058; U0003; U0005

== ENCOUNTER 2024-06-30 05:31 | Emergency (ER) | payer OTHER ==
[2024-06-30 05:48] VITALS: RESP 18; BMI 33.4
[2024-06-30 07:56] LABS: EPI CELLS 12 /uL (0-25.1); HYALINE CASTS 1 /uL (0-3.1); URINE APPEARANCE CLOUDY; URINE BACTERIA 6 /uL (0-1359); URINE BILIRUBIN NEGATIVE (NEGATIVE); URINE COLOR RED; URINE GLUCOSE (UA) 3+ (NEGATIVE); URINE KETONE NEGATIVE (NEGATIVE); URINE LEUK ESTERASE 1+ (NEGATIVE); URINE NITRITE NEGATIVE (NEGATIVE); URINE PROTEIN 3+ (NEGATIVE); URINE RBC 11129 /uL (0-23.9); URINE UROBILINOGEN 0.2 mg/dL (0.2-1.0); URINE WBC 170 /uL (0-25.8)
[2024-06-30 12:05] VITALS: BP 153/87; PULSE 106; TEMP 98.2
== END 2024-06-30 12:05 | disposition home or self-care (01) ==
LOC: JER 05:31
DX: R31.9 Hematuria, unspecified (principal); R31.0 Gross hematuria
CPT/HCPCS: 76775-TC; 76856-TC; 81003; 87086; 99284-25